=== PATIENT | female | born 1960 | race Caucasian/White ===

== ENCOUNTER → 2020-10-23 07:10 | Outpatient (CLI) | payer OTHER, SELFPAY ==
--- NOTE | ~2020-10-23 | MM_ITS ---
EXAMINATION: MM screening jaden BI w dustin HISTORY: Screening mammogram, family history of breast cancer in her mother. TECHNIQUE: Craniocaudal and mediolateral oblique 3-D tomosynthesis images were obtained and synthetic 2-D images were generated. CAD analysis was submitted and interpreted. COMPARISON: 09/23/2019, 08/07/2018, 08/01/2018, 07/11/2017 BREAST PARENCHYMAL COMPOSITION: The breasts are heterogeneously dense, which may obscure small masses . FINDINGS: There is no evidence of suspicious mass, calcification, or architectural distortion to sugg est malignancy in either breast. There has been no suspicious interval change. IMPRESSION: 1. No mammographic evidence of malignancy. 2. Recommend routine screening mammography in one year. BI-RADS Category 1: Negative Reviewed, dictated and finalized at location A. 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
== END ==
PROVIDERS: Visit Provider Physician Assistant
DX: Z12.31 Encounter for screening mammogram for malignant neoplasm of breast (principal)
CPT/HCPCS: 77063; 77067

== ENCOUNTER → 2022-01-04 12:17 | Outpatient (CLI) | payer OTHER, SELFPAY ==
--- NOTE | ~2022-01-04 | MM_ITS ---
EXAMINATION: MM screening jaden BI w dustin HISTORY: Screening TECHNIQUE: Craniocaudal and mediolateral oblique 3-D tomosynthesis images were obtained and synthetic 2-D images were generated. CAD analysis was submitted and interpreted. COMPARISON: Comparison to multiple prior studies sequentially, with oldest reviewed study dated 02/2016. BREAST PARENCHYMAL COMPOSITION: The breasts are heterogenously dense, which may obscure small masses FINDINGS: There is no evidence of suspicious mass, calcification, or architectural distortion to sugg est malignancy in either breast. There has been no suspicious interval change. IMPRESSION: 1. No mammographic evidence of malignancy. 2. Recommend routine screening mammography in one year. BI-RADS Category 1: Negative Reviewed, dictated and finalized at location A.
== END ==
PROVIDERS: PCP Physician Assistant; Visit Provider Physician Assistant
DX: Z12.31 Encounter for screening mammogram for malignant neoplasm of breast (principal)
CPT/HCPCS: 77063; 77067

== ENCOUNTER → 2023-06-13 16:24 | Outpatient (CLI) | payer OTHER, SELFPAY ==
--- NOTE | ~2023-06-13 | MM_ITS ---
EXAMINATION: MM screening jaden BI w dustin HISTORY: Screening mammogram, family history of breast cancer in her mother. TECHNIQUE: Craniocaudal and mediolateral oblique 3-D tomosynthesis images were obtained and synthetic 2-D images were generated. CAD analysis was submitted and interpreted. COMPARISON: 01/04/2022, 10/23/2020, 09/23/2019 BREAST PARENCHYMAL COMPOSITION:The breasts are heterogeneously dense, which may obscure small masses. FINDINGS: There is an area of increased density in the posterior, central to lower right breast, only seen on MLO view. No parenchymal abnormality of the left breast identified. Stable benign-appearing calcifications present bilaterally. IMPRESSION: Increased asymmetric density in the posterior, central lower right breast on MLO view. Spot compressi on and true lateral views, and possibly ultrasound, are recommended for further evaluation. BI-RADS Category 0: Incomplete: Needs additional imaging evaluation. Reviewed, dictated and finalized at location . IMPRESSION: Increased asymmetric density in the posterior, central lower right breast on ML O view. Spot compression and true lateral views, and possibly ultrasound, are r ecommended for further evaluation. BI-RADS Category 0: Incomplete: Needs additional imaging evaluation.
== END ==
PROVIDERS: PCP Physician Assistant; Visit Provider Family Medicine
DX: Z12.31 Encounter for screening mammogram for malignant neoplasm of breast (principal); R92.8 Other abnormal and inconclusive findings on diagnostic imaging of breast
CPT/HCPCS: 77063; 77067

== ENCOUNTER → 2023-07-05 08:20 | Outpatient (CLI) | payer OTHER, SELFPAY ==
--- NOTE | ~2023-07-05 | MMUS_ITS ---
EXAMINATION: MM diagnostic jaden RT w dustin, US breast RT limited HISTORY: Follow-up right breast asymmetry TECHNIQUE: Additional 3-D tomosynthesis images of the right breast were performed and synthetic 2-D i mages were generated. CAD analysis was submitted and interpreted. High resolution Limited right breas t ultrasound was performed. COMPARISON: Comparison to multiple prior studies sequentially, with oldest reviewed study dated 12/2017. BREAST PARENCHYMAL COMPOSITION: The breasts are heterogeneously dense, which may obscure small masses FINDINGS: MAMMOGRAPHIC FINDINGS: There is a focal spiculated asymmetry in the lower aspect of the right breast. There are no suspiciou s calcifications. ULTRASOUND: Limited right breast ultrasound: At 7:00, 5 cm from the nipple there is an irregular shaped hypoechoi c antiparallel 9 mm mass with focal internal echogenic foci, likely calcification. There is mixed pos terior attenuation. At 5:00, 2 cm from the nipple there is a slightly irregular shaped hypoechoic 4 m m mass without internal vascularity or significant posterior features. At 8:00, 5 cm from the nipple, there is an oval hypoechoic 4 mm mass without posterior features. There is internal vascularity. IMPRESSION: 1. Multiple abnormal right breast masses. 2. Ultrasound-guided biopsy of dominant right breast mass at 7:00, 5 cm from the nipple is recommende d. BI-RADS category 4, suspicious findings. Reviewed, dictated and finalized at location A. E CARE NURSING ASSISTANT IMPRESSION: 1. Multiple abnormal right breast masses. 2. Ultrasound-guided biopsy of dominant right breast mass at 7:00, 5 cm from th e nipple is recommended. BI-RADS category 4, suspicious findings.
== END ==
PROVIDERS: PCP Physician Assistant; Visit Provider Physician Assistant
DX: N63.0 Unspecified lump in unspecified breast (principal); R92.8 Other abnormal and inconclusive findings on diagnostic imaging of breast
CPT/HCPCS: 76642; 77061; 77065; G0279

== ENCOUNTER 2023-07-14 09:15 | Outpatient (CLI) | payer OTHER, SELFPAY ==
--- NOTE | ~2023-07-14 | MMUS_ITS ---
EXAMINATION: US breast biopsy RT w image, MM post biopsy invasive RT DATE: 07/14/2023 12:10 (accession [id number]), 07/14/2023 11:43 (accession [id number]) INDICATION: Indeterminate mass at the 7:00 location of the right breast. Ultrasound-guided core biops y is requested to evaluate for malignancy. TECHNIQUE AND FINDINGS: The risks and potential benefits of the procedure were discussed with the patient including bleeding and infection. A time out was performed. The skin of the right breast was prepared and draped in usua l sterile fashion. 1% lidocaine was used for superficial anesthesia. 1% lidocaine with epinephrine wa s used for deep anesthesia. A vacuum-assisted biopsy needle was advanced through to the outer edge of the region of interest from an inferolateral approach utilizing sonographic guidance. A total of five tissue core samples were o btained through the lesion. A tissue marker clip was then placed at the biopsy site. The first marker did not definitely appear to deploy therefore, a second marker was placed. Hemostasis was achieved. A sterile bandage was applied. The patient tolerated procedure well and there was no evidence of immediate complication. The patient was given verbal instructions to return to the Emergency Department in the event of severe breast pa in or rapid breast enlargement. A two view right breast mammogram was obtained to document tissue mar ker clip placement. IMPRESSION: 1. Successful ultrasound-guided vacuum-assisted biopsy of right breast mass with tissue marker placem ent. Reviewed, dictated and finalized at location A. SPECIALIST IMPRESSION: 1. Successful ultrasound-guided vacuum-assisted biopsy of right breast mass wit h tissue marker placement.
== END 2023-07-14 09:16 | disposition home or self-care (01) ==
PROVIDERS: PCP Physician Assistant; Visit Provider Physician Assistant
DX: N63.13 Unspecified lump in the right breast, lower outer quadrant (principal)
CPT/HCPCS: 19083; 88305; 88342; 88360

== ENCOUNTER 2024-12-11 23:45 | Emergency (ER) | payer OTHER, SELFPAY ==
--- NOTE | ~2024-12-11 | XR_ITS ---
Clinical Indication: Palpitations AP and lateral views of the chest: Comparison: None Findings: The lungs are clear, without evidence of focal consolidation or pleural effusion. Possible COPD. Cardiomediastinal silhouette is within normal limits. Bones and soft tissues are unremarkable. Impression: Clear lungs. Possible COPD. Reviewed, dictated and finalized at location . Impression: Clear lungs. Possible COPD.
--- OUTSIDE RECORDS SUMMARY | 2024-12-11 23:47 | XMS_ITS | Encounter Summary ---
Author Organization [facility] Healthcare Address [address] [place] [address] Care Team Providers Care Fire Equipment Inspector Name Role Phone Andriy Burgos MD Primary Care Provider [phone] Reason for Visit * Diagnostic Imaging (Routine) - Closed Specialty Diagnoses / Procedures Referred By Contac t Referred To Contact Procedures Breast Imaging Screening Outside Reference Transcribed Order, Provider Referral ID Status Reason Start Date Expiration Date Visits Re quested Visits Authorized [id number] Closed 08/08/2023 09/06/2024 1 1 Encounter Details Date Type Department Care Team (Late st Contact Info) Description 08/01/2018 Hospital Encounter [facility] [address] [place] [id number] Social History Tobacco Use Types Packs/Day Years Used Date Smoking Tobacco: Former Cigarettes 0.5 22 S tarted: 1982 Smokeless Tobacco: Never Alcohol Use Standard Drinks/Week Comments Yes 0 (1 standard drink = 0.6 oz pur e alcohol) AUDIT-C Answer Date Recorded Q1: How often do you have a drink containing alc ohol? 2-3 times a week 11/03/2023 Q2: How many drinks containi ng alcohol do you have on a typical day when you are drinking? 3 or 4 11/03/2023 Q3: How often do you have si x or more drinks on one occasion? Weekly 11/03/2023 Personal Safety Answer Date Recorded Have you ever been in or are you currently in a harmful physical or emotional relationship or is someone making you feel afraid or unsafe? Denies 09/25/2023 Comments No Sex and Gender Information Value Date Recorded Sex Assigned at Not on file Legal Sex Female 12:53 AM BELL ATTENDANT Gender Identity Not on file Sexual Orientation Not on file documented as of this encounter Functional Status * Audit-C Score Answer Date of Assessment Author 1 09/25/2023 6:42 AM BELL ATTENDANT Shaylee Herrera RN * Question Answer Date of Assessment Author Q1: How often do you have a drink containing alcohol? 2-3 times a week 11/01/2023 2:10 PM BELL ATTENDANT Lillie Grissom , EDDIE Q2: How many drinks containing alcohol do you have on a typical day when you are drinking? 3 or 4 11/03/2023 2:57 PM BELL ATTENDANT Mary Anne Marshall Q3: How often do you have six or more drinks on one occasion? Weekly 11/03/2023 2:57 PM BELL ATTENDANT Mary Anne Marshall documented as of this encounter Plan of Treatment Not on file documented as of this encounter Procedures Procedure Name Priority Date/Time Associated Diagnosis Comments BREAST IMAGING MG SCREENING OUTSIDE REFERENCE Routine 08/01/2018 12:00 AM BELL ATTENDANT documented in this encounter Results * Breast Imaging Screening Outside Reference (08/01/2018 12:00 AM BELL ATTENDANT) Impressions RAD_MAMMO_[facility] - 08/08/2023 10:02 AM BELL ATTENDANT These images are for Reference purposes only and have not been reviewed by [facility] Radiology. There will be no report generated by a [facility] Radiologist. Narrative [facility]MO[facility] - 08/08/2023 10:02 AM BELL ATTENDANT EXAMINATION: Images For Reference Purposes Only us Provider Transcribed Order IMG MAMMO PROCEDURES Final Result [facility] documented in this encounter Visit Diagnoses Not on filedocumented in this encounter Care Teams Fire Equipment Inspector Relationship Specialty Start Date End Date Andriy Burgos MD [address] [place] [id number] PCP - General 03/03/11 11/04/21 documented as of this encounter
--- OUTSIDE RECORDS SUMMARY | 2024-12-11 23:47 | XMS_ITS | Encounter Summary ---
Author Organization [facility] Address [address] [place] [address] Care Team Providers Care Government Affairs Manager Name Role Phone Sue Thompson Primary Care Provider [phone] Reason for Referral * Procedure (Routine) - Closed Specialty Diagnoses / Procedures Referred By Charly owusu Referred To Contact CARDIOLOGY Diagnoses Benign essential hypertension Hyperlipidemia, unspecified hyperlipidemia type Procedures STRESS TEST ONLY, EXERCISE Rajinder Schumacher MD [address] [address] Phone: tel: fax: Referral ID Status Reason Start Date Expiration Date Visits Re quested Visits Authorized [id number] Closed 10/30/2024 10/30/2025 1 1 Reason for Visit * Procedure (Routine) - Closed Specialty Diagnoses / Procedures Referred By Charly owusu Referred To Contact CARDIOLOGY Diagnoses Benign essential hypertension Hyperlipidemia, unspecified hyperlipidemia type Procedures STRESS TEST ONLY, EXERCISE Rajinder Schumacher MD [address] [address] Phone: tel: fax: Referral ID Status Reason Start Date Expiration Date Visits Re quested Visits Authorized [id number] Closed 10/30/2024 10/30/2025 1 1 Encounter Details Date Type Department Care Team (Late st Contact Info) Description 12/11/2024 9:30 AM CDT Hospital Encounter [facility] [address] [place] [address] Rajinder Schumacher MD [facility] [address] [place] [address] Arrived Social History Tobacco Use Types Packs/Day Years Used Date Smoking Tobacco: Former Cigarettes 1976 Smokeless Tobacco: Never Alcohol Use Standard Drinks/Week Comments Yes 0 (1 standard drink = 0.6 oz pur e alcohol) social Comments Unknown Sex and Gender Information Value Date Recorded Sex Assigned at Female 11/08/2024 9:53 AM CDT Legal Sex Female 7:23 PM CDT Gender Identity Not on file Sexual Orientation Not on file documented as of this encounter Plan of Treatment Upcoming Encounters Date Type Department Care Team (Late st Contact Info) Description 01/15/2025 8:45 AM CDT Office Visit [facility] [address] [place] [address] Rajinder Schumacher MD [facility]. [address] [address] Pending Results Name Type Priority Associated Diagnoses Date /Time STRESS TEST ONLY, EXERCISE Cardiac Services Routine Benign essential hypertension Hyperlipidemia, unspecified hyperlipidemia type 12/11/2024 9:30 AM CDT documented as of this encounter Procedures Procedure Name Priority Date/Time Associated Diagnosis Comments STRESS TEST ONLY, EXERCISE Routine 12/11/2024 9:30 AM CDT Benign essential hypertension Hyperlipidemia, unspecified hyperlipidemia type Procedure Note - Rajinder Schumacher MD - 12/11/2024 9:30 AM CDTThis note is in progress. Patient Name: SOLO DEL TORO Date of : 1960 Account: [id number] Facility: [facility] Location: [facility] Date of Service: 12/11/2024 Stress Test INDICATION: Chest pain. PROCEDURE: Patient exercised on treadmill using standard Koby protocol. She was monitored for heart rate response, blood pressure response, ECG changes and arrhythmias at rest, during exercise and recovery. FINDINGS: Baseline ECG demonstrated normal sinus rhythm, minimal upsloping ST depression. Resting heart rate was 102 beats per minute, blood pressure at rest 150/84 mmHg. The patient exercised 7 minutes Koby protocol, achieved a maximum heart rate of 166 beats per minute, which is 106% of her maximum age predicted heart rate. Patient achieved a maximal blood pressure of 162/84 mmHg. During exercise, the patient had no complaints of chest pain. Test was terminated for fatigue. Stress ECG demonstrated minimal upsloping ST changes. In recovery, the patient's symptoms resolved. Recovery ECG demonstrated no significant ST elevation or depression. There were no arrhythmias during exercise or in recovery. CONCLUSION: 1. Clinically and electrocardiographically negative treadmill exercise test with adequate exercise capacity. 2. Overall, test is low risk for myocardial event. Signature/Date: RAJINDER SCHUMACHER #[id number] /DIN documented in this encounter Visit Diagnoses Diagnosis Benign essential hypertension Essential hypertension, benign Hyperlipidemia, unspecified hyperlipidemia type documented in this encounter Care Teams Government Affairs Manager Relationship Specialty Start Date End Date Sue Thompson PA [address] [place] [address] PCP - General PHYSICIAN FURNACE HELPER 08/20/24 documented as of this encounter
--- OUTSIDE RECORDS SUMMARY | 2024-12-11 23:47 | XMS_ITS | Clinical Summary ---
Author Organization [facility] [address] Address [address] [place] [address] Care Team Providers Care Control Systems Engineer Name Role Phone Andriy Burgos MD Unavailable [phone] Melani Mclean MD Unavailable [phone] Rajni Jimenez MD Unavailable [phone] Kevin Ryder MD PhD Unavailable [facility] Allergies No known active allergies Medications cyanocobalamin (Dodex) 1,000 mcg/mL injectionIndicat ions:Prevention of Vitamin B12 Deficiency Inject 1 mL (1,000 mcg total) into the muscle as instructed every 30 (thirty) days Last dose more than one month Active triamcinolone (KENALOG) 0.5 % creamIndications :Skin Inflammation,ski n rash Apply 1 Application topically as needed for irritation or rash Active LORazepam (ATIVAN) 0.5 mg tablet Take 1 tablet (0.5 mg total) by mouth as needed for anxiety 3 Active LORazepam (ATIVAN) 1 mg tabletIndication s:anxiety Take 1 tablet (1 mg total) by mouth as needed for anxiety 3 Active losartan (COZAAR) 25 mg tabletIndication s:hypertension Take 1 tablet (25 mg total) by mouth every morning 4 Active levothyroxine sodium (Tirosint) 88 mcg capsuleIndicatio ns:hypothyroidis m Take 1 capsule (88 mcg total) by mouth every morning Active MAGNESIUM ORALIndications: supplement Take 1 tablet by mouth 2 (two) times a day Active selenium 200 mcg tabletIndication s:supplement Take 1 tablet (200 mcg total) by mouth daily after lunch Active cholecalciferol, vitD3,/vit K2 (VITAMIN D3-VITAMIN K2 ORAL)Indications :supplement Take 4 sprays by mouth every morning Liposome spray once a day Active UNABLE TO FINDIndications: supplement Take 1-2 each by mouth as needed (stress) Med Name: neurocalm Active UNABLE TO FINDIndications: supplement Take 3 each by mouth every morning Med Name: catalyn (multivitamin) Active UNABLE TO FINDIndications: supplement Take 2 each by mouth every morning Med Name: AHCC Active UNABLE TO FINDIndications: supplement Take 1 each by mouth every morning Med Name: PRP 53:liposome spray 3 sprays once a day Active UNABLE TO FINDIndications: supplement Take 2 each by mouth 2 (two) times a day Med Name: advantage ambertose Active UNABLE TO FINDIndications: supplement Take 1-2 each by mouth nightly Med Name: Drenamine tablet Active UNABLE TO FINDIndications: supplement/ blood pressure Take 2 each by mouth daily after lunch Med Name: cataplex G: Blood pressure supplement take once a day Active UNABLE TO FINDIndications: supplement per Chiropractor for sinuses Take 2 each by mouth 2 (two) times a day Med Name: sinatrol Active insulin syringe-needle U-100 1 mL 31 gauge x 5/16 syringe USE TO INJECT B12 ONCE WEEKLY FOR 90 DAYS. Active Active Problems Problem Noted Date Diagnosed Date Personal history of radiation therapy 12/27/2023 Malignant neoplasm of female breast 09/01/2023 Malignant neoplasm of lower- outer quadrant of right breast of female, estrogen receptor positive 08/30/2023 Cancer Staging:Pathologic stage from 10/31/2023:Stage IA(pT1c, pN0(sn), cM0, G2, ER+, OK+, HER2-) - Signed by Rajni Jimenez MD on 10/31/2023 Dizziness and giddiness 12/12/2022 Sensorineural hearing loss (SNHL) of both ears 0 11/25/2021 Tinnitus of both ears 11/25/2021 Otosclerosis of left ear 11/25/2021 Hypothyroidism 01/11/2014 Overview (12/02/2016): HYPOTHYROIDISM NOS Encounters Date Type Department Care Team Description 11/25/2024 Telephone [facility] Surgery [facility] [address] [place] [address] Stephanie Sutton RN 11/22/2024 10:11 AM CDT - 11/22/2024 11:59 PM CDT Hospital Encounter [facility] [address] [place] [id number] Malignant neoplasm of lower-outer quadrant of right breast of female, estrogen receptor positive (HCC) Discharge Disposition: Discharge to home or self care 11/22/2024 Results Follow-Up [facility] Urology [address] [facility] Medical Office Building [address] [place] [address] Melani Mclean MD 11/15/2024 Telephone [facility] Surgery [facility] [address] [place] [address] Melani Mclean MD 10/31/2024 4:00 PM BINDERY LEADPERSON Office Visit [facility] Medical Office Building 2 Radiation Oncology [address] [place] [id number] Sarha Escoto, PA Malignant neoplasm of lower-outer quadrant of right breast of female, estrogen receptor positive (HCC) (Primary Dx); Personal history of radiation therapy 10/25/2024 Telephone [facility] Surgery [facility] Floor [address] [place] [address] Melani Mclean MD Med Refill from Last 3 Months Surgical History Surgery Date Site/Laterality Comments BREAST BIOPSY 08/28/2022 - 08/27/2023 WISDOM TOOTH EXTRACTION 08/28/2016 - 08/27/2017 BREAST LUMPECTOMY 09/25/2023 Right Medical History Medical History Date Comments Disorder of thyroid Thyroid dise ase Anxiety Thyroid disease HL (hearing loss) Dizziness Palpitations Hypertension Breast cancer (HCC) Family History Medical History Relation Name Comments Alzheimer's disease Father Heart disease Father Breast cancer Mother Heart disease Mother Ovarian cancer Mother Thyroid disease Mother Breast cancer Sister Thyroid disease Sister Thyroid dise ase; Anesthesia problems Neg Hx Relation Name Status Comments Father Mother Sister Alive Social History Tobacco Use Types Packs/Day Years Used Date Smoking Tobacco: Former Cigarettes 0.5 22 S tarted: 1981 Smokeless Tobacco: Never Tobacco Cessation:Counseling Given: Not Answered Alcohol Use Standard Drinks/Week Comments Yes 0 [...] on file Legal Sex Female 12:53 AM BINDERY LEADPERSON Gender Identity Not on file Sexual Orientation Not on file Obstetrics History Last Filed Vital Signs Vital Sign Reading Time Taken Comments Blood Pressure 149/88 10/31/2024 4:06 PM BINDERY LEADPERSON Pulse 96 10/31/2024 4:06 PM BINDERY LEADPERSON Temperature 36.6 C (97.8 F) 11/03/2023 2:54 PM BINDERY LEADPERSON Respiratory Rate 18 11/03/2023 2:54 PM BINDERY LEADPERSON Oxygen Saturation 100% 10/31/2024 4:06 PM BINDERY LEADPERSON Inhaled Oxygen Concentration - - Weight 71.7 kg (158 lb) 10/31/2024 4:06 PM BINDERY LEADPERSON Height 170.2 cm (5' 7.01 ) 05/24/2024 9:35 AM CD T Body Mass Index 24.74 05/24/2024 9:35 AM CDT Plan of Treatment Health Maintenance Due Date Last Done Comments Cervical Cancer Screening 1962 Colon Cancer Screening-Colonoscopy 1962 Depression Screening 1962 Hepatitis C Screening 1962 DTaP/Tdap/Td Vaccine (1 - Tdap) 1973 Hepatitis B Screening 1980 Regular Well Visit/Exam 18-64 1980 Zoster Vaccine (1 of 2) 2012 Influenza Vaccine (Season Ended) 2025 Breast Cancer Screening-Mammogram 05/24/2025 024 Pneumococcal vaccine <65 Aged Out No longer eligible based on patient's age to complete this topic Medical Devices Implanted Type Area Supply Chain Development Manager Device Identifier Shelf Expiration Date Model / Serial / Lot [employer] Marker Tissue Needle Delivery Spiral Capped Seed Radiopaque Skilled Nursing Stainless Steel Low Nickel [employer] [id number] - [id number] Implanted:Qty: 1 on 09/14/2023 by Joie Brito MD at [facility] Right: Breast [employer] [id number] 03/27/2027 [id number] Procedures Procedure Name Priority Date/Time Associated Diagnosis Comments MRI BREAST BILATERAL W WO CONTRAST Schedule Routine, Read Routine (OP Routine) 11/22/2024 12:00 PM CDT Malignant neoplasm of lower-outer quadrant of right breast of female, estrogen receptor positive (HCC) DIAGNOSTIC MAMMOGRAM BILATERAL W ANDREA Schedule Routine, Read Routine (OP Routine) 05/24/2024 10:42 AM CDT Malignant neoplasm of lower-outer quadrant of right breast of female, estrogen receptor positive (HCC) Malignant neoplasm of right female breast, unspecified estrogen receptor status, unspecified site of breast (HCC) from Last 3 Months or Most Recently Relevant to Health Maintenance Results * MRI Breast Bilateral W WO Contrast (11/22/2024 12:00 PM CDT) Anatomical Region Laterality Modality Breast Bilateral Magnetic Resonan ce 11/22/2024 1:57 PM CDT Impressions 11/22/2024 2:49 PM CDT 1. No evidence of malignancy in either breast. 2. Area of enhancement measuring 1.1 cm within the left lower outer posterior breast skin at the inframammary fold, likely artifactual versus a skin mole. Clinical correlation is recommended. 3. Post treatment changes of right outer breast conservation therapy with a known postoperative seroma measuring up to 4.5 cm. OVERALL FINAL ASSESSMENT: BI-RADS Category 2: Benign. RECOMMENDATION: 1. Recommend clinical evaluation of the area of enhancement of the left lower outer breast skin. 2. Annual screening mammography and breast MRI are recommended. Dictated by: Torin Hermosillo D.O. The radiology attending physician has personally reviewed this study, and had reviewed and/or edited this written report and agrees with it. Electronically signed by: Sosa Ledesma M.D. Narrative 11/22/2024 2:49 PM CDT EXAMINATION: 1. MRI EXAMINATION OF THE BREASTS WITH AND WITHOUT CONTRAST 2. 3D POST PROCESSING ON A DEDICATED 3D WORKSTATION HISTORY: High-risk Screening. 64-year-old woman presents for a high-risk screening MRI with history of right breast invasive ductal carcinoma status post BCT in early 2023. TECHNIQUE: MRI examination of the breasts per breast tumor protocol with and without gadolinium contrast. A dedicated breast imaging coil was used. The images were transferred to a breast CAD system for 3D post processing and contrast kinetics analysis. CONTRAST: Gadoterate meglumine, 14 ml COMPARISON: Multiple prior studies, most recently 05/24/2024 and dating back to 08/01/2018. BREAST COMPOSITION: Heterogeneous fibroglandular tissue BACKGROUND PARENCHYMAL ENHANCEMENT: Mild FINDINGS: Right: No suspicious mass or non-mass enhancement of the right breast. Known postoperative seroma in the right lower outer breast that measures up to 4.5 x 3.1 x 2.4 cm (AP by TV by CC). Posttreatment changes of right outer breast conservation therapy. Left: No suspicious mass or non-mass enhancement of the left breast. There is an area of enhancement measuring 1.1 x 0.6 cm within the left lower outer posterior breast skin, which may be artifactual versus a skin mole. No abnormally enlarged lymph nodes are identified in the visualized portions of either axilla. Procedure Note Sosa Ledesma MD - 11/22/2024 EXAMINATION: 1. MRI EXAMINATION OF THE BREASTS WITH AND WITHOUT CONTRAST 2. 3D POST PROCESSING ON A DEDICATED 3D WORKSTATION HISTORY: High-risk Screening. 64-year-old woman presents for a high-risk screening MRI with history of right breast invasive ductal carcinoma status post BCT in early 2023. TECHNIQUE: MRI examination of the breasts per breast tumor protocol with and without gadolinium contrast. A dedicated breast imaging coil was used. The images were transferred to a breast CAD system for 3D post processing and contrast kinetics analysis. CONTRAST: Gadoterate meglumine, 14 ml COMPARISON: Multiple prior studies, most recently 05/24/2024 and dating back to 08/01/2018. BREAST COMPOSITION: Heterogeneous fibroglandular tissue BACKGROUND PARENCHYMAL ENHANCEMENT: Mild FINDINGS: Right: No suspicious mass or non-mass enhancement of the right breast. Known postoperative seroma in the right lower outer breast that measures up to 4.5 x 3.1 x 2.4 cm (AP by TV by CC). Posttreatment changes of right outer breast conservation therapy. Left: No suspicious mass or non-mass enhancement of the left breast. There is an area of enhancement measuring 1.1 x 0.6 cm within the left lower outer posterior breast skin, which may be artifactual versus a skin mole. No abnormally enlarged lymph nodes are identified in the visualized portions of either axilla. IMPRESSION: 1. No evidence of malignancy in either breast. 2. Area of enhancement measuring 1.1 cm within the left lower outer posterior breast skin at the inframammary fold, likely artifactual versus a skin mole. Clinical correlation is recommended. 3. Post treatment changes of right outer breast conservation therapy with a known postoperative seroma measuring up to 4.5 cm. OVERALL FINAL ASSESSMENT: BI-RADS Category 2: Benign. RECOMMENDATION: 1. Recommend clinical evaluation of the area of enhancement of the left lower outer breast skin. 2. Annual screening mammography and breast MRI are recommended. Dictated by: Torin Hermosillo D.O. The radiology attending physician has personally reviewed this study, and had reviewed and/or edited this written report and agrees with it. Electronically signed by: Sosa Ledesma M.D. Melani Mclean MD IMG MRI PROCEDURES Elsa loren Result * Diagnostic Mammogram Bilateral W Andrea (05/24/2024 10:42 AM CDT) Anatomical Region Laterality Modality Breast Bilateral Mammography 05/24/2024 10:5 0 AM CDT Impressions 05/24/2024 10:53 AM CDT 1. Surgical changes of RIGHT breast partial mastectomy with radiodense surrounding area that likely represents a seroma. 2. No new suspicious abnormality concerning for malignancy in EITHER breast. OVERALL FINAL ASSESSMENT: BI-RADS Category 2: Benign. RECOMMENDATION: Annual diagnostic mammography is recommended. Dictated by: Nael Clark MD The radiology attending physician has personally reviewed this study, and had reviewed and/or edited this written report and agrees with it. Electronically signed by: Yaima Bullock M.D. Narrative 05/24/2024 10:53 AM CDT EXAMINATION: BILATERAL DIGITAL DIAGNOSTIC MAMMOGRAM INCLUDING CAD AND BILATERAL DIGITAL BREAST TOMOSYNTHESIS HISTORY: Patient with right breast invasive ductal carcinoma status post partial mastectomy. COMPARISON: Mammogram from 09/14/2023, multiple prior mammograms dating back to 09/23/2019 TECHNIQUE: Full field digital mammographic views of BOTH breasts were performed, including computer aided detection (CAD) and BILATERAL digital breast tomosynthesis (DBT). BREAST PARENCHYMAL COMPOSITION: There are scattered areas of fibroglandular density. MAMMOGRAM FINDINGS: Surgical changes of partial mastectomy within the posterior aspect of the RIGHT breast. Radiodense area surrounding the surgical site likely represents a seroma. No new suspicious abnormalities identified. No suspicious abnormality noted within the LEFT breast. Procedure Note Yaima Bullock MD - 05/24/2024 EXAMINATION: BILATERAL DIGITAL DIAGNOSTIC MAMMOGRAM INCLUDING CAD AND BILATERAL DIGITAL BREAST TOMOSYNTHESIS HISTORY: Patient with right breast invasive ductal carcinoma status post partial mastectomy. COMPARISON: Mammogram from 09/14/2023, multiple prior mammograms dating back to 09/23/2019 TECHNIQUE: Full field digital mammographic views of BOTH breasts were performed, including computer aided detection (CAD) and BILATERAL digital breast tomosynthesis (DBT). BREAST PARENCHYMAL COMPOSITION: There are scattered areas of fibroglandular density. MAMMOGRAM FINDINGS: Surgical changes of partial mastectomy within the posterior aspect of the RIGHT breast. Radiodense area surrounding the surgical site likely represents a seroma. No new suspicious abnormalities identified. No suspicious abnormality noted within the LEFT breast. IMPRESSION: 1. Surgical changes of RIGHT breast partial mastectomy with radiodense surrounding area that likely represents a seroma. 2. No new suspicious abnormality concerning for malignancy in EITHER breast. OVERALL FINAL ASSESSMENT: BI-RADS Category 2: Benign. RECOMMENDATION: Annual diagnostic mammography is recommended. Dictated by: Nael Clark MD The radiology attending physician has personally reviewed this study, and had reviewed and/or edited this written report and agrees with it. Electronically signed by: Yaima Bullock M.D. Melani Mclean MD IMG MAMMO PROCEDURES Fi nal Result from Last 3 Months or Most Recently Relevant to Health Maintenance Insurance [facility] Care Teams Control Systems Engineer Relationship Specialty Start Date End Date Sue Thompson PA [address] [place] [address] PCP - General Physician Skiff Operator 11/13/24 Andriy Burgos MD [address] [place] [id number] 11/05/21 Melani Mclean MD [address] [id number] Surgeon Surgical Oncology 09/25/23 Rajni Jimenez MD [facility] [address] [address] Radiation Oncologist Radiation Oncology 10/31/23 Kevin Ryder MD PhD [address] [place] [address] Medical Oncologist/Senior Project Manager Medical Oncology 11/01/23
--- OUTSIDE RECORDS SUMMARY | 2024-12-11 23:47 | XMS_ITS | Data Portability ---
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 Plan of Treatment Reminders Order Date Submit Date Provider Last Modified By Organization Details Last Modified Time Details Appointments None recorded. Lab vitamin B12 + folate, serum or blood 2022 023 [facility] [employer], [address], [place], [address], 3 10:45:02 T3, free, serum or plasma 2022 023 [employer] [facility], [address], [place], [address], 3 10:45:03 T4, free, serum 2022 023 [employer] [facility], [address], [place], [address], 3 10:45:00 TSH, serum or plasma 2022 023 [employer] [facility], [address], [place], [address], 3 10:45:01 CMP, serum or plasma 2022 023 [employer] [facility], [address], [place], [address], 3 10:44:57 thyroid peroxidase (tpo) Ab, serum 2022 023 [facility], [address], [address], [place], [address], 3 10:44:59 CBC w/ auto diff 2022 023 [facility], [address], [address], [place], [address], 3 10:44:58 T3, free, serum or plasma 2022 023 [facility], [address], [address], [place], [address], 3 17:05:25 T4, free, serum 2022 023 [facility], [address], [place], [address], 3 17:05:23 TSH, serum or plasma 2022 023 [facility], [address], [place], [address], 3 17:05:24 CMP, serum or plasma 2022 023 [facility], [address], [place], [address], 3 17:05:22 thyroid peroxidase (tpo) Ab, serum 2022 023 [facility], [address], [place], [address], 3 17:05:23 vitamin B12 + folate, serum or blood 2022 023 [facility], [address], [place], [address], 3 17:05:25 cortisol, am, serum 2022 023 [facility], [address], [address], [place], [address], 3 13:29:15 acth, plasma 2022 023 [facility], [address], [address], [place], [address], 3 13:29:15 Referral None recorded. Procedures None recorded. Surgeries None recorded. Imaging MAMMO, screening, digital, bilateral [email or web address] [facility], [address], [address], [place], [address], 3 09:04:52 Medication Orders cyanocobala min (vit B-12) 1,000 mcg/mL injection solution 2022 023 [id number], [address], [place], [id number], 3 09:36:24 Tirosint 100 mcg capsule 2022 023 [facility], [address], [place], [address], 3 12:26:56 Tirosint 100 mcg capsule 2022 023 [facility], [address], [place], [address], 3 13:24:34 escitalopra m 5 mg tablet 2022 023 [email or web address][id number], [address], [place], [id number], 3 17:18:00 cyanocobala min (vit B-12) 1,000 mcg/mL injection solution 2022 023 [facility] #[id number], [address] [facility], [place], [place], [id number], 12:23:08 Tirosint 100 mcg capsule 2022 023 [facility], [address], [place], [address], 12:31:17 Patient TargetsNo targets recorded. Patient InstructionsNo instructions recorded. Reason for Referral None Reported. Results Created Date Observation Date Name Description Value Unit Range Abnormal Flag Note LastModifiedBy Organization Detail LastModifiedTime 01/27/2001/30/2023 COMPR EHENS YOLANDE METAB OLIC PANEL glucose 84 mg/dL 65-99 normal Fasti ng refer ence inter demetrius Not Available [address], [address], 01/30/2023 17:05:22 01/27/20 23 01/30/2023 COMPR EHENS YOLANDE METAB OLIC PANEL urea nitrogen (BUN) 13 mg/dL 7-25 normal Not Available [facility] [address], [address], 01/30/2023 17:05:22 01/27/20 23 01/30/2023 COMPR EHENS YOLANDE METAB OLIC PANEL creatinine 0.77 mg/dL 0.50-1 .05 normal Not Available [address], [address], 01/30/2023 17:05:22 01/27/20 23 01/30/2023 COMPR EHENS YOLANDE METAB OLIC PANEL eGFR 88 mL/mi n/1.7 3m2 > or = 60 normal The eGFR is based on the CKD-E PI 2020 patricia vazquez. To calcu late the new eGFR from a previ ous Creat inine or Cysta kay C claritza t, go to https ://omid quinones.o rg/pr ofess ional s/ kdoqi /gfr% 5Fcal culat or Not Available [address], [address], 01/30/2023 17:05:22 01/27/20 23 01/30/2023 COMPR EHENS YOLANDE METAB OLIC PANEL BUN/creatini ne ratio NOT APPLIC ABLE (calc ) 6-22 Not Available [address], [address], 01/30/2023 17:05:22 01/27/20 23 01/30/2023 COMPR EHENS YOLANDE METAB OLIC PANEL sodium 140 mmol/ L 135-14 6 normal Not Available [address], [address], 01/30/2023 17:05:22 01/27/20 23 01/30/2023 COMPR EHENS YOLANDE METAB OLIC PANEL potassium 4.2 mmol/ L 3.5-5. 3 normal Not Available [address], [address], 01/30/2023 17:05:22 01/27/20 23 01/30/2023 COMPR EHENS YOLADNE METAB OLIC PANEL chloride 102 mmol/ L 98-110 normal Not Available [address], [address], 01/30/2023 17:05:22 01/27/20 23 01/30/2023 COMPR EHENS YOLANDE METAB OLIC PANEL carbon dioxide 29 mmol/ L 20-32 normal Not Available [address], [address], 01/30/2023 17:05:22 01/27/20 23 01/30/2023 COMPR EHENS YOLANDE METAB OLIC PANEL calcium 9.5 mg/dL 8.6-10 .4 normal Not Available [address], [address], 01/30/2023 17:05:22 01/27/20 23 01/30/2023 COMPR EHENS YOLANDE METAB OLIC PANEL protein, total 7.3 g/dL 6.1-8. 1 normal Not Available [address], [address], 01/30/2023 17:05:22 01/27/20 23 01/30/2023 COMPR EHENS YOLANDE METAB OLIC PANEL albumin 4.6 g/dL 3.6-5. 1 normal Not Available [address], [address], 01/30/2023 17:05:22 01/27/20 23 01/30/2023 COMPR EHENS YOLANDE METAB OLIC PANEL globulin 2.7 g/dL_ (calc ) 1.9-3. 7 normal Not Available [address], [address], 01/30/2023 17:05:22 01/27/20 23 01/30/2023 COMPR EHENS YOLANDE METAB OLIC PANEL albumin/glob ulin ratio 1.7 (calc ) 1.0-2. 5 normal Not Available [address], [address], 01/30/2023 17:05:22 01/27/20 23 01/30/2023 COMPR EHENS YOLANDE METAB OLIC PANEL bilirubin, total 0.9 mg/dL 0.2-1. 2 normal Not Available [address], [address], 01/30/2023 17:05:22 01/27/20 23 01/30/2023 COMPR EHENS YOLANDE METAB OLIC PANEL alkaline phosphatase 47 U/L 37-153 normal Not Available [address], [address], 01/30/2023 17:05:22 01/27/20 23 01/30/2023 COMPR EHENS YOLANDE METAB OLIC PANEL AST 13 U/L 10-35 normal Not Available [address], [address], 01/30/2023 17:05:22 01/27/20 23 01/30/2023 COMPR EHENS YOLANDE METAB OLIC PANEL ALT 12 U/L 6-29 normal Not Available [address], [address], 01/30/2023 17:05:22 01/27/20 23 01/30/2023 THYRO ID PEROX IDASE ANTIB ODIES thyroid peroxidase antibodies 45 IU/mL <9 high Not Available [address], [address], 01/30/2023 17:05:23 01/27/20 23 01/30/2023 T4, FREE T4, free 1.4 NG/dL 0.8-1. 8 normal Not Available [address], [address], 01/30/2023 17:05:23 01/27/20 23 01/30/2023 TSH TSH 2.11 mIU/L 0.40-4 .50 normal Not Available [address], [address], 01/30/2023 17:05:24 01/27/20 23 01/30/2023 VITAM IN B12/F OLATE , SERUM PANEL vitamin B12 1700 pg/mL 200-11 00 high Not Available [address], [address], 01/30/2023 17:05:25 01/27/2001/30/2023 VITAM IN B12/F OLATE , SERUM PANEL folate, serum 17.0 NG/mL normal Refer ence Range Low: <3.4 Borde rline : 3.4-5 .4 Illa l: >5.4 Not Available [address] [place], [address], 01/30/2023 17:05:25 01/27/20 23 01/30/2023 T3, FREE T3, free 2.5 pg/mL 2.3-4. 2 normal Not Available [address], [address], 01/30/2023 17:05:25 01/28/20 23 02/01/2023 ACTH, PLASM A acth, plasma 18 pg/mL 6-50 Refer ence range appli es only to speci mens colle cted betwe en 7am-1 0am. Not Available [address], [address], 02/01/2023 13:29:14 01/28/20 23 02/01/2023 CORTI GEOFFREY, A.M. cortisol, A.M. 23.9 mcg/d L high Refer ence Range 8 a.m. (7-9 a.m.) Speci men: 4.0-2 2.0 Not Available [address], [address], 02/01/2023 13:29:15 04/25/20 23 04/27/2023 COMPR EHENS YOLANDE METAB OLIC PANEL glucose 85 mg/dL 65-99 normal Fasti ng refer ence inter demetrius Not Available [address], [address], 04/27/2023 10:44:57 04/25/20 23 04/27/2023 COMPR EHENS YOLANDE METAB OLIC PANEL urea nitrogen (BUN) 19 mg/dL 7-25 normal Not Available [address], [address], 04/27/2023 10:44:57 04/25/20 23 04/27/2023 COMPR EHENS YOLANDE METAB OLIC PANEL creatinine 0.79 mg/dL 0.50-1 .05 normal Not Available [place] [address] [place], [address], 04/27/2023 10:44:57 04/25/20 23 04/27/2023 COMPR EHENS YOLANDE METAB OLIC PANEL eGFR 85 mL/mi n/1.7 3m2 > or = 60 normal Not Available [address] [address] [place], [address], 04/27/2023 10:44:57 04/25/20 23 04/27/2023 COMPR EHENS YOLANDE METAB OLIC PANEL BUN/creatini ne ratio SEE NOTE: (calc ) 6-22 Not Repor linda: BUN and Creat inine are withi n refer ence range . Not Available [place] [address] [place], [address], 04/27/2023 10:44:57 04/25/20 23 04/27/2023 COMPR EHENS YOLANDE METAB OLIC PANEL sodium 139 mmol/ L 135-14 6 normal Not Available [place] [address] [place], [address], 04/27/2023 10:44:57 04/25/20 23 04/27/2023 COMPR EHENS YOLANDE METAB OLIC PANEL potassium 4.1 mmol/ L 3.5-5. 3 normal Not Available [place] [address] [place], [address], 04/27/2023 10:44:57 04/25/20 23 04/27/2023 COMPR EHENS YOLANDE METAB OLIC PANEL chloride 103 mmol/ L 98-110 normal Not Available [place] [address] [place], [address], 04/27/2023 10:44:57 04/25/20 23 04/27/2023 COMPR EHENS YOLANDE METAB OLIC PANEL carbon dioxide 29 mmol/ L 20-32 normal Not Available [place] [address] [place], [address], 04/27/2023 10:44:57 04/25/20 23 04/27/2023 COMPR EHENS YOLANDE METAB OLIC PANEL calcium 9.3 mg/dL 8.6-10 .4 normal Not Available [address], [address], 04/27/2023 10:44:57 04/25/20 23 04/27/2023 COMPR EHENS YOLANDE METAB OLIC PANEL protein, total 6.7 g/dL 6.1-8. 1 normal Not Available [address], [address], 04/27/2023 10:44:57 04/25/2004/27/2023 COMPR EHENS YOLANDE METAB OLIC PANEL albumin 4.4 g/dL 3.6-5. 1 normal Not Available [address], [address], 04/27/2023 10:44:57 04/25/20 23 04/27/2023 COMPR EHENS YOLANDE METAB OLIC PANEL globulin 2.3 g/dL_ (calc ) 1.9-3. 7 normal Not Available [address], [address], 04/27/2023 10:44:57 04/25/20 23 04/27/2023 COMPR EHENS YOLANDE METAB OLIC PANEL albumin/glob ulin ratio 1.9 (calc ) 1.0-2. 5 normal Not Available [address], [address], 04/27/2023 10:44:57 04/25/20 23 04/27/2023 COMPR EHENS YOLANDE METAB OLIC PANEL bilirubin, total 0.8 mg/dL 0.2-1. 2 normal Not Available [address], [address], 04/27/2023 10:44:57 04/25/20 23 04/27/2023 COMPR EHENS YOLANDE METAB OLIC PANEL alkaline phosphatase 44 U/L 37-153 normal Not Available [facility] [address], [address], 04/27/2023 10:44:57 04/25/20 23 04/27/2023 COMPR EHENS YOLANDE METAB OLIC PANEL AST 12 U/L 10-35 normal Not Available [address], [address], 04/27/2023 10:44:57 04/25/20 23 04/27/2023 COMPR EHENS YOLANDE METAB OLIC PANEL ALT 13 U/L 6-29 normal Not Available [address], [address], 04/27/2023 10:44:57 04/25/20 23 04/27/2023 CBC (INCL UDES DIFF/ PLT) white blood cell count 4.5 thous and/u L 3.8-10 .8 normal Not Available [address], [address], 04/27/2023 10:44:58 04/25/20 23 04/27/2023 CBC (INCL UDES DIFF/ PLT) red blood cell count 4.55 mohinder on/uL 3.80-5 .10 normal Not Available [address], [address], 04/27/2023 10:44:58 04/25/20 23 04/27/2023 CBC (INCL UDES DIFF/ PLT) hemoglobin 13.9 g/dL 11.7-1 5.5 normal Not Available [address], [address], 04/27/2023 10:44:58 04/25/20 23 04/27/2023 CBC (INCL UDES DIFF/ PLT) hematocrit 42.7 % 35.0-4 5.0 normal Not Available [address] [place], [address], 04/27/2023 10:44:58 04/25/2004/27/2023 CBC (INCL UDES DIFF/ PLT) MCV 93.8 fL 80.0-1 00.0 normal Not Available [facility] [address], [address], 04/27/2023 10:44:58 04/25/2004/27/2023 CBC (INCL UDES DIFF/ PLT) MCH 30.5 pg 27.0-3 3.0 normal Not Available [facility] [address], [address], 04/27/2023 10:44:58 04/25/2004/27/2023 CBC (INCL UDES DIFF/ PLT) MCHC 32.6 g/dL 32.0-3 6.0 normal Not Available [facility] [address], [address], 04/27/2023 10:44:58 04/25/2004/27/2023 CBC (INCL UDES DIFF/ PLT) RDW 11.8 % 11.0-1 5.0 normal Not Available [facility] [address], [address], 04/27/2023 10:44:58 04/25/2004/27/2023 CBC (INCL UDES DIFF/ PLT) platelet count 223 thous and/u L 140-40 0 normal Not Available [facility] [address], [address], 04/27/2023 10:44:58 04/25/2004/27/2023 CBC (INCL UDES DIFF/ PLT) MPV 10.0 fL 7.5-12 .5 normal Not Available [facility] [address], [address], 04/27/2023 10:44:58 04/25/20 23 04/27/2023 CBC (INCL UDES DIFF/ PLT) absolute neutrophils 2304 cells /uL 1500-7 800 normal Not Available [address], [address], 04/27/2023 10:44:58 04/25/20 23 04/27/2023 CBC (INCL UDES DIFF/ PLT) absolute lymphocytes 1548 cells /uL 850-39 00 normal Not Available [address], [address], 04/27/2023 10:44:58 04/25/20 23 04/27/2023 CBC (INCL UDES DIFF/ PLT) absolute monocytes 477 cells /uL 200-95 0 normal Not Available [address], [address], 04/27/2023 10:44:58 04/25/20 23 04/27/2023 CBC (INCL UDES DIFF/ PLT) absolute eosinophils 99 cells /uL 15-500 normal Not Available [address], [address], 04/27/2023 10:44:58 04/25/20 23 04/27/2023 CBC (INCL UDES DIFF/ PLT) absolute basophils 72 cells /uL 0-200 normal Not Available [facility] [address], [address], 04/27/2023 10:44:58 04/25/20 23 04/27/2023 CBC (INCL UDES DIFF/ PLT) neutrophils 51.2 % normal Not Available [facility] [address], [address], 04/27/2023 10:44:58 04/25/20 23 04/27/2023 CBC (INCL UDES DIFF/ PLT) lymphocytes 34.4 % normal Not Available [facility] [address], [address], 04/27/2023 10:44:58 04/25/20 23 04/27/2023 CBC (INCL UDES DIFF/ PLT) monocytes 10.6 % normal Not Available [address], [address], 04/27/2023 10:44:58 04/25/20 23 04/27/2023 CBC (INCL UDES DIFF/ PLT) eosinophils 2.2 % normal Not Available [address], [address], 04/27/2023 10:44:58 04/25/20 23 04/27/2023 CBC (INCL UDES DIFF/ PLT) basophils 1.6 % normal Not Available [address], [address], 04/27/2023 10:44:58 04/25/20 23 04/27/2023 THYRO ID PEROX IDASE ANTIB ODIES thyroid peroxidase antibodies 77 IU/mL <9 high Not Available [address], [address], 04/27/2023 10:44:59 04/25/20 23 04/27/2023 T4, FREE T4, free 1.5 NG/dL 0.8-1. 8 normal Not Available [address], [address], 04/27/2023 10:45:00 04/25/20 23 04/27/2023 TSH TSH 0.25 mIU/L 0.40-4 .50 low Not Available [address], [address], 04/27/2023 10:45:01 04/25/20 23 04/27/2023 VITAM IN B12/F OLATE , SERUM PANEL vitamin B12 1766 pg/mL 200-11 00 high Not Available [address], [address], 04/27/2023 10:45:02 04/25/20 23 04/27/2023 VITAM IN B12/F OLATE , SERUM PANEL folate, serum 13.7 NG/mL normal Refer ence Range Low: <3.4 Borde rline : 3.4-5 .4 Lila l: >5.4 Not Available [facility] [address] [place], [address], 04/27/2023 10:45:02 04/25/20 23 04/27/2023 T3, FREE T3, free 2.7 pg/mL 2.3-4. 2 normal Not Available [facility] [address] [place], [address], 04/27/2023 10:45:03 03/08/20 23 04/12/2019 DEXA No observ ation record ed. [place] [address] [facility] [address], [place], [address], 01/05/2024 10:53:30 06/14/2006/13/2023 MAMMO , scree leonie, digit al, bilat eral No observ ation record ed. [address], [place], [address], 01/05/2024 10:53:31 06/14/2006/13/2023 MAMMO , vernone leonie, digit al, bilat eral No observ ation record ed. [address], [place], [address], 01/05/2024 10:53:31 06/14/2006/13/2023 MAMMO , scree leonie, digit al, bilat eral No observ ation record ed. [address], [place], [address], 01/05/2024 10:53:32 Result Notes None recorded. Problems Name Problem SNOMED Code Status Onset Date Resolution Date Notes Provider Name and Address Organization Details Recorded Time Cobalamin deficiency 131759803 Active 2022 Not Available [facility] 3 20:02:23 Essential hypertensi on 04061434 Active 2022 Not Available [facility] 3 20:02:23 Vitamin B12 deficiency (non anemic) 95313078 Active 2022 Not Available [facility] 3 20:02:24 Osteoporos is 34585485 Active 2018 Not Available [facility] 3 20:02:24 Iron deficiency anemia 28193898 Active 2022 Cara Jackman MD [address], [place], [address] , [facility] 3 13:14:22 Hypothyroi dism 80918485 Active 2022 Barb Green MD [address], [address], [place], [address] , [facility] 3 19:34:40 Lightheade dness 636433383 Active 2022 Cara Jackman MD [address], [address], [place], [address] , [facility] 3 13:49:44 Anxiety 59759690 Active 2022 Cara Jackman MD [address], [address], [place], [address] , [facility] 3 13:40:49 Mixed anxiety and depressive disorder 533791659 Active 2022 Cara Jackman MD [address], [place], [address] , [facility] 3 17:39:00 Vertigo 832263726 Active 2022 Cara Jackman MD [address], [place], [address] , [facility] 3 17:02:45 Bilateral tinnitus 1283628495848 Active 2022 Cara Jackman MD [address] [place] [address], [place] [address], [place], [address] , [facility] [employer] [facility] 3 09:57:11 Problem Notes Documentation Provider Name and Address Organization Details Recorded Time Cardiology Note : [facility] [address], [facility] [address]JQUTR, Jackie A (Legal name: Katie Del Toro) (id #[id number], : 1960) Documents sent via fax will include the following message: This fax may contain sensitive and confidential personal health information that is being sent for the sole use of the intended recipient. Unintended recipients are directed to securely destroy any materials received. You are hereby notified that the unauthorized disclosure or other unlawful use of this fax or any personal health information is prohibited. To the extent patient information contained in this fax is subject to 42 CFR Part 2, this regulation prohibits unauthorized disclosure of these records. If you received this fax in error, please visit [email or web address] to notify the sender and confirm that the information will be destroyed. If you do not have internet access, please call to notify the sender and confirm that the information will be destroyed. Thank you for your attention and cooperation. [ID:[id number]][facility] [employer] [facility] [address] [place] [address] , Date: 12/20/2022RE: Katie Meier, : 1960, PT ID #[id number] Jackman MD, I would like to thank you for referring Katie Del Toro to our practice for consultation and evaluation of Followup: Hypothyroidism , on 12/20/2022. I have enclosed a copy of the office evaluation for your records. Once again, thank you for allowing me to participate in the care of this patient. Sincerely, Electronically Signed by: BARB GREEN MD Encounter Reason/Date Followup: Hypothyroidism 12/20/2022 - 10:30AM - [facility] Longoria Problems:Reviewed Problems Hypothyroidism - Onset: 11/21/2022 Cobalamin deficiency - Onset: 10/03/2022 Vitamin B12 deficiency (non anemic) - Onset: 10/03/2022 Iron deficiency anemia - Onset: 11/10/2022 Essential hypertension - Onset: 10/03/2022 Osteoporosis - Onset: 04/18/2019 Lightheadedness - Onset: 11/23/2022 Allergies: Reviewed Allergies NKDA Medications: Reviewed Medications NameDate Source Hatch Thyroid 15 mg tabletTAKE 1 TABLET BY MOUTH EVERY DAY AT NOON11/22/22 filled surescripts Hatch Thyroid 30 mg tabletTAKE 1 TABLET BY MOUTH EVERY DAY AT NOON12/14/22 filled surescripts Hatch Thyroid 90 mg tabletTAKE 1 TABLET BY MOUTH EVERY DAY IN THE TBAGXFJ33/06/23 filled MIGRATION.[id number] aspirin 81 mg tablet,delayed releaseTake 1 tablet(s) every day by oral route., start started MIGRATION.[id number] BD Insulin Syringe 1 mL 25 x 1 U UTD11/21/18 filled MIGRATION.[id number] BD Luer-Fox Syringe 3 mL 25 gauge x 1 09/02/22 filled MIGRATION.[id number] busPIRone 5 mg tabletTake 1 tablet(s) twice a day by oral route.11/23/22 entered Cara Jackman MD cyanocobalamin (vit B-12) 1,000 mcg/mL injection solution1 ml sc q every 2 weeks12/20/22 prescribed Barb Green MD Tirosint 100 mcg capsuleTake 1 capsule(s) every day by oral route in the morning for 30 days.12/20/22 prescribed Barb Green MD triamcinolone acetonide 0.5 % topical creamAPPLY THIN LAYER TOPICALLY TO THE AFFECTED AREA TWICE DAILY11/24/22 filled surescripts Supplements with chiropractor (Dr. Young), Family History:Reviewed Family History Mother - Hypothyroidism Sister: thyroid issues Social History:Reviewed Social History Substance UseDo you or have you ever smoked tobacco?: Former smokerWhen did you quit smoking?: 16+ years since last cigaretteAt what age did you start smoking tobacco?: 22What is your level of alcohol consumption?: ModerateWhat is your level of caffeine consumption?: ModerateDiet and ExerciseWhat type of diet are you following?: Regular (Notes: watches sugar, gluten intake)Do you have any dietary restrictions?: NoWhat is your exercise level?: Occasional (Notes: twice a week)Education and OccupationWhat is 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 last /initial visit in August at that time we recommended patient split her armour thyroid at 90 mg in the morning and 30 mg around 1-2 pm in afternoon. we started B12 injections / weekly. She is only taking 90 mg in the morning and 30 mg in the afternoon- she is not taking the 45 mg She was on the levothyroxine in the past and wanted to go natural so hasn't been back on T4 therapy. She is taking several natural supplements from her holistic doctor that is bovine in content. She has fatigue, hair thinning, weight gain and doesn't feel well on her current regimen. She does struggle with insomnia and anxiety. Per patient her blood pressure and heart rate are normal at home and she gets white coat syndrome. She struggles withlabs from 11/17:B12 1421 pg/mLH/H normalPlt normalferritin / folate normaliron sat 32%TSH of 0.08 uIU/mlFT4 of 1.1 ng/dLFT3 of 2.9 pg/MLTPO 40 IU/mliodine 58 ng/mLglucose 90 mg/dLCr normalmag 2.1 ng/MLLFT normal Review of Systems:ROS as noted in the HPIPhysical ExamConstitutional:General Appearance: healthy-appearing, well-nourished, well-developed, not anxious/nervous, and no sweating. Level of Distress: no acute distress. Eyes:Lids and Conjunctivae: no discharge, pallor, lid lag, or periorbital edema and non-injected. Neck:Neck: supple, trachea midline, no masses, and full range of motion. Thyroid: no enlargement or nodules and non-tender. Neck vessels: no carotid bruits or thyroid bruits. Lymph Nodes: no anterior cervical LAD, posterior cervical LAD, submandibular LAD, submental LAD, preauricular LAD, or supraclavicular LAD. Cardiovascular:Apical Impulse: not displaced. Heart Auscultation: normal S1 and S2; no murmurs, rubs, or gallops; and regular rate and rhythm. Lungs:Auscultation: no wheezing, rales/crackles, or rhonchi and breath sounds normal, good air movement, and clear to auscultation. Psychiatric:Mental Status: normal mood and affect, no diffuse anxiety or paranoid ideations, and active and alert.Procedure DocumentationNone recordedAssessment/Plan1. Hypothyroidism-Patient is currently on natural thyroid hormone. Discussed and explained to patient that natural thyroid is generally 70% T3 and <30% T4 hormone and this is why it is generally dosed twice daily due to uptake and utilization of active thyroid hormone which further leads to suppression of TSH. She has been on her current dose of armour since her initial visit in August. Discussed with patient that natural thyroid hormone is not controlled and generally we cannot know for sure how much thyroid hormone she is getting per batch of medication she receives so generally the [facility] does not support the use of natural supplements for this reason. However she is willing to obtain labwork and titrate her medication to safe range therefore due to her level of compliance and understanding I will work with her to optimize her levels. Discussed that there is a new formulation of T4 called tirosint that has no fillers and this may be a more optimal formulation to trial. Will transition to tirosint 100 mcg daily as this contains no fillers and generally better tolerated on the stomach. She was reminded to take her tirosint on empty stomach with glass of water and wait one hour to eat or have her coffee in morning and up to 4 hours if ever taking any heartburn or reflux medications to help optimize absorption. Discussed paleo like diet with restriction of GMOs to help with energy and to optimize absorption of vitamins and minerals and reduce inflammation. Repeat thyroid panel in 4 weeks to assess response to therapy.E03.9: Hypothyroidism, unspecified T3, FREE T4, FREE TSH COMPREHENSIVE METABOLIC PANEL THYROID PEROXIDASE ANTIBODIES VITAMIN B12/FOLATE, SERUM PANEL CORTISOL, A.M. ACTH, PLASMA Tirosint 100 mcg capsule - Take 1 capsule(s) every day by oral route in the morning for 30 days. Qty: (30) capsule Refills: 2 ZOEY: Y Pharmacy: [facility] #[id number] Note to Pharmacy: brand name only, cannot take generic 2. Vitamin B12 deficiency (non anemic)-Continue on B12 injections but recommended she reduce frequency to every other week to maintain levels and help with energy. Spent up to 28 minutes preparing to see the patient (eg, review of tests), obtaining and/or reviewing separately obtained history, performing a medically appropriate examination and evaluation, counseling and educating the patient, ordering medications, tests, along with documenting clinical information in the electronic health record, independently interpreting results and communicating results to the patient and . Patient was provided a handwritten lab order which contains our fax number. If she chooses to go outside of the [facility] system to obtain labwork she was advised to provide our fax number and my information to the lab she will be obtaining labwork from in order to have her labs properly forwarded over for me to review so there is no loss of follow up due to use of outside network. She was also advised to contact our clinic informing us that she has completed her labwork so we are aware we will need to reach out to the appropriate laboratory to request her results be forwarded to us so I might have the ability to review and make further medical decision making in her case. She voiced understanding.E53.8: Deficiency of other specified B group vitamins cyanocobalamin (vit B-12) 1,000 mcg/mL injection solution - 1 ml sc q every 2 weeks Qty: (6) mL Refills: 2 Pharmacy: [facility] #[id number] INSULIN SYRINGE U-100 WITH NEEDLE 1 ML 31 GAUGE X 5/16 - inject B12 SQ once weekly x 90 Qty: 13 Units Refills: 3 Supplier: [facility] #[id number] Return to Office Cara Jackman MD for Follow Up 30 at [facility] on 01/03/2023 at 03:45 PM Barb Green MD for Follow Up 15 at [facility] [place] on 02/06/2023 at 08:00 AM SATINDER Cooln, [place] - [facility] [employer] [facility] 12/20/2022 14:03:32 Consult Note : [facility] [employer] [place] [id number], [place] [address]COMZK, Jackie A (Legal name: Katie Del Toro) (id #[id number], : 1960) Documents sent via fax will include the following message: This fax may contain sensitive and confidential personal health information that is being sent for the sole use of the intended recipient. Unintended recipients are directed to securely destroy any materials received. You are hereby notified that the unauthorized disclosure or other unlawful use of this fax or any personal health information is prohibited. To the extent patient information contained in this fax is subject to 42 CFR Part 2, this regulation prohibits unauthorized disclosure of these records. If you received this fax in error, please visit [email or web address] to notify the sender and confirm that the information will be destroyed. If you do not have internet access, please call to notify the sender and confirm that the information will be destroyed. Thank you for your attention and cooperation. [ID:[id number]][facility] [employer] [facility] [address] [address] , Date: 02/06/2023RE: Katie Del Toro, : 1960, PT ID #[id number] Jackman MD, I would like to thank you for referring Katie Del Toro to our practice for consultation and evaluation of Followup: Hypothyroidism , on 02/06/2023. I have enclosed a copy of the office evaluation for your records. Once again, thank you for allowing me to participate in the care of this patient. Sincerely, Electronically Signed by: BARB GREEN MD Encounter Reason/Date Followup: Hypothyroidism 02/06/2023 - 08:00AM - [facility] [place] Problems:Reviewed Problems Hypothyroidism - Onset: 11/21/2022 Cobalamin deficiency - Onset: 10/03/2022 Vitamin B12 deficiency (non anemic) - Onset: 10/03/2022 Iron deficiency anemia - Onset: 11/10/2022 Anxiety - Onset: 12/27/2022 Mixed anxiety and depressive disorder - Onset: 01/03/2023 Essential hypertension - Onset: 10/03/2022 Osteoporosis - Onset: 04/18/2019 Lightheadedness - Onset: 11/23/2022 Allergies: Reviewed Allergies NKDA Medications: Reviewed Medications NameDate Source aspirin 81 mg tablet,delayed releaseTake 1 tablet(s) every day by oral route., start started MIGRATION.[id number] BD Insulin Syringe 1 mL 25 x 1 U UTD11/21/18 filled MIGRATION.[id number] BD Luer-Fox Syringe 3 mL 25 gauge x 1 09/02/22 filled MIGRATION.[id number] busPIRone 5 mg tabletTAKE 1 TABLET BY MOUTH TWICE DAILY LOYAYG01/02/23 filled surescripts cyanocobalamin (vit B-12) 1,000 mcg/mL injection solutionINJECT 1 ML IN TO THE SKIN EVERY 2 WEEKS12/20/22 filled surescripts escitalopram 5 mg tabletTAKE 1 TABLET BY MOUTH EVERY DAY WITH FOOD FOR 2 WEEKS. INCREASE TO 2 BY MOUTH EVERY DAY WITH FOOD01/03/23 filled surescripts insulin syringe U-100 with needle 1 mL 31 gauge x 5/16 USE TO INJECT B12 ONCE WEEKLY FOR 90 DAYS.12/20/22 filled surescripts Tirosint 100 mcg capsuleTake 1 capsule(s) every day by oral route in the morning for 90 days.02/06/23 prescribed Barb Green MD triamcinolone acetonide 0.5 % topical creamAPPLY THIN LAYER TOPICALLY TO THE AFFECTED AREA TWICE DAILY11/24/22 filled surescripts Supplements with chiropractor (Dr. Young), Family History:Reviewed Family History Mother - Hypothyroidism Sister: thyroid issues Social History:Reviewed Social History Substance UseDo you or have you ever smoked tobacco?: Former smokerWhen did you quit smoking?: 16+ years since last cigaretteAt what age did you start smoking tobacco?: 22Do you or have you ever used any other forms of tobacco or nicotine?: NoWhat is your level of alcohol consumption?: ModerateDo you use any illicit or recreational drugs?: NoWhat is your level of caffeine consumption?: ModerateDiet and ExerciseWhat type of diet are you following?: Regular (Notes: watches sugar, gluten intake)Do you have any dietary restrictions?: NoWhat is your exercise level?: Occasional (Notes: twice a week)Education and 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 last seen in 12/18 at that time we continued tirosint 100 mcg daily She is still on therapy. She feels much better on the tirosint and off the armour. She has less anxiety and palpitations. She has a very clean diet-she eats a lot of fruits / veggies and protein. She has some raw honey and feels her focus is better. labs from 01/26/23:acth 18 pg/mlcortisol 23.9 ug/dLFT3 of 2.3 pg/mLFT3 of 2.5 pg/mlB12/folate high normal rangeTSH of 2.11 uIU/mLFT4 of 1.4 ng/dLTPO 45 IU/mlglucose 84 mg/dLCr normalLFT normalReview of Systems:ROS as noted in the HPIPhysical ExamConstitutional:General Appearance: healthy-appearing, well-nourished, well-developed, not anxious/nervous, and no sweating. Level of Distress: no acute distress. Eyes:Lids and Conjunctivae: no discharge, pallor, lid lag, or periorbital edema and non-injected. Neck:Neck: supple, trachea midline, no masses, and full range of motion. Thyroid: no enlargement or nodules and non-tender. Neck vessels: no carotid bruits or thyroid bruits. Lymph Nodes: no anterior cervical LAD, posterior cervical LAD, submandibular LAD, submental LAD, preauricular LAD, or supraclavicular LAD. Cardiovascular:Apical Impulse: not displaced. Heart Auscultation: normal S1 and S2; no murmurs, rubs, or gallops; and regular rate and rhythm. Lungs:Auscultation: no wheezing, rales/crackles, or rhonchi and breath sounds normal, good air movement, and clear to auscultation. Psychiatric:Mental Status: normal mood and affect, no diffuse anxiety or paranoid ideations, and active and alert.Procedure DocumentationNone recordedAssessment/Plan1. Hypothyroidism-Patient FT4 now in ideal range- off armour thyroid on tirosint- she has better focus and better mentation. Levels in ideal range- continue on tirosint 100 mcg daily. She was reminded to take her tirosint on empty stomach with glass of water and wait one hour to eat or have her coffee in morning and up to 4 hours if ever taking any heartburn or reflux medications to help optimize absorption. Discussed paleo like diet with restriction of GMOs to help with energy and to optimize absorption of vitamins and minerals and reduce inflammation.E03.9: Hypothyroidism, unspecified T3, FREE T4, FREE TSH COMPREHENSIVE METABOLIC PANEL THYROID PEROXIDASE ANTIBODIES CBC (INCLUDES DIFF/PLT) Tirosint 100 mcg capsule - Take 1 capsule(s) every day by oral route in the morning for 90 days. Qty: (90) capsule Refills: 1 ZOEY: Y Pharmacy: [facility] 2. Vitamin B12 deficiency (non anemic)-Continue on B12 injections but recommended she reduce frequency to every other week to maintain levels and help with energy. Spent up to 25 minutes preparing to see the patient (eg, review of tests), obtaining and/or reviewing separately obtained history, performing a medically appropriate examination and evaluation, counseling and educating the patient, ordering medications, tests, along with documenting clinical information in the electronic health record, independently interpreting results and communicating results to the patient and . RTC in 3-4 months. Patient was provided a handwritten lab order which contains our fax number. If she chooses to go outside of the [facility] system to obtain labwork she was advised to provide our fax number and my information to the lab she will be obtaining labwork from in order to have her labs properly forwarded over for me to review so there is no loss of follow up due to use of outside network. She was also advised to contact our clinic informing us that she has completed her labwork so we are aware we will need to reach out to the appropriate laboratory to request her results be forwarded to us so I might have the ability to review and make further medical decision making in her case. She voiced understanding.E53.8: Deficiency of other specified B group vitamins VITAMIN B12/FOLATE, SERUM PANEL Return to Office Cara Jackman MD for Follow Up 15 at [facility] on 02/14/2023 at 04:00 PM Barb Green MD for Follow Up 15 at [facility] on 05/22/2023 at 09:15 AM Heriberto Lima RN [facility], [facility] [employer] [facility] 02/06/2023 17:46:04 Consult Note : [facility] [employer] [facility] [address], [place] [address]LKPTF, Jackie A (Legal name: Katie Del Toro) (id #[id number], : 1960) Documents sent via fax will include the following message: This fax may contain sensitive and confidential personal health information that is being sent for the sole use of the intended recipient. Unintended recipients are directed to securely destroy any materials received. You are hereby notified that the unauthorized disclosure or other unlawful use of this fax or any personal health information is prohibited. To the extent patient information contained in this fax is subject to 42 CFR Part 2, this regulation prohibits unauthorized disclosure of these records. If you received this fax in error, please visit [email or web address] to notify the sender and confirm that the information will be destroyed. If you do not have internet access, please call to notify the sender and confirm that the information will be destroyed. Thank you for your attention and cooperation. [ID:[id number]][facility] [employer] [address] [place] [address] , Date: 05/09/2023RE: Katie Del Toro, : 1960, PT ID #[id number] L Kalaher MD, I would like to thank you for referring Katie Del Toro to our practice for consultation and evaluation of FU ON LABS , on 05/09/2023. I have enclosed a copy of the office evaluation for your records. Once again, thank you for allowing me to participate in the care of this patient. Sincerely, Electronically Signed by: BARB GREEN MD Encounter Reason/Date FU ON LABS 05/09/2023 - 08:00AM - [facility] [place] Problems:Reviewed Problems Hypothyroidism - Onset: 11/21/2022 Cobalamin deficiency - Onset: 10/03/2022 Vitamin B12 deficiency (non anemic) - Onset: 10/03/2022 Iron deficiency anemia - Onset: 11/10/2022 Anxiety - Onset: 12/27/2022 Mixed anxiety and depressive disorder - Onset: 01/03/2023 Bilateral tinnitus - Onset: 02/24/2023 Essential hypertension - Onset: 10/03/2022 Osteoporosis - Onset: 04/18/2019 Lightheadedness - Onset: 11/23/2022 Vertigo - Onset: 02/14/2023 Allergies: Reviewed Allergies NKDA Medications: Reviewed Medications NameDate Source aspirin 81 mg tablet,delayed releaseTake 1 tablet(s) every day by oral route., start started MIGRATION.[id number] BD Insulin Syringe 1 mL 25 x 1 U UTD11/21/18 filled MIGRATION.[id number] BD Luer-Fox Syringe 3 mL 25 gauge x 1 09/02/22 filled MIGRATION.[id number] busPIRone 5 mg tabletTAKE 1 TABLET BY MOUTH TWICE DAILY OBBOXV43/02/23 filled surescripts cyanocobalamin (vit B-12) 1,000 mcg/mL injection solution1 ml sc q every 2 weeks05/09/23 prescribed Barb Green MD insulin syringe U-100 with needle 1 mL 31 gauge x 5/16 USE TO INJECT B12 ONCE WEEKLY FOR 90 DAYS.12/20/22 filled surescripts Tirosint 100 mcg capsuleTake 1 capsule(s) every day by oral route in the morning for 90 days.05/09/23 prescribed Barb Green MD triamcinolone acetonide 0.5 % topical creamAPPLY THIN LAYER TOPICALLY TO THE AFFECTED AREA TWICE DAILY11/24/22 filled surescripts Supplements with chiropractor (Dr. Young), Family History:Family History not reviewed (last reviewed 02/14/2023) Mother - Hypothyroidism Sister: thyroid issues Social History:Social History not reviewed (last reviewed 02/14/2023) Substance UseDo you or have you ever smoked tobacco?: Former smokerWhen did you quit smoking?: 16+ years since last cigaretteAt what age did you start smoking tobacco?: 22Do you or have you ever used any other forms of tobacco or nicotine?: NoWhat is your level of alcohol consumption?: ModerateDo you use any illicit or recreational drugs?: NoWhat is your level of caffeine consumption?: ModerateEducation and 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 type of 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 are you following?: Regular (Notes: watches sugar, gluten intake)Do you have any dietary restrictions?: NoWhat is your exercise level?: Occasional (Notes: twice a week)Marriage and SexualityWhat is your relationship status?: MarriedGender Identity and LGBTQ IdentityGender identity: Identifies as FemaleAssigned sex at : FemalePronouns: she/herFirst name used: Abhilashexual orientation: Straight or heterosexualSurgical HistorySurgical History not reviewed (last reviewed 01/03/2023) None Additional HistoryNone recordedHistory of Present Illness:63 yo female comes in for follow up in management of hypothyroidism and B12 def. last seen in January at that time we continued tirosint 100 mcg daily and dropped B12 injections to every 2 weeks. She was on biotin and stopped taking the biotin seven days prior to getting her bloodwork. She has gained 4 pounds since her last visit. She has since stopped taking the armour in the afternoon so did not reduce her tirosint to 88 mcg daily. She stopped taking the armour in late March. labs from 04/25/23:TSH of 0.25 uIU/mlFT4 of 1.5 ng/dLFT3 of 2.7 pg/MLB12/folate normal/highTPO 77 IU/mlH/H normalglucose 85 mg/dLCr normalLFT normalReview of Systems:ROS as noted in the HPIPhysical ExamConstitutional:General Appearance: healthy-appearing, well-nourished, well-developed, not anxious/nervous, and no sweating. Level of Distress: no acute distress. Eyes:Lids and Conjunctivae: no discharge, pallor, lid lag, or periorbital edema and non-injected. Neck:Neck: supple, trachea midline, no masses, and full range of motion. Thyroid: no enlargement or nodules and non-tender. Neck vessels: no carotid bruits or thyroid bruits. Lymph Nodes: no anterior cervical LAD, posterior cervical LAD, submandibular LAD, submental LAD, preauricular LAD, or supraclavicular LAD. Cardiovascular:Apical Impulse: not displaced. Heart Auscultation: normal S1 and S2; no murmurs, rubs, or gallops; and regular rate and rhythm. Lungs:Auscultation: no wheezing, rales/crackles, or rhonchi and breath sounds normal, good air movement, and clear to auscultation. Psychiatric:Mental Status: normal mood and affect, no diffuse anxiety or paranoid ideations, and active and alert.Procedure DocumentationNone recordedAssessment/Plan1. Hypothyroidism-Patient recently stopped armour thyroid and she is feeling better overall- will then continue on higher dose tirosint 100 mg daily as armour has up to 30% T4 hormone so this should balance her levels better. She was provided AIP diet and encouraged to restrict refined sugars and processed foods. She was reminded to take her tirosint on empty stomach with glass of water and wait one hour to eat or have her coffee in morning and up to 4 hours if ever taking any heartburn or reflux medications to help optimize absorption. Discussed paleo like diet with restriction of GMOs to help with energy and to optimize absorption of vitamins and minerals and reduce inflammation.E03.9: Hypothyroidism, unspecified Tirosint 100 mcg capsule - Take 1 capsule(s) every day by oral route in the morning for 90 days. Qty: (90) capsule Refills: 3 ZOEY: Y Pharmacy: [facility] 2. Vitamin B12 deficiency (non anemic)-Continue on B12 injections but recommended she continue with reduced frequency to every other week to maintain levels and help with energy. Spent up to 25 minutes preparing to see the patient (eg, review of tests), obtaining and/or reviewing separately obtained history, performing a medically appropriate examination and evaluation, counseling and educating the patient, ordering medications, tests, along with documenting clinical information in the electronic health record, independently interpreting results and communicating results to the patient. Patient can be followed by PCP - she/he is aware of my resignation and last day of June 09. If needed his/her PCP can refer patient to another touch up painter in the area. All questions /concerns answered and refills necessary at visit today.E53.8: Deficiency of other specified B group vitamins cyanocobalamin (vit B-12) 1,000 mcg/mL injection solution - 1 ml sc q every 2 weeks Qty: (6) mL Refills: 3 Pharmacy: [facility] #[id number] INSULIN SYRINGE U-100 WITH NEEDLE 1 ML 31 GAUGE X 5/16 - inject B12 SQ once weekly x 90 Qty: 13 Units Refills: 3 Supplier: [facility] #[id number] Return to Office Cara Jackman MD for Follow Up 15 at [facility] on 08/16/2023 at 03:30 PM Heriberto Lima RN null, [employer] 05/09/2023 10:19:33 Procedures Surgical History Date Name Laterality Status Provider Name and Address Organization Details Recorded Time 9 Most Recent Bone Density completed Danette Velazquez LPN [employer] 03/08/2023 10:08:05 Imaging Results Imaging Date Name Status LastModified by Manishaiz [facility] Details LastModified Time 04/12/2019 DEXA [place] [id number] [facility] [address], [place], [address], 01/05/2024 10:53:30 06/13/2023 MAMMO, screening, digital, bilateral completed [address], [place], [address], 01/05/2024 10:53:31 06/13/2023 MAMMO, screening, digital, bilateral completed [address], [place], [address], 01/05/2024 10:53:31 06/13/2023 MAMMO, screening, digital, bilateral completed [email or web address] [facility] [address], [place], [address], 01/05/2024 10:53:32 Procedure Notes None recorded. Medical Equipment None Reported. Allergies No known drug allergies Medications Name Sig Start Date Stop Date Status Note LastModified by Organization Details LastModified Time Prescripti on - Renewal active Not Available Not Available Not Available buspirone 5 mg tablet TAKE 1 TABLET BY MOUTH TWICE DAILY NEEDED active Not Available Not Available No t Available Hatch Thyroid 90 mg tablet TAKE 1 TABLET BY MOUTH EVERY DAY IN THE MORNING 02/06 completed Not Available Not Available Not Available doxycyclin e hyclate 100 mg capsule TAKE 1 CAPSULE BY MOUTH TWICE DAILY FOR 10 DAYS 06/28 completed Not Available Not Available Not Available BD Insulin Syringe 1 mL 25 x 1 U UTD active Not Available Not Available N ot Available triamcinol one acetonide 0.5 % topical cream APPLY THIN LAYER TOPICALL Y TO THE AFFECTED AREA TWICE DAILY active Not Available Not Available No t Available Hatch Thyroid 180 mg tablet TAKE 1 TABLET BY MOUTH EVERY DAY ON AN EMPTY STOMACH 09/01 completed 1/2 pill 5 days a week and whole pill other 2 days ( sat & sun) Not Available Not Available Not Available Hatch Thyroid 120 mg tablet TAKE 1 TABLET BY MOUTH EVERY DAY ON AN EMPTY STOMACH 06/28 completed Not Available Not Available Not Available aspirin 81 mg tablet,del ayed release Take 1 tablet every day by oral route. 2021 active Not Available Not Available Not Avai lable Hatch Thyroid 15 mg tablet Take 1 tablet every day by oral route at noon for 90 days. 05/09 completed NO LONGER TAKING Not Available Not Available Not Available propranolo l 10 mg tablet active Not Available Not Available Not Available lorazepam 0.5 mg tablet Take 1 tablet twice a day by oral route as needed. 06/28 completed Not Available Not Available Not Available cyanocobal bowie (vit B-12) 1,000 mcg/mL injection solution INJECT 1 ML UNDER THE SKIN EVERY 2 WEEKS active Not Available Not Available No t Available BD Luer-Fox Syringe 3 mL 25 gauge x 1 active Not Available Not Available N ot Available buspirone 7.5 mg tablet 1-2 tabs po bid prn stress active Not Available Not Available No t Available insulin syringe U-100 with needle 1 mL 31 gauge x 01/10 USE ONCE WEEKLY active Not Available Not Available No t Available Hatch Thyroid 30 mg tablet active Not Available Not Available No t Available escitalopr am 5 mg tablet 2 po qday with food 02/14 completed Not Available Not Available Not Available hydrochlor othiazide 12.5 mg tablet TAKE 1 TABLET BY MOUTH EVERY DAY IN THE MORNING 06/28 completed Not Available Not Available Not Available Tirosint 100 mcg capsule active Not Available Not Available Not Available Tirosint 88 mcg capsule TAKE ONE Capsule BY MOUTH EVERY MORNING 05/09 completed Not Available Not Available Not Available Vitals Date Recorded Body height Body mass index (BMI) Body weight Body temperature Respiratory rate Heart rate Systolic blood pressure Diastolic blood pressure Provider Name and Address Organization Details Last Updated DateTime 3 170.18 cm 25.9 kg/m2 47678.9 g 97.2 [degF] 18 /min 113 /min 154 mm[Hg] 93 mm[Hg] JUDE Mancuso [facility] [employer] 3 11:46:53 Date Recorded Body height Body mass index (BMI) Body weight Body temperature Heart rate Oxygen saturation Oxygen saturation in Arterial blood by Pulse oximetry Systolic blood pressure Diastolic blood pressure Provider Name and Address Organization Details Last Updated DateTime 3 170.18 cm 25.5 kg/m2 78008.5 6 g 98.4 [degF] 97 /min 98 % 98 % 160 mm[Hg] 90 mm[Hg] Heriberto Lima RN [facility] [employer] [facility] 3 16:55:47 Date Recorded Body height Body mass index (BMI) Body weight Heart rate Body temperature Respiratory rate Systolic blood pressure Diastolic blood pressure Provider Name and Address Organization Details Last Updated DateTime 3 170.18 cm 25.8 kg/m2 88369.3 g 85 /min 97.8 [degF] 18 /min 141 mm[Hg] 82 mm[Hg] JUDE Mancuso [facility] [employer] [facility] 3 09:16:02 Date Recorded Body height Body mass index (BMI) Body weight Body temperature Heart rate Oxygen saturation Oxygen saturation in Arterial blood by Pulse oximetry Systolic blood pressure Diastolic blood pressure Provider Name and Address Organization Details Last Updated DateTime 3 170.18 cm 25.2 kg/m2 87282.3 7 g 97.4 [degF] 96 /min 96 % 96 % 160 mm[Hg] 90 mm[Hg] Heriberto Lima RN [facility] [employer] [facility] 3 16:56:44 Date Recorded Body height Body mass index (BMI) Body weight Body temperature Respiratory rate Heart rate Systolic blood pressure Diastolic blood pressure Provider Name and Address Organization Details Last Updated DateTime 3 170.18 cm 25.9 kg/m2 60891.4 6 g 97.9 [degF] 16 /min 107 /min 140 mm[Hg] 84 mm[Hg] Susan Mcgraw RN [facility] [employer] [facility] 3 09:07:44 Social History Question Answer Notes LastModified by Organizat ion Details LastModified Time Tobacco Smoking Status Former Smoker Not Available [facility] 10/26/2022 20:01:43 What Is Your Level Of Alcohol Consumption? Moderate [id number] Information not available 10/26/2022 What Is Your Level Of Caffeine Consumption? Moderate [id number] Information not available 10/26/2022 What Type Of Diet Are You Following? 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 18+yearssinc elastcigaret te [id number] Information not available 10/26/2022 What Is Your Relationship Status? [id number] Information not available 10/26/2022 At What Age Did You Start Smoking Tobacco? 22 [id number] Information not available 10/26/2022 Do You Use Any Illicit Or Recreational Drugs? No [email or web address] Information not available 01/03/2023 Are You Currently In School? No [id number] Information not available 10/26/2022 Do You Have Any Dietary Restrictions? No [id number] Information not available 10/26/2022 Do You Or Have You Ever Used Any Other Forms Of Tobacco Or Nicotine? No [email or web address] Information not available 01/03/2023 Sex: Female Functional Status Question Answer Note LastModified by Organizat ion Details LastModified Time What is your exercise level? Occasional twice a week [id number] Information not available 10/26/2022 Mental Status None recorded. Family History Relationship Description Onset Age of this Age Resolved Age Notes LastModified by Organization Details LastModified Time Mother Hypothyroidi [id number] Not available 10/26/2022 20:01:49 Notes:Sister: thyroid issues Medical History Condition Response HEART ARRHYTHMIA INSOMNIA Y EYE PROBLEMS Y HYPOTHYROIDISM Y DEPRESSION (INCLUDING POST ) Gynecological History Statement/Question Response Most Recent Bone Density 04/12/2019 Obstetrics History GPAL:G 0 P 0 0 0 0 Past Encounters Encounter ID Performer Location Encounter Start Date Encounter Closed Date Diagnosis/Indication Diagnosis SNOMED-CT Code Diagnosis ICD10 Code Diagnosis Note [id number] [facility] [address] [place] [address] 06/28/2022 00:00:00 07/27/2022 18:01:32 [id number] [facility] [place] [address] [facility] [address] [place] [address] 09/01/2022 00:00:00 09/01/2022 12:24:25 [id number] Cara Jackman MD [facility] [address] [place] [address] 11/23/2022 12:23:29 11/23/2022 13:09:56 Renewal of prescription 612014490 Z76.0 Lightheadedness 35039865 8 R42 ? anxietypt will keep diary of episodes that include timing, symptoms and any preceding eventswill review in 4 weeks to discuss whether further evaluation is needed which might include event monitor, blood pressure monitoring , checking blood glucoseok to try buspirone 5 mg up to 3 tabs bid prnf/u in 4 weeks or sooner if needed Cobalamin deficiency 190 031130 E53.8 d/c nasal spray from Dr. Blake sed b12 to one injection per 4 weeks and recheck labs in 3 months [id number] Barb Green MD [facility] [address] [place] [address] 12/20/2022 11:27:33 12/20/2022 12:32:37 Hypothyroidism 54289057 E03.9 Patient is currently on natural thyroid hormone. Discussed and explained to patient that natural thyroid is generally 70% T3 and <30% T4 hormone and this is why it is generally dosed twice daily due to uptake and utilizatio n of active thyroid hormone which further leads to suppressio n of TSH. She has been on her current dose of armour since her initial visit in August. Discussed with patient that natural thyroid hormone is not controlled and generally we cannot know for sure how much thyroid hormone she is getting per batch of medication she receives so generally the [facility] does not support the use of natural supplement s for this reason. However she is willing to obtain labwork and titrate her medication to safe range therefore due to her level of compliance and understand ing I will work with her to optimize her levels. Discussed that there is a new formulatio n of T4 called tirosint that has no fillers and this may be a more optimal formulatio n to trial. Will transition to tirosint 100 mcg daily as this contains no fillers and generally better tolerated on the stomach. She was reminded to take her tirosint on empty stomach with glass of water and wait one hour to eat or have her coffee in morning and up to 4 hours if ever taking any heartburn or reflux medication s to help optimize absorption . Discussed paleo like diet with restrictio n of GMOs to help with energy and to optimize absorption of vitamins and minerals and reduce inflammati on. Repeat thyroid panel in 4 weeks to assess response to therapy. Vitamin B1 2 deficiency (non anemic) 61890167 E53.8 Continue on B12 injections but recommende d she reduce frequency to every other week to maintain levels and help with energy. Spent up to 28 minutes preparing to see the patient (eg, review of tests), obtaining and/or reviewing separately obtained history, performing a medically appropriat e examinatio n and evaluation , counseling and educating the patient, ordering medication s, tests, along with documentin g clinical informatio n in the electronic health record, independen allyy interpreti ng results and communicat ing results to the patient and . Patient was provided a handwritte n lab order which contains our fax number. If she chooses to go outside of the [facility] system to obtain labwork she was advised to provide our fax number and my informatio n to the lab she will be obtaining labwork from in order to have her labs properly forwarded over for me to review so there is no loss of follow up due to use of outside network. She was also advised to contact our clinic informing us that she has completed her labwork so we are aware we will need to reach out to the appropriat e laboratory to request her results be forwarded to us so I might have the ability to review and make further medical decision making in her case. She voiced understand ing. [id number] Cara Jackman MD [facility] [address] [place] [address] 01/03/2023 16:43:46 01/03/2023 17:50:31 Mixed anxiety and depressive disorder 013308639 F41.8 discussed at lengthbegi n escitalopr am 5 mg daily iw food, the increase to 10 mg after 2 weeksRevie wed potential med s/e, d/c and be seen if any si/hif/u in 4 weeks or sooner if needed [id number] Barb Green MD [facility] [place] [address] [place] [address] 02/06/2023 09:05:41 02/06/2023 09:44:43 Hypothyroidism 59634471 E03.9 Patient FT4 now in ideal range- off armour thyroid on tirosint- she has better focus and better mentation. Levels in ideal range- continue on tirosint 100 mcg daily. She was reminded to take her tirosint on empty stomach with glass of water and wait one hour to eat or have her coffee in morning and up to 4 hours if ever taking any heartburn or reflux medication s to help optimize absorption . Discussed paleo like diet with restrictio n of GMOs to help with energy and to optimize absorption of vitamins and minerals and reduce inflammati on. Vitamin B1 2 deficiency (non anemic) 49592755 E53.8 Continue on B12 injections but recommende d she reduce frequency to every other week to maintain levels and help with energy. Spent up to 25 minutes preparing to see the patient (eg, review of tests), obtaining and/or reviewing separately obtained history, performing a medically appropriat e examinatio n and evaluation , counseling and educating the patient, ordering medication s, tests, along with documentin g clinical informatio n in the electronic health record, independen tly interpreti ng results and communicat ing results to the patient and . RTC in 3-4 months. Patient was provided a handwritte n lab order which contains our fax number. If she chooses to go outside of the [facility] system to obtain labwork she was advised to provide our fax number and my informatio n to the lab she will be obtaining labwork from in order to have her labs properly forwarded over for me to review so there is no loss of follow up due to use of outside network. She was also advised to contact our clinic informing us that she has completed her labwork so we are aware we will need to reach out to the appropriat e laboratory to request her results be forwarded to us so I might have the ability to review and make further medical decision making in her case. She voiced understand ing. [id number] Cara Jackman MD [facility] Primary [facility] [address] [facility] [address] [place] [address] 02/14/2023 16:49:54 02/14/2023 17:24:26 Screening mammography 82125859 Z12.31 Bilateral tinnitus 62612 13045 102 H93.13 has seen ENT, can pursue VNG but does not have true vertigof/u ENT prn [id number] Barb Green MD [facility] [address] [place] [address] 05/09/2023 09:01:08 05/09/2023 10:28:54 Hypothyroidism 70664284 E03.9 Patient recently stopped armour thyroid and she is feeling better overall- will then continue on higher dose tirosint 100 mg daily as armour has up to 30% T4 hormone so this should balance her levels better. She was provided AIP diet and encouraged to restrict refined sugars and processed foods. She was reminded to take her tirosint on empty stomach with glass of water and wait one hour to eat or have her coffee in morning and up to 4 hours if ever taking any heartburn or reflux medication s to help optimize absorption . Discussed paleo like diet with restrictio n of GMOs to help with energy and to optimize absorption of vitamins and minerals and reduce inflammati on. Vitamin B1 2 deficiency (non anemic) 58363178 E53.8 Continue on B12 injections but recommende d she continue with reduced frequency to every other week to maintain levels and help with energy. Spent up to 25 minutes preparing to see the patient (eg, review of tests), obtaining and/or reviewing separately obtained history, performing a medically appropriat e examinatio n and evaluation , counseling and educating the patient, ordering medication s, tests, along with documentin g clinical informatio n in the electronic health record, independen tly interpreti ng results and communicat ing results to the patient. Patient can be followed by PCP - she/he is aware of my resignatio n and last day of June 09. If needed his/her PCP can refer patient to another endocrinol ogist in the area. All questions /concerns answered and refills necessary at visit today. Health Concerns Section Related Observation LastModified by Organization Detai ls LastModified Time None Recorded Concern Status LastModified by Organization Details LastModified Time None Recorded Advance Directives Directive None Recorded Payers Encounter Date Sequence Insurance Name Policy Number Policy Damon Covered Member ID Damon Member ID Guarantor Name 12/20/2022 1 [employer] (EPO) [id number] Katie Del Toro [id number] Katie Del Toro 01/03/2023 1 [employer] - EMPLOYEE BENEFIT MANAGEMENT [facility] [employer] (PPO) [id number] Krishan Del Toro [id number] Katie Del Toro 02/06/2023 1 [employer] (EPO) [id number] Katie Del Toro [id number] Katie Del Toro 02/14/2023 1 [employer] [address] [facility] [id number] Katie Del Toro [id number] Katie Del Toro 05/09/2023 1 [employer] [facility] [address] [facility] [id number] Katie Del Toro [id number] Katie Del Toro Notes Date Note Type Note Provider Name and Address Organization Details Recorded Time 12/20/2022 text/html 62 yo female com es in for follow up in management of hypothyroidism, B12 def. last /initial visit in August at that time we recommended patient split her armour thyroid at 90 mg in the morning and 30 mg around 1-2 pm in afternoon. we started B12 injections / weekly. She is only taking 90 mg in the morning and 30 mg in the afternoon- she is not taking the 45 mg She was on the levothyroxine in the past and wanted to go natural so hasn't been back on T4 therapy. She is taking several natural supplements from her holistic doctor that is bovine in content. She has fatigue, hair thinning, weight gain and doesn't feel well on her current regimen. She does struggle with insomnia and anxiety. Per patient her blood pressure and heart rate are normal at home and she gets white coat syndrome. She struggles withlabs from 11/17:B12 1421 pg/mLH/H normalPlt normalferritin / folate normaliron sat 32%TSH of 0.08 uIU/mlFT4 of 1.1 ng/dLFT3 of 2.9 pg/MLTPO 40 IU/mliodine 58 ng/mLglucose 90 mg/dLCr normalmag 2.1 ng/MLLFT normal Barb Green MD [address], [place], [address], [employer] 12/20/2022 13:59:28 01/03/2023 text/html Home blood press ures running 110-130/62-78 was a bit elevated when she changed from armour thyroid to tirosint, feels less anxious over the past 2 weeks, will get labs in 2 more weeks Cara Jackman MD [address], [place], [address], [employer] 01/25/2023 13:22:39 02/06/2023 text/html 62 yo female com es in for follow up in management of hypothyroidism and B12 def. last seen in 12/18 at that time we continued tirosint 100 mcg daily She is still on therapy. She feels much better on the tirosint and off the armour. She has less anxiety and palpitations. She has a very clean diet-she eats a lot of fruits / veggies and protein. She has some raw honey and feels her focus is better. labs from 01/26/23:acth 18 pg/mlcortisol 23.9 ug/dLFT3 of 2.3 pg/mLFT3 of 2.5 pg/mlB12/folate high normal rangeTSH of 2.11 uIU/mLFT4 of 1.4 ng/dLTPO 45 IU/mlglucose 84 mg/dLCr normalLFT normal Barb Green MD [address], [place], [address], [employer] 02/06/2023 12:24:17 02/14/2023 text/html Home blood press ures running 110-130/62-78 was a bit elevated when she changed from armour thyroid to tirosint, feels less anxious over the past 2 weeks, will get labs in 2 more weeks update 02/14/23: Thinks her tinnitus is getting worse, saw ENT who did not offer many options home blood pressures are normal she did not start medication for anxiety and does not want to Cara Jackman MD [address], [place], [address], [employer] 02/24/2023 09:57:59 05/09/2023 text/html 63 yo female com es in for follow up in management of hypothyroidism and B12 def. last seen in January at that time we continued tirosint 100 mcg daily and dropped B12 injections to every 2 weeks. She was on biotin and stopped taking the biotin seven days prior to getting her bloodwork. She has gained 4 pounds since her last visit. She has since stopped taking the armour in the afternoon so did not reduce her tirosint to 88 mcg daily. She stopped taking the armour in late March. labs from 04/25/23:TSH of 0.25 uIU/mlFT4 of 1.5 ng/dLFT3 of 2.7 pg/MLB12/folate normal/highTPO 77 IU/mlH/H normalglucose 85 mg/dLCr normalLFT normal Barb Green MD [address] [facility] [facility] [address], [place], [address], [facility] 05/09/2023 10:11:42 OBGyn Episode No OBEpisode recorded.
--- OUTSIDE RECORDS SUMMARY | 2024-12-11 23:47 | XMS_ITS | Encounter Summary ---
Author Organization [facility] Address [address] [place] [address] Care Team Providers Care Acetylene Torch Burner Name Role Phone Sue Thompson Primary Care Provider Encounter Details Date Type Department Care Team (Latest Contact Info) Description 12/11/2024 Travel Social History Tobacco Use Types Packs/Day Years Used Date Smoking Tobacco: Former Cigarettes 2 1976 Smokeless Tobacco: Never Alcohol Use Standard [...] Description 01/15/2025 8:45 AM CDT Office Visit [facility] [address] [phone] Romain Schumacher MD [address] [address] documented as of this encounter Visit Diagnoses Not on filedocumented in this encounter Care Teams Acetylene Torch Burner Relationship Specialty Start Date End Date Sue Thompson PA [address] [place] [phone] PCP - General PHYSICIAN GAS MAIN FITTER 08/20/24 documented as of this encounter
--- OUTSIDE RECORDS SUMMARY | 2024-12-11 23:47 | XMS_ITS ---
Author Organization [facility] Address [address] [address] Care Team Providers Care Bus Mechanic Name Role Phone Minnie Bloom Primary Care Provider [phone] REASON FOR VISIT quest orders Encounters Encounter Location Date Provider Diagnosis [facility] [address] [place] [address] 08/02/2024 Minnie Bloom Plan Of Treatment No Information Progress Notes * Patsy DEL TOROOB:[birth year] (64 yo F)Acc No.[id number]:08/02/2024 Patient: Karli HAWK Katie :1960 A ge:64 Y S ex:Female Phone: Address:[address] [place] [id number] * true * Date: Generated for Printi ng/Fatonieg/eTransmitting on: 0 12/11/2024 09:31 AM CDT
--- OUTSIDE RECORDS SUMMARY | 2024-12-11 23:47 | XMS_ITS | Encounter Summary ---
Author Organization [facility] Address [address] [place] [address] Phone Care Team Providers Care Reports Analysis Manager Name Role Phone Melissa Zuniga Primary Care Provider [phone] Andriy Burgos MD Unavailable Melani Mclean MD Unavailable [phone] Rajni Jimenez MD Unavailable [phone] Kevin Ryder MD PhD Unavailable Sue Thompson Primary Care Pr ovider Encounter Details Date Type Department Care Team (Latest Contact Info) Description 10/18/2023 Orders Only [facility] Scanning, Provider Social History Tobacco Use Types Packs/Day Years Used Date Smoking Tobacco: Former Cigarettes Q uit: 2004 Smokeless Tobacco: Never Alcohol Use Standard Drinks/Week Comments Yes 0 (1 standard drink = 0.6 oz pur e alcohol) AUDIT-C Answer Date Recorded Q1: How often do you have a drink containing alc ohol? Monthly or less 09/25/2023 Q2: How many drinks containi ng alcohol do you have on a typical day when you are drinking? 1 or 2 09/25/2023 Q3: How often do you have si x or more drinks on one occasion? Never 09/25/2023 Personal Safety Answer Date Recorded Have you ever been in or are you currently in a harmful physical or emotional relationship or is someone making you feel afraid or unsafe? 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 Gender Identity Not on file Sexual Orientation Not on file documented as of this encounter Plan of Treatment Not on file documented as of this encounter Procedures Procedure Name Priority Date/Time Associated Diagnosis Comments SCAN - PATHOLOGY 10/18/2023 documented in this encounter Results * SCAN - PATHOLOGY (10/18/2023) Provider Scanning Final Result documented in this encounter Visit Diagnoses Not on filedocumented in this encounter Care Teams Reports Analysis Manager Relationship Specialty Start Date End Date Melissa Zuniga PA [address] [place] [address] PCP - General Family Medicine 07/19/23 11/12/24 Sue Thompson PA [address] [place], [place] [id number] PCP - General Physician Head Rose Grower 11/13/24 Andriy Burgos MD [address] [place] [address] 11/05/21 Melani Mclean MD [address] [address] Surgeon Surgical Oncology 09/25/23 Rajni Jimenez MD [facility] [address] [address] Radiation Oncologist Radiation Oncology 10/31/23 Kevin Ryder MD PhD [address] [place] [address] Medical Oncologist/Food Runner Medical Oncology 11/01/23 documented as of this encounter
--- OUTSIDE RECORDS SUMMARY | 2024-12-11 23:47 | XMS_ITS | Encounter Summary ---
Author Organization [facility] Address [address] [place] [address] Care Team Providers Care Insulation Worker Furnace Installer Name Role Phone Sue Thompson DEMARIO Primary Care Provider [phone] Encounter Details Date Type Department Care Team (Late Contact Info) Description 12/11/2024 MyChart Message Enc [facility] [address] [place] [phone] Romain Schumacher MD [facility] [address] [place], [place] [id number] follow up Social History Tobacco Use Types Packs/Day Years [...] Description 01/15/2025 8:45 AM CDT Office Visit [facility] [address] [place] [phone] Romain Schumacher MD [facility]. [address] [place], [place] [address] documented as of this encounter Visit Diagnoses Not on filedocumented in this encounter Care Teams Insulation Worker Furnace Installer Relationship Specialty Start Date End Date Sue Thompson PA [address] [place] [phone] PCP - General PHYSICIAN ROLL FORMING MACHINE OPERATOR 08/20/24 documented as of this encounter
--- OUTSIDE RECORDS SUMMARY | 2024-12-11 23:47 | XMS_ITS ---
Author Organization [facility] [address] Address [address] [place] [address] Care Team Providers Care Data Entry Email Processor Name Role Phone Andriy Burgos MD Unavailable [phone] Melani Mclean MD Unavailable [phone] Rajni Jimenez MD Unavailable [phone] Kevin Ryder MD PhD Unavailable Sue Thompson Primary Care Pr ovider Active Problems Problem Noted Date Diagnosed Date [...] 11/25/2021 Hypothyroidism 01/11/2014 Overview (12/02/2016): HYPOTHYROIDISM NOS Current Treatment and Therapy Plans No current plan information found. Past Treatment and Therapy Plans No past plan information found. Radiation Treatments * Course C1 R APBI 202311/15/2023 - 11/24/2023 Treatment Period Energy Fraction Dose Fractions Total Dose Plans Planned RT APBI 11/15/2023 - 11/24/2023 600 5 / 3,000 Reference Points Delivered R BI 11/15/2023 - 11/24/2023 3,000 Lifetime Dose Tracking * Chemical Lifetime Dose Automatic Entry Manual Entr y DLP 726 mGycm 726 mGycm 0 mGycm
--- OUTSIDE RECORDS SUMMARY | 2024-12-11 23:47 | XMS_ITS | Encounter Summary ---
Author Organization [facility] Address [address] [place] [address] Care Team Providers Care Clinical Nurse Specialist Name Role Phone Melissa Zuniga Primary Care Provider [phone] Andriy Burgos MD Unavailable [phone] Melani Mclean MD Unavailable [phone] Rajni Jimenez MD Unavailable [phone] Kevin Ryder MD PhD Unavailable Sue Thompson Primary Care Pr ovider Encounter Details Date Type Department Care Team (Late st Contact Info) Description 04/17/2024 Documentation [facility] OP Physical Therapy [address] [address] Kaylene Hernandez, PT Social History Tobacco Use Types Packs/Day Years Used Date Smoking Tobacco: Former Cigarettes 0.5 22 S tarted: 1981 Smokeless Tobacco: Never Alcohol Use Standard Drinks/Week [...] on file Legal Sex Female 12:53 AM EQUIPMENT TESTER Gender Identity Not on file Sexual Orientation Not on file documented as of this encounter Plan of Treatment Not on file documented as of this encounter Visit Diagnoses Not on filedocumented in this encounter Care Teams Clinical Nurse Specialist Relationship Specialty Start Date End Date Melissa Zuniga PA [address] [place] [address] PCP - General Family Medicine 07/19/23 11/12/24 Sue Thompson PA [address] [place] [address] PCP - General Physician Guest Associate 11/13/24 Andriy Burgos MD [address] [place] [address] 11/05/21 Melani Mclean MD [address] [address] Surgeon Surgical Oncology 09/25/23 Rajni Jimenez MD [facility] [address] Radiation Oncologist Radiation Oncology 10/31/23 Kevin Ryder MD PhD [address] [place] [address] Medical Oncologist/Cryptographer Medical Oncology 11/01/23 documented as of this encounter
--- OUTSIDE RECORDS SUMMARY | 2024-12-11 23:47 | XMS_ITS | Encounter Summary ---
Author Organization [facility] Address [address] [place] [address] Care Team Providers Care Vpk Teacher Name Role Phone Sue Thompson DEMARIO Primary Care Provider [phone] Encounter Details Date Type Department Care Team (Late st Contact Info) Description 11/14/2024 Abstract [facility], [address] [id number] Hayden Lovelace MA Social History Tobacco Use Types Packs/Day Years [...] Description 01/15/2025 8:45 AM CDT Office Visit [facility] [phone] Romain Schumacher MD [facility]. [address] [address] documented as of this encounter Procedures Procedure Name Priority Date/Time Associated Diagnosis Comments LIPOPROTEIN A Routine 11/13/2024 APOLIPOPROTEIN B Routine 11/13/2024 C-REACTIVE PROTEIN, HIGH SENSI Routine 11/13/2024 documented in this encounter Results * APOLIPOPROTEIN B (11/13/2024) Pathologist [facility] APOLIPOPROTEIN B 102 <90 11/13/2024 us Default History Genericprovider LABORATORY Final Result * LIPOPROTEIN A (11/13/2024) Pathologist [facility] LIPOPROTEIN (A) 72 <75 11/13/2024 us Default History Genericprovider LABORATORY Final Result * C-REACTIVE PROTEIN, HIGH SENSI (11/13/2024) Pathologist [facility] CRP HIGH SENSITIVITY 2.1 <1.0 11/13/2024 us Default History Genericprovider LABORATORY Edited Result - Final documented in this encounter Visit Diagnoses Not on filedocumented in this encounter Care Teams Vpk Teacher Relationship Specialty Start Date End Date Sue Thompson PA [address] [place] [address] PCP - General PHYSICIAN HOSPITALITY ASSOCIATE 08/20/24 documented as of this encounter
--- OUTSIDE RECORDS SUMMARY | 2024-12-11 23:47 | XMS_ITS | Referral Summary ---
Author Organization [facility] [address] [employer] Address [address] [place] [address] Care Team Providers Care Industrial Sewer Name Role Phone Andriy Burgos MD Unavailable [phone] Melani Mclean MD Unavailable [phone] Rajni Jimenez MD Unavailable [phone] Kevin Ryder MD PhD Unavailable Sue Thompson Primary Care Pr ovider Encounters Date Type Department Care Team Description 11/25/2024 Telephone [facility] Surgery [address] [place] [address] [address] [place] [address] Stephanie Sutton RN 11/22/2024 Results Follow-Up [facility] Urology [address] [facility] [address] [place] [address] Melani Mclean MD 11/22/2024 10:11 AM CDT - 11/22/2024 11:59 PM CDT Hospital Encounter [facility]iology [facility] [address] [place] [address] Malignant neoplasm of lower-outer quadrant of right breast of female, estrogen receptor positive (HCC) Discharge Disposition: Discharge to home or self care 11/15/2024 Telephone [facility] Surgery [address] [place] [address] [address] [place] [address] Melani Mclean MD 10/31/2024 4:00 PM GUT DROPPER Office Visit [facility] Medical Office Building 2 Radiation Oncology [facility]8 [place] [address] Sarah Escoto PA Malignant neoplasm of lower-outer quadrant of right breast of female, estrogen receptor positive (HCC) (Primary Dx); Personal history of radiation therapy 10/25/2024 Telephone [facility] Surgery [facility] [address] [place] [address] Melani Mclean MD Med Refill from Last 3 Months Allergies No known active allergies Medications cyanocobalamin [...] from 10/31/2023:Stage IA(pT1c, pN0(sn), cM0, G2, ER+, VA+, HER2-) - Signed by Rajni Jimenez MD on 10/31/2023 Dizziness and giddiness 12/12/2022 Sensorineural hearing loss (SNHL) of both ears 0 11/25/2021 Tinnitus of both ears 11/25/2021 Otosclerosis of left ear 11/25/2021 Hypothyroidism 01/11/2014 Overview (12/02/2016): HYPOTHYROIDISM NOS Social History Tobacco Use Types Packs/Day Years [...] on file Legal Sex Female 12:53 AM GUT DROPPER Gender Identity Not on file Sexual Orientation Not on file Last Filed Vital Signs Vital Sign Reading Time Taken Comments Blood Pressure 149/88 10/31/2024 4:06 PM GUT DROPPER Pulse 96 10/31/2024 4:06 PM GUT DROPPER Temperature 36.6 C (97.8 F) 11/03/2023 2:54 PM GUT DROPPER Respiratory Rate 18 11/03/2023 2:54 PM GUT DROPPER Oxygen Saturation 100% 10/31/2024 4:06 PM GUT DROPPER Inhaled Oxygen Concentration - - Weight 71.7 kg (158 lb) 10/31/2024 4:06 PM GUT DROPPER Height 170.2 cm (5' 7.01 ) 05/24/2024 9:35 AM CD T Body Mass Index 24.74 05/24/2024 9:35 AM CDT Plan of Treatment Not on file Medical Devices Implanted Type Area Tumbler Machine Operator Device Identifier Shelf Expiration Date Model / Serial / Lot [employer] Marker Tissue Needle Delivery Spiral Capped Seed Radiopaque Fibreglass Lay Up Worker Stainless Steel Low Nickel [employer] [id number] - [id number] Implanted:Qty: 1 on 09/14/2023 by Joie Brito MD at [facility] Right: Breast [employer] [id number] 03/27/2027 [id number] Procedures Procedure Name Priority Date/Time Associated Diagnosis [...] Melani Mclean MD IMG MRI PROCEDURES Elsa l Result * Diagnostic Mammogram Bilateral W Andrea [...] Most Recently Relevant to Health Maintenance [facility] Care Teams Industrial Sewer Relationship Specialty Start Date End Date Sue Thompson PA [address] [place], [place] [id number] PCP - General Physician Sueding Machine Tender 11/13/24 Andriy Burgos MD [address] [place] [address] 11/05/21 Melani Mclean MD [address] [address] Surgeon Surgical Oncology 09/25/23 Rajni Jimenez MD [address] [address] Radiation Oncologist Radiation Oncology 10/31/23 Kevin yRder MD PhD [address] [place] [address] Medical Oncologist/Attending Ambulatory Care Medical Oncology 11/01/23
--- OUTSIDE RECORDS SUMMARY | 2024-12-11 23:47 | XMS_ITS ---
Author Organization [employer] [facility] Address [address] [address] Care Team Providers Care Cracker Dough Mixer Name Role Phone Minnie Bloom Primary Care Provider [phone] REASON FOR VISIT heart palpitations amanda Medications Medication SIG (Take, Route, Frequency, Duration) Notes Start Date End Date Status Propranolol HCl 10 MG 1 tablet on an empty stomach Orally every 12 hrs as needed for HR over 90 bpm for 30 days 08/16/2024 Active Tirosint 88 MCG (0.088 MG) TAKE ONE CAPSULE BY MOUTH EVERY DAY for 90 *Please review and pick correct strength-formulatio n from [employer] options. If intended option is not shown, discontinue and re-order from Quick Search* Active Liothyronine Sodium 5 MCG 1 tab(s) orally once a day at noon for 90 days 04/12/2024 Active Problems Problem Type SNOMED Code ICD Code Onset Dates Problem Status W/U Status Risk Notes Problem Obesity (304160206) Obesity, unspecified (E66.9) Active confirmed Vital Signs Blood pressure systolic 128 mm Hg 08/16/20 24 Blood pressure diastolic 68 mm Hg 024 Heart Rate 61 /min 08/16/2024 Respiratory Rate 12 /min 08/16/2024 Height 67 in 08/16/2024 Weight 160 lbs 08/16/2024 BMI 25.06 kg/m2 08/16/2024 Encounters Encounter Location Date Provider Diagnosis [facility] - Minnie Bloom [address] [place] [address] 08/16/2024 Minnie Bloom Obesity, unspecified E66.9 ; Dietary counseling and surveillance Z71.3 ; Hypothyroidism, unspecified E03.9 ; Hyperlipidemia, unspecified E78.5 and Palpitations R00.2 Assessments Encounter Date Diagnosis (ICD Code) Assessment Notes Treatment Notes Treatment Clinical Notes Section Notes 08/16/2024 Obesity, unspecified (ICD-10 - E66.9) 08/16/2024 Dietary counseling and surveillance (ICD-10 - Z71.3) 08/16/2024 Hypothyroidism, unspecified (ICD-10 - E03.9) 08/16/2024 Hyperlipidemia, unspecified (ICD-10 - E78.5) 08/16/2024 Palpitations (ICD-10 - R00.2) 08/16/2024 Other Assessment and Plan: 1. Palpitations and increased frequency - Possible thyroid medication adjustment needed - Patient to get blood work done by the end of July - Schedule follow-up appointment in August to review lab results and discuss possible medication adjustments 2. Blood pressure elevation due to work stress - Patient took additional blood pressure medication and Lorazepam - Blood pressure returned to normal the following day - Encourage stress management techniques and monitoring blood pressure regularly 3. Thyroid medication management - Patient currently on Tirosint and liothyronine (T3) - Last free T4 level at the upper end of normal range - Monitor lab results and adjust dosage if necessary based on weight and lab values 4. Anxiety and situational stress - Prescribe propranolol for rapid heart rate and panic attacks - Safer alternative to Ativan (Lorazepam) - Patient to inform audiometric technician about propranolol prescription 5. Cardiology follow-up - Patient has appointments with audiometric technician Dr. Romain Washburn and Sue Miller - Continue monitoring heart health and addressing any concerns with specialists 6. Medication refill and inventory - Patient has sufficient supply of Tirosint and additional 100 mcg dosage if needed - Propranolol prescription sent to [facility] for patient pick-up Spent 15 minutes preventative counseling patient on dietary recommendations and changes in setting of hyperglycemia- need to restrict refined sugars and processed foods and incorporate up to 150 minutes of moderate level activity weekly. Spent 25 minutes preparing to see the patient (ex review of tests/chart), obtaining and / or reviewing separately obtained history, performing a medically appropriate examination and/or evaluation, counseling and educating the patient/family/residential child care counselor, ordering medications, tests, or procedures, referring and communicating with other health primary care provider, documenting clinical information in the electronic or other health record, independently interpreting results and communicating results to the patient/family/residential child care counselor and care coordinating patient plan. Patient alert and oriented x 4 and aware of discussion noted above and in agreeance to plan in management of hypothyroidism, palpitations, hyperlipidemia and weight management. Due to the nature of telemedicine, the ability to do physical assessment was limited to what can be accomplished by patient directed telehealth visit based on instruction. Those limits are understood by the patient and myself. Impression is based on history, available information, and physical findings accomplished with telehealth visit. Chronic disease/problem list/ medication list reviewed and updated where indicated. Discussed diagnosis, plan including risks, benefits, and options of treatment. Advised to call for new, worsening, or persistent symptoms. Level of patient risk was of moderate complexity due to the documented nature of presentation, the information assessment required and the nature of the development of an evaluation and treatment plan as documented. PMH, FHx, SHx, Surgical Hx, Quality management review carried out and addressed as documented today as part of this visit. Medication list was reviewed and adjusted as indicated. Medication requiring a refill was addressed. Risk and benefits of any new medications were discussed and all questions were answered. Plan Of Treatment Medication Medication Name Sig Start Date Stop Date Notes Propranolol HCl 10 MG 1 tablet on an emp ty stomach Orally every 12 hrs as needed for HR over 90 bpm for 30 days 08/16/2024 Treatment Notes Assessment Notes Other Assessment and Plan: 1. Palpitations and increased frequency - Possible thyroid medication adjustment needed - Patient to get blood work done by the end of July - Schedule follow-up appointment in August to review lab results and discuss possible medication adjustments 2. Blood pressure elevation due to work stress - Patient took additional blood pressure medication and Lorazepam - Blood pressure returned to normal the following day - Encourage stress management techniques and monitoring blood pressure regularly 3. Thyroid medication management - Patient currently on Tirosint and liothyronine (T3) - Last free T4 level at the upper end of normal range - Monitor lab results and adjust dosage if necessary based on weight and lab values 4. Anxiety and situational stress - Prescribe propranolol for rapid heart rate and panic attacks - Safer alternative to Ativan (Lorazepam) - Patient to inform audiometric technician about propranolol prescription 5. Cardiology follow-up - Patient has appointments with audiometric technician Dr. Romain Washburn and Sue Miller - Continue monitoring heart health and addressing any concerns with specialists 6. Medication refill and inventory - Patient has sufficient supply of Tirosint and additional 100 mcg dosage if needed - Propranolol prescription sent to [facility] for patient pick-up Spent 15 minutes preventative counseling patient on dietary recommendations and changes in setting of hyperglycemia- need to restrict refined sugars and processed foods and incorporate up to 150 minutes of moderate level activity weekly. Spent 25 minutes preparing to see the patient (ex review of tests/chart), obtaining and / or reviewing separately obtained history, performing a medically appropriate examination and/or evaluation, counseling and educating the patient/family/caregiver, ordering medications, tests, or procedures, referring and communicating with other health primary care provider, documenting clinical information in the electronic or other health record, independently interpreting results and communicating results to the patient/family/caregiver and care coordinating patient plan. Patient alert and oriented x 4 and aware of discussion noted above and in agreeance to plan in management of hypothyroidism, palpitations, hyperlipidemia and weight management. Due to the nature of telemedicine, the ability to do physical assessment was limited to what can be accomplished by patient directed telehealth visit based on instruction. Those limits are understood by the patient and myself. Impression is based on history, available information, and physical findings accomplished with telehealth visit. Chronic disease/problem list/ medication list reviewed and updated where indicated. Discussed diagnosis, plan including risks, benefits, and options of treatment. Advised to call for new, worsening, or persistent symptoms. Level of patient risk was of moderate complexity due to the documented nature of presentation, the information assessment required and the nature of the development of an evaluation and treatment plan as documented. PMH, FHx, SHx, Surgical Hx, Quality management review carried out and addressed as documented today as part of this visit. Medication list was reviewed and adjusted as indicated. Medication requiring a refill was addressed. Risk and benefits of any new medications were discussed and all questions were answered. Next Appt Details Follow Up: 4 Weeks, Reason: labwork Progress Notes * KATEY PatsyOB:[birth year] (64 yo F)Acc No.[id number]:08/16/2024 Progress Notes Patient: Katie JOHNSTON Provider: Karli Bloom MD :[id number] A ge:64 Y S ex:Female Date:08/16/2024 Address:[address] [place], [place] [id number] Subjective: * Chief Complaints: * 1 . Heart palpitations amanda. * HPI: I nterval Hx: 64 yo female calls in today to initiate telehealth visit to discuss progress and management of hypothyroidism, hyperlipidemia. Verbal consent provided by patient to proceed with this visit. This visit was performed in office via provider and patient located in primary care office with real time audio with video. At last visit in Apr we continued tirosint 88 mcg daily and liothyronine 10 mcg in afternoon. Violeta, a 64-year-old female, presented with increased frequency of palpitations, particularly after experiencing elevated blood pressure due to work stress. She took an additional dose of her antihypertensive medication and lorazepam, which led to prolonged palpitations that resolved by morning. She is currently on Tirosint and liothyronine for thyroid management, with her last free T4 level at 1.5. A follow-up appointment is scheduled for August to review upcoming lab results and discuss potential medication adjustments. Propranolol was prescribed for anxiety-related palpitations, and she was advised to continue monitoring her blood pressure and manage stress. 64-year-old female presents with palpitations. Patient reports increased frequency of palpitations recently. Yesterday, she experienced an episode of elevated blood pressure (173/98) due to work stress. She took an additional dose of her antihypertensive medication and lorazepam. Subsequently, palpitations started and persisted through the night, resolving by morning. This was the first occurrence of such prolonged palpitations. Patient denies recent weight loss or dietary changes, currently weighing 160 pounds. She takes Tirosint at 5 AM on an empty stomach and liothyronine at noon, but skipped today's T3 dose due to concern about palpitations. Patient reports optimal energy in the morning with increased fatigue in the evening. Last thyroid function tests were performed in late April, with free T4 at 1.5. Medical History - Thyroid disorder (patient is on thyroid medication) - Hypertension (patient is on blood pressure medication) - Anxiety (patient has taken lorazepam in the past) Current and Past Medications and Supplements - Tirosint (taken at 5 AM on an empty stomach) - Liothyronine (T3) (taken at noon) - Blood pressure medicine (unspecified) - Lorazepam (taken occasionally) Social History - Occupation: employed, experiencing work-related stress - Weight: 160 pounds - Stress: reports work-related stress - Substance use: coffee consumption mentioned Review of Systems - Cardiovascular: Palpitations, more frequent lately; blood pressure elevated during stress - Constitutional: No weight loss - General: Best energy in morning, more tired in evening. * ROS: E NDOCRINOLOGY: fatigue y es. n o e xcessive sweating. n o e xcessive thirst. n o e xcessive urination. n o w eight loss. n o s leep disturbance. n o c old intolerance. n o h eat intolerence. t hyroid disease y es. n o i ncreased loss of hair. n o h x of borderline diabetes. n o d iabetes. n o a bdormal body hair. N EUROLOGY: no h eadache. n o t ingling numbness. n o s eizures. n o i nsomnia. n o m winnie loss. n o d izziness. n o g ait abnormality. n o c hange in sensation anywhere on body. n o l ocalized weakness or numbness. n o b lackouts or near blackouts. n o m igraine. n o t remors.?no f ainting spells. R ESPIRATORY: no s hortness of breath. n o c hest pain. n o?wheezing. n o a sthma. n o b reathlessness when lying flat. n o p rolonged cough. n o f requent infections (bronchitis). n o e mphysema. n o c hest congestion. n o s leep apnea. H EMATOLOGY/LYMPH: no s wollen glands. n o f atigue. n o l oss of appetite. n o e asy bruising. n o e asy bleeding. n o a nemia. ? U ROLOGY: no d ifficulty urinating. n o b lood in urine. n o u rinary urgency. n o f requent urination. n o u rinary incontinence. n o v oiding dysfunction. n o v ulvodynia. n o d ysparaunia. n o r ecurrent UTI. n o w eak flow. n o d ribbling after urination. n o f requent bladder infections. n o k idney stone. N UTRITION: greater than body requirmemts y es. a ppropriate / adequate y es, y es. C ONSTITUTIONAL: no w eight gain. n o l oss of appetite. n o?fever. n o w eakness. n o w eight loss. n o n ight sweats. n o n ausea. n o v isual changes. n o c hange in sleep patterns. D ERMATOLOGY: no r genevieve. n o c hange in color of moles. n o?lumps. n o d ry or sensitive skin. n o h maribel. n o o uvaldo skin. n o?acne. n o m oles-irregular. n o m oles-change/new. n o b oils. n o?dandruff. n o e xcessive body odor. n o p soriasis. C ARDIOLOGY: no p alpitations. n o s hortness of breath. h igh blood pressure y es, i ntermittent in nature. G ASTROENTEROLOGY: no n ausea. n o h eartburn. n o s tool incontinence. n o r eflux. n o a bdominal pain. n o i ndigestion. n o h emorrhoids. n o h iatal hernia. n o u lcers. n o a nal fissures. n o?hepatitis. n o g allstones. n o r ed blood after bowel movements. n o v omiting. n o b loating/belching. n o d ifficulty swallowing. n o d iarrhea.?no c onstipation. n o c hange in bowel habits. n o b lood in stool. ? M USCULOSKELETAL: no j oint swelling. n o j oint pain. n o l eg cramps. n o j oint stiffness. n o a rthritis. n o b ack pain. n o?muscle aches. n o m orning stiffness. n o t endinitis. n o n nilam pain.?no b ursitis. n o b one marrow biopsy. n o g out. P SYCHOLOGY: no h igh stress level. n o d epression. n o?sleep disturbances. n o r franklin sx worse with stress. n o s uicidal ideation. n o e ating disorder. n o m ental or physical abuse. n o a nxiety. n o h eadaches. * Medical History: H ypothyroidism. * Medications: T aking Liothyronine Sodium 5 MCG Tablet 1 tab(s) orally once a day at noon , Taking Tirosint 88 MCG (0.088 MG) CAPSULE TAKE ONE CAPSULE BY MOUTH EVERY DAY , Notes to Pharmacist: *Please review and pick correct strength-formulation from [employer] options. If intended option is not shown, discontinue and re-order from Quick Search* Objective: * Vitals: R R:12, HR:61, BP:128/68, Ht: 67, Wt:160, BMI: 25.06. * Examination: G eneral Examination: General n ormal, NAD, well nourished and hydrated, pleasant. Neck, thyroid : s upple. Assessment: * Assessment: 1. O besity, unspecified - E66.9 (Primary) 2 . D ietary counseling and surveillance - Z71.3 3 . H ypothyroidism, unspecified - E03.9 4 .?Hyperlipidemia, unspecified - E78.5 5 . P alpitations - R00.2 ? Plan: * Treatment: 2. O thers Notes:Assessment and Plan: 1. Palpitations and increased frequency - Possible thyroid medication adjustment needed - Patient to get blood work done by the end of July - Schedule follow-up appointment in August to review lab results and discuss possible medication adjustments 2. Blood pressure elevation due to work stress - Patient took additional blood pressure medication and Lorazepam - Blood pressure returned to normal the following day - Encourage stress management techniques and monitoring blood pressure regularly 3. Thyroid medication management - Patient currently on Tirosint and liothyronine (T3) - Last free T4 level at the upper end of normal range - Monitor lab results and adjust dosage if necessary based on weight and lab values 4. Anxiety and situational stress - Prescribe propranolol for rapid heart rate and panic attacks - Safer alternative to Ativan (Lorazepam) - Patient to inform audiometric technician about propranolol prescription 5. Cardiology follow-up - Patient has appointments with audiometric technician Dr. Romain Washburn and Sue Miller - Continue monitoring heart health and addressing any concerns with specialists 6. Medication refill and inventory - Patient has sufficient supply of Tirosint and additional 100 mcg dosage if needed - Propranolol prescription sent to [facility] for patient pick-up Spent 15 minutes preventative counseling patient on dietary recommendations and changes in setting of hyperglycemia- need to restrict refined sugars and processed foods and incorporate up to 150 minutes of moderate level activity weekly. Spent 25 minutes preparing to see the patient (ex review of tests/chart), obtaining and / or reviewing separately obtained history, performing a medically appropriate examination and/or evaluation, counseling and educating the patient/family/caregiver, ordering medications, tests, or procedures, referring and communicating with other health primary care provider, documenting clinical information in the electronic or other health record, independently interpreting results and communicating results to the patient/family/caregiver and care coordinating patient plan. Patient alert and oriented x 4 and aware of discussion noted above and in agreeance to plan in management of hypothyroidism, palpitations, hyperlipidemia and weight management. Due to the nature of telemedicine, the ability to do physical assessment was limited to what can be accomplished by patient directed telehealth visit based on instruction. Those limits are understood by the patient and myself. Impression is based on history, available information, and physical findings accomplished with telehealth visit. Chronic disease/problem list/ medication list reviewed and updated where indicated. Discussed diagnosis, plan including risks, benefits, and options of treatment. Advised to call for new, worsening, or persistent symptoms. Level of patient risk was of moderate complexity due to the documented nature of presentation, the information assessment required and the nature of the development of an evaluation and treatment plan as documented. PMH, FHx, SHx, Surgical Hx, Quality management review carried out and addressed as documented today as part of this visit. Medication list was reviewed and adjusted as indicated. Medication requiring a refill was addressed. Risk and benefits of any new medications were discussed and all questions were answered. ? * Procedure Codes: 9 9401 P/M ASSOCIATE SALES MANAGER, INDIV 15 MIN * Follow Up: 4 Weeks (Reason: labwork) * Billing Information: * Visit Code: 90664 Office Visit, Est Pt., Level 4. Modifiers: 95 * Procedure Codes: 79806 P/M ASSOCIATE SALES MANAGER, INDIV 15 MIN. * MEDICINE PHYSICIAN Sign off status: Completed true * Provider: Karli Bloom MD Date: 1 10/17/2023 Generated for Sameer rodriguez/Thais/Alvaroitting on: 0 12/11/2024 09:31 AM CDT History and Physical Notes * HPI (History of Present Illness) Category Sub-Category Detail Notes Category Not es Interval Hx 64 yo female calls in today to initiate telehealth visit to discuss progress and management of hypothyroidism, hyperlipidemia. Verbal consent provided by patient to proceed with this visit. This visit was performed in office via provider and patient located in primary care office with real time audio with video. At last visit in Apr we continued tirosint 88 mcg daily and liothyronine 10 mcg in afternoon. Violeta, a 64-year-old female, presented with increased frequency of palpitations, particularly after experiencing elevated blood pressure due to work stress. She took an additional dose of her antihypertensive medication and lorazepam, which led to prolonged palpitations that resolved by morning. She is currently on Tirosint and liothyronine for thyroid management, with her last free T4 level at 1.5. A follow-up appointment is scheduled for August to review upcoming lab results and discuss potential medication adjustments. Propranolol was prescribed for anxiety-related palpitations, and she was advised to continue monitoring her blood pressure and manage stress. 64-year-old female presents with palpitations. Patient reports increased frequency of palpitations recently. Yesterday, she experienced an episode of elevated blood pressure (173/98) due to work stress. She took an additional dose of her antihypertensive medication and lorazepam. Subsequently, palpitations started and persisted through the night, resolving by morning. This was the first occurrence of such prolonged palpitations. Patient denies recent weight loss or dietary changes, currently weighing 160 pounds. She takes Tirosint at 5 AM on an empty stomach and liothyronine at noon, but skipped today's T3 dose due to concern about palpitations. Patient reports optimal energy in the morning with increased fatigue in the evening. Last thyroid function tests were performed in late April, with free T4 at 1.5. Medical History - Thyroid disorder (patient is on thyroid medication) - Hypertension (patient is on blood pressure medication) - Anxiety (patient has taken lorazepam in the past) Current and Past Medications and Supplements - Tirosint (taken at 5 AM on an empty stomach) - Liothyronine (T3) (taken at noon) - Blood pressure medicine (unspecified) - Lorazepam (taken occasionally) Social History - Occupation: employed, experiencing work-related stress - Weight: 160 pounds - Stress: reports work-related stress - Substance use: coffee consumption mentioned Review of Systems - Cardiovascular: Palpitations, more frequent lately; blood pressure elevated during stress - Constitutional: No weight loss - General: Best energy in morning, more tired in evening Examination Category Sub-Category Detail Notes Category Not es General Examination Neck, thyroid : supple General normal, NAD, well no urished and hydrated, pleasant
--- OUTSIDE RECORDS SUMMARY | 2024-12-11 23:47 | XMS_ITS | Clinical Summary ---
Author Organization [facility] Address [address] [place] [address] Care Team Providers Care Tuber Operator Name Role Phone Donna Sue DEMARIO Primary Care Provider [phone] Allergies No known active allergies Medications busPIRone (BUSPAR) 5 MG tablet Take 1 tablet (5 mg total) by mouth 2 (two) times daily as needed. Active liothyronine (CYTOMEL) 5 MCG Tab Take 1 tablet (5 mcg total) by mouth 2 (two) times daily. 10/06/2024 Active TIROSINT 88 MCG Cap Take 1 capsule by mouth daily. 09/10/2024 Active cyanocobalamin (B-12) 1000 MCG/ML injection INJECT 1 ML UNDER THE SKIN EVERY 2 WEEKS Active losartan (COZAAR) 50 MG tablet Take 1 tablet (50 mg total) by mouth daily. 09/12/2024 Active LORazepam (ATIVAN) 0.5 MG tablet Take 1 tablet (0.5 mg total) by mouth as needed. Active LORazepam (ATIVAN) 1 MG tablet Take 1 tablet (1 mg total) by mouth as needed. Active Active Problems Problem Noted Date Diagnosed Date Hyperlipidemia 10/30/2024 Benign essential hypertension 10/02/2022 Encounters Date Type Department Care Team Description 12/11/2024 9:30 AM CDT Hospital Encounter [facility] [address] [place] [address] Rajinder Schumacher MD Arrived 12/11/2024 [facility] [address] [place] [phone] Rajinder Schumacher MD follow up 12/11/2024 Travel 11/15/2024 4:15 PM CDT - 11/15/2024 11:59 PM CDT Hospital Encounter [facility] [address] [address] Rajinder Schumacher MD Discharge Disposition: Home or Self Care (Routine Discharge) 11/15/2024 Travel 11/14/2024 Abstract [facility] [address] [place] [address] RikahomeroLawrenceeric, LIBBY 10/30/2024 9:15 AM ANHYDROUS AMMONIA PRODUCTION SUPERVISOR [place] [facility] [address] [place] [phone] Rajinder Schumacher MD Consult; Hypertension; Lipids 10/30/2024 Travel from Last 3 Months Family History Medical History Relation Comments Heart Attack Father Open Heart Father Stent Cardiac Father Relation Status Comments Father Mother Social History Tobacco Use Types Packs/Day Years [...] Sign Reading Time Taken Comments Blood Pressure 130/80 10/30/2024 9:36 AM ANHYDROUS AMMONIA PRODUCTION SUPERVISOR Pulse 88 10/30/2024 9:36 AM ANHYDROUS AMMONIA PRODUCTION SUPERVISOR Temperature - - Respiratory Rate - - Oxygen Saturation - - Inhaled Oxygen Concentration - - Weight 76.2 kg (168 lb) 10/30/2024 9:36 AM ANHYDROUS AMMONIA PRODUCTION SUPERVISOR Height 170.2 cm (5' 7 ) 10/30/2024 9:36 AM ANHYDROUS AMMONIA PRODUCTION SUPERVISOR Body Mass Index 26.31 10/30/2024 9:36 AM ANHYDROUS AMMONIA PRODUCTION SUPERVISOR Plan of Treatment Upcoming Encounters Date Type Department Care Team (Late st Contact Info) Description 01/15/2025 8:45 AM CDT Office Visit [facility] [address] [address] [place] [phone] Rajinder Schumacher MD [facility] [address] [place] [address] Health Maintenance Due Date Last Done Comments Cervical Cancer Screening Pa p Smear (Age 30 to 64) Every 3 Years 1960 Colorectal Cancer Screening Colonoscopy (10 Years) 1960 Annual Physical 1965 Hepatitis C 1980 DTaP, Tdap and Td Vaccines ( 1 - Tdap) 1981 Cervical Cancer Screening Pa p with HPV Testing (Age 30 to 64) Every 5 Years 1992 Cervical Cancer Screening with HPV 1992 Pneumococcal Vaccine: 50+ Ye ars (1 of 1 - PCV) 2012 Zoster Vaccines (1 of 2) 2012 COVID-19 Vaccine (1 - 2023-2 5 season) 2024 Mammogram Screening 05/24/2026 05/24/2024 RSV Immunization or 60+ Years (1 - 1-dose 75+ series) 2037 Meningococcal B Vaccine Aged Out No l onger eligible based on patient's age to complete this topic Meningococcal Vaccine Aged Out No nate tutu eligible based on patient's age to complete this topic RSV Immunizations Under 20 Months Aged Out No longer eligible based on patient's age to complete this topic Procedures Procedure Name Priority Date/Time Associated Diagnosis Comments STRESS TEST ONLY, EXERCISE Routine 12/11/2024 9:30 AM CDT Benign essential hypertension Hyperlipidemia, unspecified hyperlipidemia type Procedure Note - Rajinder Schumacher MD - 12/11/2024 9:30 AM CDTThis note is in progress. Patient Name: SOLO DEL TORO Date of : 1960 Account: [id number] Facility: [facility] Location: [facility] Date of Service: 12/11/2024 Stress Test [...] risk for myocardial event. Signature/Date: RAJINDER SCHUMACHER #[id number] /DIN CT HEART SCREEN CALCIUM SCORE PROMO Routine 11/15/2024 4:31 PM CDT Benign essential hypertension Hyperlipidemia, unspecified hyperlipidemia type APOLIPOPROTEIN B Routine 11/13/2024 LIPOPROTEIN A Routine 11/13/2024 C-REACTIVE PROTEIN, HIGH SENSI Routine 11/13/2024 ELECTROCARDIOGRAM (NON MIDMARK ACQUIRED) Routine 10/30/2024 9:48 AM ANHYDROUS AMMONIA PRODUCTION SUPERVISOR Benign essential hypertension Hyperlipidemia, unspecified hyperlipidemia type from Last 3 Months Results * CT HEART SCREEN CALCIUM SCORE PROMO (11/15/2024 4:31 PM CDT) Anatomical Region Laterality Modality Chest Computed Tomogra phy 11/15/2024 5:26 PM CDT Impressions 11/15/2024 5:34 PM CDT IMPRESSION: 1. The total calcium score of 0 which is 25 percentile for gender and age matched population. This examination is not to be considered a substitute for a clinical examination by a physician. Coronary calcium scoring is intended to be a risk assessment test for coronary artery disease, and the results of this examination should be taken into careful consideration by the patient's own physician in the context of other factors such as relevant history, physical examination, and any other indicated investigations. All reference calcium scores contained in this report were generated from Electron Beam Tomography, or an equivalent technology. Please bear this proviso in mind when reviewing this report. 2. Ordered By: RAJINDER SCHUMACHER Interpreted By: Simon Casas MD, 11/15/2024 5:26 PM Narrative 11/15/2024 5:34 PM CDT [address] [address] EXAMINATION: CARDIAC CT - CORONARY CALCIUM CT EXAM DATE/TIME: 11/15/2024 4:15 PM REASON FOR EXAM: elevated lipid Hypertension COMPARISON: None HISTORY: 64-year old female for coronary artery disease risk assessment. TECHNIQUE: Multidetector computerized tomography coronary angiogram was obtained using retrospective ECG gating. ECG tube modulation was used to reduce the radiation exposure. Calcium score was calculated using [employer] system software. No intravenous contrast material was administered. A dose lowering technique was used for this procedure, which may include, but is not limited to, dose reduction technique, automated exposure control, the use of iterative reconstruction, and ALARA (As Low As Reasonably Achievable) / Image Gently techniques. Procedure Complications/Allergic reactions: None. Coronary calcium CT quality: Good, limited by nothing FINDINGS: AGATSTON SCORE: The total calcium score is 0. This places the patient into the 25% in comparison to a group of patient's asymptomatic for coronary artery disease with the same age and gender. This means that 24% of women at age 62 have calcium scores equal to the patient. Refer to the printed report for the graph demonstrating the population risk stratification for asymptomatic women. Coronary Artery Score Left Main (LM) 0 Left Anterior Descending (LAD) 0 Left Circumflex (LCX) 0 Right Coronary Artery (RCA) 0 Total Agatston Score 0 ADDITIONAL FINDINGS: The cardiac chambers are normal. The cardiac valves are unremarkable without calcification. The visualized thoracic aorta is normal caliber. No suspicious lung nodule, mass, consolidation. Visible upper abdomen is unremarkable. No suspicious osteolytic or osteoblastic lesions. Procedure Note Simon Casas MD - 11/15/2024 [address] [place] [address] EXAMINATION: CARDIAC CT - CORONARY CALCIUM CT EXAM DATE/TIME: 11/15/2024 4:15 PM REASON FOR EXAM: elevated lipid Hypertension COMPARISON: None HISTORY: 64-year old female for coronary artery disease riskassessment. TECHNIQUE: Multidetector computerized tomography coronary angiogram wasobtained using retrospective ECG gating. ECG tube modulation was used toreduce the radiation exposure. Calcium score was calculated usingCambridge CMOS Sensors software. No intravenous contrast material wasadministered. A dose lowering technique was used for this procedure, whichmay include, but is not limited to, dose reduction technique, automatedexposure control, the use of iterative reconstruction, and ALARA (As LowAs Reasonably Achievable) / Image Gently techniques. Procedure Complications/Allergic reactions: None. Coronary calcium CT quality: Good, limited by nothing FINDINGS: AGATSTON SCORE: The total calcium score is 0. This places the patient intothe 25% in comparison to a group of patient's asymptomatic for coronaryartery disease with the same age and gender. This means that 24% of womenat age 62 have calcium scores equal to the patient. Refer to the printedreport for the graph demonstrating the population risk stratification forasymptomatic women. Coronary Artery Score Left Main (LM) 0 Left Anterior Descending (LAD) 0 Left Circumflex (LCX) 0 Right Coronary Artery (RCA) 0 Total Agatston Score 0 ADDITIONAL FINDINGS: The cardiac chambers are normal. The cardiac valvesare unremarkable without calcification. The visualized thoracic aorta isnormal caliber. No suspicious lung nodule, mass, consolidation. Visibleupper abdomen is unremarkable. No suspicious osteolytic or osteoblasticlesions. IMPRESSION: 1. The total calcium score of 0 which is 25 percentile for gender and agematched population. This examination is not to be considered a substitute for a clinicalexamination by a physician. Coronary calcium scoring is intended to be arisk assessment test for coronary artery disease, and the results of thisexamination should be taken into careful consideration by the patient'sown physician in the context of other factors such as relevant history,physical examination, and any other indicated investigations. Allreference calcium scores contained in this report were generated fromElectron Beam Tomography, or an equivalent technology. Please bear thisproviso in mind when reviewing this report. 2. Ordered By: RAJINDER SCHUMACHER Interpreted By: Simon Casas MD, 11/15/2024 5:26 PM Rajinder Schumacher MD CT Final Result * LIPOPROTEIN A (11/13/2024) [facility] LIPOPROTEIN (A) 72 <75 11/13/2024 us Default History Genericprovider LABORATORY Final Result * APOLIPOPROTEIN B (11/13/2024) [facility] APOLIPOPROTEIN B 102 <90 11/13/2024 us Default History Genericprovider LABORATORY Final Result * C-REACTIVE PROTEIN, HIGH SENSI (11/13/2024) [facility] CRP HIGH SENSITIVITY 2.1 <1.0 11/13/2024 us Default History Genericprovider LABORATORY Edited Result - Final * ELECTROCARDIOGRAM (10/30/2024 9:48 AM ANHYDROUS AMMONIA PRODUCTION SUPERVISOR) 10/30/2024 9:48 AM ANHYDROUS AMMONIA PRODUCTION SUPERVISOR Narrative [facility] - 10/30/2024 1:22 PM ANHYDROUS AMMONIA PRODUCTION SUPERVISOR [facility] Test Date: 2024-10-30 Pat Name: SOLO DEL TORO Department: 107 Room: Gender: Female Blood Bank Attendant: nash : 1960 Requested By: RAJINDER SCHUMACHER Order Number: [id number] Reading MD: Rajinder Schumacher Measurements Intervals Letts Rate: 89 P: 63 AR: 140 QRS: 39 QRSD: 90 T: 60 QT: 350 QTc: 426 Interpretive Statements SINUS RHYTHM DROUS AMMONIA PRODUCTION SUPERVISOR Procedure Note Rajinder Schumacher MD - 10/30/2024 [facility] Test Date: 2024-10-30 Pat Name: SOLO DEL TORO Department: 107 Room: Gender: Female Blood Bank Attendant: nash : 1960 Requested By: RAJINDER SCHUMACHER Order Number: [id number] Reading MD: Rajinder Schumacher Measurements Intervals Letts Rate: 89 P: 63 AR: 140 QRS: 39 QRSD: 90 T: 60 QT: 350 QTc: 426 Interpretive Statements SINUS RHYTHM DROUS AMMONIA PRODUCTION SUPERVISOR us Rajinder Schumacher MD PROCEDURES-ORDERABLE NO CHARGE Final Result WENDY RODRIGUEZ from Last 3 Months Insurance Care Teams Tuber Operator Relationship Specialty Start Date End Date Sue Thompson PA [address] [place] [address] PCP - General PHYSICIAN FRAMING SPECIALIST 08/20/24
--- OUTSIDE RECORDS SUMMARY | 2024-12-11 23:47 | XMS_ITS | Patient Health Record ---
Author Organization [facility] Address [address] [address] Care Team Providers Care Clock And Watch Hands Mounter Name Role Phone Minnie Bloom Primary Care Provider Migration, Provider Unavailable Unavailable Results Component Value Reference Range Notes COMPREHENSIVE METABOLIC PANE L Reviewed date:04/02/2024 08:00:30 AM Interpretation: Performing Lab:[facility], [place], [address] Rossy Hollins MD Notes/Report: FASTING:YES FASTING: YES VITAMIN D, 25-HYDROXY, LC/MS /MS Reviewed date:04/02/2024 07:59:57 AM Interpretation: Performing Lab:[facility], [place], [address] Rossy Hollins MD Notes/Report: FASTING:YES FASTING: YES T3, FREE Reviewed date:04/04/2024 09:02:47 AM Interpretation: Performing Lab:[facility], [place], [address] Rossy Hollins MD Notes/Report: FASTING:YES FASTING: YES FOLATE, RBC Reviewed date:04/03/2024 03:39:11 PM Interpretation: Performing Lab:[facility], [place], [address] Rossy Hollins MD Notes/Report: FASTING:YES FASTING: YES FOLATE, RBC 493 >280 ng/mL RBC CBC (INCLUDES DIFF/PLT) Reviewed date:04/02/2024 08:00:10 AM Interpretation: Performing Lab:[facility], [address], [place], [address] Rossy Hollins MD Notes/Report: FASTING:YES FASTING: YES IRON AND TOTAL IRON BINDING CAPACITY Reviewed date:04/02/2024 08:00:37 AM Interpretation: Performing Lab:[facility], [address], [place], [address] Rossy Hollins MD Notes/Report: FASTING:YES FASTING: YES LIPID PANEL Reviewed date:04/02/2024 08:00:17 AM Interpretation: Performing Lab:[facility], [address], [place], [address] Rossy Hollins MD Notes/Report: FASTING:YES FASTING: YES T4, FREE Reviewed date:04/03/2024 03:22:54 PM Interpretation: Performing Lab:[facility], [address], [place], [place], [address] Rossy Hollins MD Notes/Report: FASTING:YES FASTING: YES TSH Reviewed date:04/02/2024 08:00:44 AM Interpretation: Performing Lab:[facility], [address], [place], [address] Rossy Hollins MD Notes/Report: FASTING:YES FASTING: YES VITAMIN B12 Reviewed date:04/02/2024 07:59:41 AM Interpretation: Performing Lab:[facility], [address], [place], [address] Rossy Hollins MD Notes/Report: FASTING:YES FASTING: YES COMPREHENSIVE METABOLIC PANE L Reviewed date:05/26/2024 08:33:51 PM Interpretation: Performing Lab:[facility], [address], [place], [address] Rossy Hollins MD Notes/Report: FASTING:YES FASTING: YES T3, FREE Reviewed date:05/26/2024 08:32:52 PM Interpretation: Performing Lab:[facility], [address], [place], [address] Rossy Hollins MD Notes/Report: FASTING:YES FASTING: YES CBC (INCLUDES DIFF/PLT) Reviewed date:05/26/2024 08:34:18 PM Interpretation: Performing Lab:[facility], [address], [place], [address] Rossy Hollins MD Notes/Report: FASTING:YES FASTING: YES IRON AND TOTAL IRON BINDING CAPACITY Reviewed date:05/26/2024 08:33:31 PM Interpretation: Performing Lab:[facility], [address], [place], [address] Rossy Hollins MD Notes/Report: FASTING:YES FASTING: YES LIPID PANEL Reviewed date:05/26/2024 08:33:23 PM Interpretation: Performing Lab:[facility], [address], [place], [address] Rossy Hollins MD Notes/Report: FASTING:YES FASTING: YES T4, FREE Reviewed date:05/26/2024 08:34:25 PM Interpretation: Performing Lab:[facility], [address], [place], [address] Rossy Hollins MD Notes/Report: FASTING:YES FASTING: YES TSH Reviewed date:05/26/2024 08:34:33 PM Interpretation: Performing Lab:[facility], [address], [place], [address] Rossy Hollins MD Notes/Report: FASTING:YES FASTING: YES DIHYDROTESTOSTERONE, LC/MS/M S Reviewed date:05/30/2024 08:58:55 PM Interpretation: Performing Lab:[facility],, [address] [place], [address] Radha Arroyo MD,PhD,TOBY Notes/Report: FASTING:YES FASTING: YES DIHYDROTESTOSTERONE, LC/MS/MS 9 < OR = 20 n g/dL This test was developed and its analytical performance characteristics have been determined by [employer]. It has not been cleared or approved by FDA. This assay has been validated pursuant to the CLIA regulations and is used for clinical purposes. VITAMIN B12 Reviewed date:05/27/2024 09:30:30 PM Interpretation: Performing Lab:[facility], [address] [place], [address] Rossy Hollins MD Notes/Report: FASTING:YES FASTING: YES TESTOSTERONE, FREE, BIOAVAIL ABLE AND TOTAL, MS Reviewed date:05/26/2024 08:33:06 PM Interpretation: Performing Lab:[facility], [facility], [facility] [address], [address], [place], [address] Ellen Yi MD,PhD Notes/Report: FASTING:YES FASTING: YES ALBUMIN 4.3 3.6-5.1 g/dL SEX HORMONE BINDING GLOBULIN 65.2 14-73 nmol/L TESTOSTERONE, FREE 1.7 0.2-5.0 pg/mL TESTOSTERONE,BIOAVAILABLE 3.3 0.5-8.5 ng/dL TESTOSTERONE, TOTAL, MS 25 2-45 ng/dL For additional information, please refer to https://education.[employer].com/faq/DDJ721 (This link is being provided for informational/educational purposes only.) (Note) This test was developed and its analytical performance characteristics have been determined by [employer]. It has not been cleared or approved by the FDA. This assay has been validated pursuant to the CLIA regulations and is used for clinical purposes. [facility] [address] [address],[address] [facility] [id number] Ellen Yi MD, PhD COMPREHENSIVE METABOLIC PANE L Reviewed date:08/28/2024 10:41:53 AM Interpretation: Performing Lab:[facility], [address] [place], [address] Rossy Hollins MD Notes/Report: FASTING:YES FASTING: YES VITAMIN D, 25-HYDROXY, LC/MS /MS Reviewed date:08/28/2024 10:41:53 AM Interpretation: Performing Lab:[facility], [address] [place], [address] Rossy Hollins MD Notes/Report: FASTING:YES FASTING: YES T3, FREE Reviewed date:08/28/2024 10:41:53 AM Interpretation: Performing Lab:[facility], [address], [address] Rossy Hollins MD Notes/Report: FASTING:YES FASTING: YES CBC (INCLUDES DIFF/PLT) Reviewed date:08/28/2024 10:41:53 AM Interpretation: Performing Lab:[facility], [address] [place], [address] Rossy Hollins MD Notes/Report: FASTING:YES FASTING: YES VITAMIN B12/FOLATE, SERUM PA MAYELIN Reviewed date:08/28/2024 10:41:53 AM Interpretation: Performing Lab:[facility], [address] [place], [address] Rossy Hollins MD Notes/Report: FASTING:YES FASTING: YES LIPID PANEL Reviewed date:08/28/2024 10:41:53 AM Interpretation: Performing Lab:[facility], [address] [place], [address] Rossy Hollins MD Notes/Report: FASTING:YES FASTING: YES T4, FREE Reviewed date:08/28/2024 10:41:53 AM Interpretation: Performing Lab:[facility], [address] [place], [address] Rossy Hollins MD Notes/Report: FASTING:YES FASTING: YES TSH Reviewed date:08/28/2024 10:41:53 AM Interpretation: Performing Lab:[facility] [address] [place], [address] Rossy Hollins MD Notes/Report: FASTING:YES FASTING: YES Reason For Referral No Information Medications Medication SIG (Take, Route, Frequency, Duration) Notes Start Date End Date Status Losartan Potassium 50 MG 1 tablet Orally Once a day Active Tirosint 88 MCG 1 capsule in the morning on an empty stomach Orally Once a day for 90 days 09/10/2024 Active Liothyronine Sodium 5 MCG 1 tab(s) orally once a day at noon for 90 days only taking one at noon 04/12/2024 Active Tirosint 88 MCG (0.088 MG) TAKE ONE CAPSULE BY MOUTH EVERY DAY for 90 *Please review and pick correct strength-formulatio n from [employer] options. If intended option is not shown, discontinue and re-order from Quick Search* Active Propranolol HCl 10 MG 1 tablet on an empty stomach Orally every 12 hrs as needed for HR over 90 bpm for 30 days 08/16/2024 Active Problems Problem Type SNOMED Code ICD Code Onset Dates Problem Status W/U Status Risk Notes Problem Hyperlipidemia (05854085) Hyperlipidemia, unspecified (E78.5) Active confirmed Problem Essential hypertension (93229824) Essential (primary) hypertension (I10) Active confirmed Problem Hypothyroidism (19393167) Hypothyroidism, unspecified (E03.9) Active confirmed Problem Anxiety disorder (162625285) Anxiety disorder, unspecified (F41.9) Active confirmed Problem Obesity (664250066) Obesity, unspecified (E66.9) Active confirmed Vital Signs Heart Rate 62 /min 09/10/2024 Temperature 98 degrees Fahrenheit 12/21/2023 Respiratory Rate 12 /min 09/10/2024 Blood pressure diastolic 72 mm Hg 09/10/2024 Height 67 in 09/10/2024 Blood pressure systolic 120 mm Hg 09/10/2024 Weight 161 lbs 09/10/2024 BMI 25.21 kg/m2 09/10/2024 Encounters Encounter Location Date Provider Diagnosis [facility] [address] [place] [address] 07/13/2024 Provider Migration Hypothyroidism, unspecified E03.9 [facility] [address] [place] [address] 12/22/2023 Minnie Bloom Anxiety disorder, unspecified F41.9 [facility] - Minnie Bloom [address] [place] [address] 01/03/2024 Minnie [facility] [address] [place] [address] 03/14/2024 Minnie Wood [facility] [address] [place] [address] 03/27/2024 Minnie Bloom [facility] - Minnie [facility] [address] [place] [address] 04/12/2024 Minnie Bloom Hypothyroidism, unspecified E03.9 [facility] - [facility]ie [address] [address] [place] [address] 04/30/2024 Minnie Bloom [facility] [address] [place] [address] 05/02/2024 [facility] - [facility]ie [address] [address] [place] [address] 05/16/2024 Minnie Bloom [facility] - [facility]ie [address] [address] [place] [address] 06/21/2024 Minnie Bloom [facility] - Minnie [address] [address] [place] [address] 08/01/2024 Minnie Bloom [facility] [id number] [place] [address] 08/02/2024 Minnie Bloom [facility] - [facility]ie [facility] [id number] [place] [address] 12/21/2023 Minnie Wolf Hypothyroidism, unspecified E03.9 and Other fatigue R53.83 [facility] - [facility]ie [address] [address] [place] [address] 04/11/2024 Minnie Bloom Hypothyroidism, unspecified E03.9 and Hyperlipidemia, unspecified E78.5 [facility] - Minnie [address] [address] [place] [address] 05/07/2024 Minnie Bloom Hypothyroidism, unspecified E03.9 and Nonscarring hair loss, unspecified L65.9 [facility] - Minnie [address] [address] [place] [address] 08/16/2024 Minnie Bloom Obesity, unspecified E66.9 ; Dietary counseling and surveillance Z71.3 ; Hypothyroidism, unspecified E03.9 ; Hyperlipidemia, unspecified E78.5 and Palpitations R00.2 [employer] [facility] [employer] [address] [place] [address] 09/10/2024 Minnie Bloom Hypothyroidism, unspecified E03.9 ; Hyperlipidemia, unspecified E78.5 and Essential (primary) hypertension I10 [employer] [facility] Minnie [facility] [address] [place] [address] 04/18/2024 Minnie Bloom Assessments Encounter Date Diagnosis (ICD Code) Assessment Notes Treatment Notes Treatment Clinical Notes Section Notes 07/13/2024 Hypothyroidism, unspecified (ICD-10 - E03.9) 12/22/2023 Anxiety disorder, unspecified (ICD-10 - F41.9) 04/12/2024 Hypothyroidism, unspecified (ICD-10 - E03.9) 12/21/2023 Other fatigue (ICD-10 - R53.83) Send for CBC/CMP and vitamin panel to monitor for any secondary causes of fatigue. 12/21/2023 Hypothyroidism, unspecified (ICD-10 - E03.9) Continue on tirosint 88 mcg daily- TSH mildly elevated with low TT3 levels- likely secondary to recent treatment with radiation as patient dx with stage IA breast ca late in 2022 led to lumpectomy and radiation- follows Dr. Díaz- will repeat thyroid panel in 2 months to monitor for changes as she likely underwent a euthyroid sick type picture due to the changes. She feels good overall and denies any significant fatigue or cold intolerance that would warrant T3 therapy at this time. 04/11/2024 Hyperlipidemia, unspecified (ICD-10 - E78.5) LDL at 148 mg/DL previously 131 mg/dL so diet controlled- recommended super omega three fatty acids with fish / olive oil based from [employer]-two capsules twice daily. 04/11/2024 Hypothyroidism, unspecified (ICD-10 - E03.9) FT4 in ideal range. FT3 low normal range with hair thinning/loss- recommended low dose liothyronine 5 mcg in afternoon. She is aware to take with water only and wait one hour to have food, other meds etc. 05/07/2024 Hypothyroidism, unspecified (ICD-10 - E03.9) FT4 in ideal range continue tirosint 88 mcg daily. FT3 very low range and patient having fatigue in afternoon- will uptitrate liothyronine to 10 mcg in afternoon and she is aware she can slowly titrate up to 25 mcg in afternoon until feeling improvement. 05/07/2024 Nonscarring hair loss, unspecified (ICD-10 - L65.9) Send for testosterone and DHT levels along with iron to screen for secondary causes of hair loss. 08/16/2024 Obesity, unspecified (ICD-10 - E66.9) 08/16/2024 Dietary counseling and surveillance (ICD-10 - Z71.3) 09/10/2024 Hyperlipidemia, unspecified (ICD-10 - E78.5) 09/10/2024 Hypothyroidism, unspecified (ICD-10 - E03.9) 08/16/2024 Hypothyroidism, unspecified (ICD-10 - E03.9) 09/10/2024 Essential (primary) hypertension (ICD-10 - I10) 08/16/2024 Hyperlipidemia, unspecified (ICD-10 - E78.5) 08/16/2024 Palpitations (ICD-10 - R00.2) 12/21/2023 Other Spent 45 minutes preparing to see the patient (ex review of tests/chart), obtaining and / or reviewing separately obtained history, performing a medically appropriate examination and/or evaluation, counseling and educating the patient/family/health care manager, ordering medications, tests, or procedures, referring and communicating with other health skin care consultant, documenting clinical information in the electronic or other health record, independently interpreting results and communicating results to the patient/family/health care manager and care coordinating patient plan. Patient alert and oriented x 4 and aware of discussion noted above and in agreeance to plan in management of hypothyroidism, breast ca history along with fatigue workup. Due to the nature of telemedicine, the [...] were discussed and all questions were answered. 04/11/2024 Other Spent 25 minutes preparing to see the patient (ex review of tests/chart), obtaining and / or reviewing separately obtained history, performing a medically appropriate examination and/or evaluation, counseling and educating the patient/family/health care manager, ordering medications, tests, or procedures, referring and communicating with other health skin care consultant, documenting clinical information in the electronic or other health record, independently interpreting results and communicating results to the patient/family/health care manager and care coordinating patient plan. Patient alert and oriented x 4 and aware of discussion noted above and in agreeance to plan in management of dyslipidemia and hypothyroidism. Due to the nature of telemedicine, the [...] were discussed and all questions were answered. LABS TO BE MAILED TO PATIENT 05/07/2024 Other Spent 25 minutes preparing to see the patient (ex review of tests/chart), obtaining and / or reviewing separately obtained history, performing a medically appropriate examination and/or evaluation, counseling and educating the patient/family/health care manager, ordering medications, tests, or procedures, referring and communicating with other health skin care consultant, documenting clinical information in the electronic or other health record, independently interpreting results and communicating results to the patient/family/health care manager and care coordinating patient plan. Patient alert and oriented x 4 and aware of discussion noted above and in agreeance to plan in management of hypothyroidism and workup for hair loss. Due to the nature of telemedicine, the [...] were discussed and all questions were answered. 08/16/2024 Other Assessment and Plan: 1. Palpitations [...] to Ativan (Lorazepam) - Patient to inform pen rider about propranolol prescription 5. Cardiology follow-up - Patient has appointments with pen rider Dr. Romain Washburn and Sue Miller - Continue monitoring heart health and addressing any concerns with specialists 6. Medication refill and inventory - Patient has sufficient supply of Tirosint and additional 100 mcg dosage if needed - Propranolol prescription sent to [facility] for patient pick-up Spent 15 minutes preventative [...] examination and/or evaluation, counseling and educating the patient/family/health care manager, ordering medications, tests, or procedures, referring and communicating with other health skin care consultant, documenting clinical information in the electronic or other health record, independently interpreting results and communicating results to the patient/family/health care manager and care coordinating patient plan. Patient alert [...] were discussed and all questions were answered. 09/10/2024 Other Assessment and Plan: Palpitations Noted improvement in palpitations since the last visit. Continue to monitor symptoms. Hypothyroidism Currently on Tirosint 88 mcg and T3 5 mcg. TSH levels increased; however, T4 and T3 levels remain within the normal range. Consideration for increasing T3 dosage to 10 mcg on alternate days if afternoon fatigue persists. Prescription for Tirosint refilled. Cholesterol Increase in cholesterol levels observed, though HDL levels are favorable and the cholesterol ratio is within an acceptable range. Advise the continuation of a healthy diet, regular exercise, and lifestyle modifications. Plan to recheck the lipid panel in three months. Blood Pressure Adjusted losartan dosage to 50 mg daily (25 mg morning and evening) in response to elevated blood pressure readings. Continue to monitor blood pressure and assess the effectiveness of medication adjustments. Weight Management Weight remains stable at 161 lbs. Encourage ongoing exercise and healthy eating habits. Continue to monitor weight and consider discussing potential weight loss medications as needed. Cardiac Risk Assessment Noted family history of heart disease; patient plans to consult a pen rider in October. A CT calcium score may be considered for further risk assessment. Continue to monitor cholesterol levels and blood pressure. Upcoming Appointments and Tests Patient has scheduled appointments with other providers and an MRI. Recommend stress management techniques to help minimize fluctuations in cortisol and cholesterol levels. Follow-up:Schedule a follow-up appointment post-CT calcium score results, anticipated in November.Plan to email blood work results to the patient.Continue to monitor thyroid function, cholesterol, and blood pressure levels. Spent 25 minutes preparing to see the patient (ex review of tests/chart), obtaining and / or reviewing separately obtained history, performing a medically appropriate examination and/or evaluation, counseling and educating the patient/family/health care manager, ordering medications, tests, or procedures, referring and communicating with other health skin care consultant, documenting clinical information in the electronic or other health record, independently interpreting results and communicating results to the patient/family/health care manager and care coordinating patient plan. Patient alert and oriented x 4 and aware of discussion noted above and in agreeance to plan in management of hypothyroidism, dyslipidemia, vitamin D def, and anxiety/improved. Due to the nature of telemedicine, the [...] all questions were answered. Plan Of Treatment Pending Test Test Name Order Date VITAMIN B12/FOLATE, SERUM PANEL 11/10/19 24 Insurance Providers Payer Name Payer Address Payer Phone Subscriber Number Group Number Insured Name Patient Relationship to Insured Coverage Start Date Coverage End Date [employer] [address] [place] [phone] [id number] Katie Donald Self - patient is the insured Medical (General) History Medical History History ICD Code hypothyroidism hypertension
--- OUTSIDE RECORDS SUMMARY | 2024-12-11 23:48 | XMS_ITS | Encounter Summary ---
Author Organization [facility] Address [address] [place] [address] Care Team Providers Care Chief Client Officer Name Role Phone Andriy Burgos MD Primary Care Provider [phone] Reason for Visit * Diagnostic Imaging (Routine) - Closed Specialty Diagnoses / Procedures Referred By Contac t Referred To Contact Procedures Breast Imaging Screening Outside Reference Transcribed Order, Provider Referral ID Status Reason Start Date Expiration Date Visits Re quested Visits Authorized [id number] Closed 08/08/2023 09/06/2024 1 1 Encounter Details Date Type Department Care Team (Late st Contact Info) Description 10/23/2020 Hospital Encounter [facility] [address] [place] [id number] Social History Tobacco Use Types Packs/Day [...] on file Legal Sex Female 12:53 AM YIELD IMPROVEMENT ENGINEER Gender Identity Not on file Sexual Orientation Not on file documented as of this encounter Functional Status * Audit-C Score Answer Date of Assessment Author 1 09/25/2023 6:42 AM YIELD IMPROVEMENT ENGINEER Shaylee Herrera, EDDIE * Question Answer Date of Assessment Author Q1: How often do you have a drink containing alcohol? 2-3 times a week 11/01/2023 2:10 PM YIELD IMPROVEMENT ENGINEER Lillie Grissom , EDDIE Q2: How many drinks containing alcohol do you have on a typical day when you are drinking? 3 or 4 11/03/2023 2:57 PM YIELD IMPROVEMENT ENGINEER Mary Anne Marshall Q3: How often do you have six or more drinks on one occasion? Weekly 11/03/2023 2:57 PM YIELD IMPROVEMENT ENGINEER Mary Anne Marshall documented as of this encounter Plan of Treatment Not on file documented as of this encounter Procedures Procedure Name Priority Date/Time Associated Diagnosis Comments BREAST IMAGING MG SCREENING OUTSIDE REFERENCE Routine 10/23/2020 12:00 AM YIELD IMPROVEMENT ENGINEER documented in this encounter Results * Breast Imaging Screening Outside Reference (10/23/2020 12:00 AM YIELD IMPROVEMENT ENGINEER) Impressions [facility] - 08/08/2023 10:07 AM YIELD IMPROVEMENT ENGINEER These images are for Reference purposes only and have not been reviewed by [facility]. There will be no report generated by a [facility] Radiologist. Narrative [facility] - 08/08/2023 10:07 AM YIELD IMPROVEMENT ENGINEER EXAMINATION: Images For Reference Purposes Only us Provider Transcribed Order IMG MAMMO PROCEDURES Final Result [facility] documented in this encounter Visit Diagnoses Not on filedocumented in this encounter Care Teams Chief Client Officer Relationship Specialty Start Date End Date Andriy Burgos MD [address] [place] [id number] PCP - General 03/03/11 11/04/21 documented as of this encounter
--- OUTSIDE RECORDS SUMMARY | 2024-12-11 23:48 | XMS_ITS | Encounter Summary ---
Author Organization [facility] Healthcare Address [address] [place] [address] Care Team Providers Care Rnp Name Role Phone Andriy Burgos MD Primary Care Provider Reason for Visit * Diagnostic Imaging (Routine) - Closed Specialty Diagnoses / Procedures Referred By Contac t Referred To Contact Procedures Breast Imaging Screening Outside Reference Transcribed Order, Provider Referral ID Status Reason Start Date Expiration Date Visits Re quested Visits Authorized [id number] Closed 08/08/2023 09/06/2024 1 1 Encounter Details Date Type Department Care Team (Late st Contact Info) Description 09/23/2019 Hospital Encounter [facility] [address] [place] [id number] Social History Tobacco Use Types Packs/Day [...] on file Legal Sex Female 12:53 AM CHIEF DEPUTY CORONER Gender Identity Not on file Sexual Orientation Not on file documented as of this encounter Functional Status * Audit-C Score Answer Date of Assessment Author 1 09/25/2023 6:42 AM CHIEF DEPUTY CORONER Shaylee Herrera RN * Question Answer Date of Assessment Author Q1: How often do you have a drink containing alcohol? 2-3 times a week 11/01/2023 2:10 PM CHIEF DEPUTY CORONER Lillie Grissom , EDDIE Q2: How many drinks containing alcohol do you have on a typical day when you are drinking? 3 or 4 11/03/2023 2:57 PM CHIEF DEPUTY CORONER Mary Anne Marshall Q3: How often do you have six or more drinks on one occasion? Weekly 11/03/2023 2:57 PM CHIEF DEPUTY CORONER Mary Anne Marshall documented as of this encounter Plan of Treatment Not on file documented as of this encounter Procedures Procedure Name Priority Date/Time Associated Diagnosis Comments BREAST IMAGING MG SCREENING OUTSIDE REFERENCE Routine 09/23/2019 12:00 AM CHIEF DEPUTY CORONER documented in this encounter Results * Breast Imaging Screening Outside Reference (09/23/2019 12:00 AM CHIEF DEPUTY CORONER) Impressions [facility] - 08/08/2023 10:04 AM CHIEF DEPUTY CORONER These images are for Reference purposes only and have not been reviewed by [facility]. There will be no report generated by a [facility] Radiologist. Narrative [facility] - 08/08/2023 10:04 AM CHIEF DEPUTY CORONER EXAMINATION: Images For Reference Purposes Only us Provider Transcribed Order IMG MAMMO PROCEDURES Final Result [facility] documented in this encounter Visit Diagnoses Not on filedocumented in this encounter Care Teams Rnp Relationship Specialty Start Date End Date Andriy Burgos MD [address] [place] [id number] PCP - General 03/03/11 11/04/21 documented as of this encounter
--- OUTSIDE RECORDS SUMMARY | 2024-12-11 23:48 | XMS_ITS | Encounter Summary ---
Author Organization [facility] Healthcare Address [address] [place] [address] Care Team Providers Care English Teacher Name Role Phone Andriy Burgos MD Primary Care Provider [phone] Reason for Visit * Diagnostic Imaging (Routine) - Closed Specialty Diagnoses / Procedures Referred By Contac t Referred To Contact Procedures Breast Imaging US Outside Reference Transcribed Order, Provider Referral ID Status Reason Start Date Expiration Date Visits Re quested Visits Authorized [id number] Closed 08/08/2023 09/06/2024 1 1 Encounter Details Date Type Department Care Team (Late st Contact Info) Description 08/07/2018 12:05 AM ERADICATOR Hospital Encounter [facility] [address] [place] [phone] Social History Tobacco Use Types Packs/Day Years [...] on file Legal Sex Female 12:53 AM ERADICATOR Gender Identity Not on file Sexual Orientation Not on file documented as of this encounter Functional Status * Audit-C Score Answer Date of Assessment Author 1 09/25/2023 6:42 AM ERADICATOR Shaylee Herrera, EDDIE * Question Answer Date of Assessment Author Q1: How often do you have a drink containing alcohol? 2-3 times a week 11/01/2023 2:10 PM ERADICATOR Lillie Grissom , EDDIE Q2: How many drinks containing alcohol do you have on a typical day when you are drinking? 3 or 4 11/03/2023 2:57 PM ERADICATOR Mary Anne Marshall Q3: How often do you have six or more drinks on one occasion? Weekly 11/03/2023 2:57 PM ERADICATOR Mary Anne Marshall documented as of this encounter Plan of Treatment Not on file documented as of this encounter Procedures Procedure Name Priority Date/Time Associated Diagnosis Comments BREAST IMAGING US OUTSIDE REFERENCE Routine 08/07/2018 12:05 AM ERADICATOR documented in this encounter Results * Breast Imaging US Outside Reference (08/07/2018 12:05 AM ERADICATOR) Impressions [facility] - 08/08/2023 10:11 AM ERADICATOR These images are for Reference purposes only and have not been reviewed by [facility]. There will be no report generated by a [facility] Radiologist. Narrative [facility] - 08/08/2023 10:11 AM ERADICATOR EXAMINATION: Images For Reference Purposes Only us Provider Transcribed Order IMG MAMMO PROCEDURES Final Result [facility] documented in this encounter Visit Diagnoses Not on filedocumented in this encounter Care Teams English Teacher Relationship Specialty Start Date End Date Andriy Burgos MD [address] [place] [id number] PCP - General 03/03/11 11/04/21 documented as of this encounter
--- OUTSIDE RECORDS SUMMARY | 2024-12-11 23:48 | XMS_ITS | Encounter Summary ---
Author Organization [facility] Healthcare Address [address] [place] [address] Care Team Providers Care Physician'S Aide Name Role Phone Andriy Burgos MD Primary Care Provider [phone] Reason for Visit * Diagnostic Imaging (Routine) - Closed Specialty Diagnoses / Procedures Referred By Contac t Referred To Contact Procedures Breast Imaging US Outside Reference Transcribed Order, Provider Referral ID Status Reason Start Date Expiration Date Visits Re quested Visits Authorized [id number] Closed 08/08/2023 09/06/2024 1 1 Encounter Details Date Type Department Care Team (Late st Contact Info) Description 09/23/2019 12:05 AM SUPERVISOR MOLD CLEANING AND STORAGE Hospital Encounter [facility] [address] [place] [phone] Social History Tobacco Use Types Packs/Day [...] on file Legal Sex Female 12:53 AM SUPERVISOR MOLD CLEANING AND STORAGE Gender Identity Not on file Sexual Orientation Not on file documented as of this encounter Functional Status * Audit-C Score Answer Date of Assessment Author 1 09/25/2023 6:42 AM SUPERVISOR MOLD CLEANING AND STORAGE Shaylee Herrera, EDDIE * Question Answer Date of Assessment Author Q1: How often do you have a drink containing alcohol? 2-3 times a week 11/01/2023 2:10 PM SUPERVISOR MOLD CLEANING AND STORAGE Lillie Grissom , EDDIE Q2: How many drinks containing alcohol do you have on a typical day when you are drinking? 3 or 4 11/03/2023 2:57 PM SUPERVISOR MOLD CLEANING AND STORAGE Mary Anne Marshall Q3: How often do you have six or more drinks on one occasion? Weekly 11/03/2023 2:57 PM SUPERVISOR MOLD CLEANING AND STORAGE Mary Anne Marshall documented as of this encounter Plan of Treatment Not on file documented as of this encounter Procedures Procedure Name Priority Date/Time Associated Diagnosis Comments BREAST IMAGING US OUTSIDE REFERENCE Routine 09/23/2019 12:05 AM SUPERVISOR MOLD CLE[employer]ING [employer] STORAGE documented in this encounter Results * Breast Imaging US Outside Reference (09/23/2019 12:05 AM SUPERVISOR MOLD CLEANING AND STORAGE) Impressions [facility] - 08/08/2023 10:12 AM SUPERVISOR MOLD CLEANING AND STORAGE These images are for Reference purposes only and have not been reviewed by [facility]. There will be no report generated by a [facility] Radiologist. Narrative [facility] - 08/08/2023 10:12 AM SUPERVISOR MOLD CLEANING AND STORAGE EXAMINATION: Images For Reference Purposes Only us Provider Transcribed Order IMG MAMMO PROCEDURES Final Result [facility] documented in this encounter Visit Diagnoses Not on filedocumented in this encounter Care Teams Physician'S Aide Relationship Specialty Start Date End Date Andriy Burgos MD [address] [place] [address] PCP - General 03/03/11 11/04/21 documented as of this encounter
--- OUTSIDE RECORDS SUMMARY | 2024-12-11 23:48 | XMS_ITS | Encounter Summary ---
Author Organization [facility] Address [address] [place] [address] Phone Care Team Providers Care Instrument Tester Name Role Phone Andriy Burgos MD Unavailable [phone] Melani Mclean MD Unavailable [phone] Rajni Jimenez MD Unavailable [phone] Kevin Ryder MD PhD Unavailable Sue Thompson Primary Care Pr ovider Encounter Details Date Type Department Care Team (Late st Contact Info) Description 11/22/2024 Results Follow-Up [facility] Urology [address] [facility] [address] [place] [address] Melani Mclean MD [facility] [address] [phone] Social History Tobacco Use Types Packs/Day Years [...] on file Legal Sex Female 12:53 AM DIGESTER OPERATOR Gender Identity Not on file Sexual Orientation Not on file documented as of this encounter Plan of Treatment Not on file documented as of this encounter Visit Diagnoses Not on filedocumented in this encounter Care Teams Instrument Tester Relationship Specialty Start Date End Date Sue Thompson PA [address] [facility] [address] [place] [address] PCP - General Physician Business Team Leader 11/13/24 Andriy Burgos MD [address] [place] [address] 11/05/21 Melani Mclean MD [address] [address] Surgeon Surgical Oncology 09/25/23 Rajni Jimenez MD [address] [place] [address] Radiation Oncologist Radiation Oncology 10/31/23 Kevin yRder MD PhD [address] [place] [address] Medical Oncologist/High School Hvac R Instructor Medical Oncology 11/01/23 documented as of this encounter
--- OUTSIDE RECORDS SUMMARY | 2024-12-11 23:48 | XMS_ITS | Encounter Summary ---
Author Organization [facility] Healthcare Address [address] [place] [address] Care Team Providers Care Wedding Day Coordinator Name Role Phone Andriy Burgos MD Primary Care Provider [phone] Reason for Visit * Diagnostic Imaging (Routine) - Closed Specialty Diagnoses / Procedures Referred By Contac t Referred To Contact Procedures Breast Imaging US Outside Reference Transcribed Order, Provider Referral ID Status Reason Start Date Expiration Date Visits Re quested Visits Authorized [id number] Closed 08/08/2023 09/06/2024 1 1 Encounter Details Date Type Department Care Team (Late st Contact Info) Description 03/05/2019 Hospital Encounter [facility] [address] [place] [phone] Social History Tobacco Use Types Packs/Day [...] on file Legal Sex Female 12:53 AM PROJECT ADMINISTRATIVE ASSISTANT Gender Identity Not on file Sexual Orientation Not on file documented as of this encounter Functional Status * Audit-C Score Answer Date of Assessment Author 1 09/25/2023 6:42 AM PROJECT ADMINISTRATIVE ASSISTANT Shaylee Herrera, EDDIE * Question Answer Date of Assessment Author Q1: How often do you have a drink containing alcohol? 2-3 times a week 11/01/2023 2:10 PM PROJECT ADMINISTRATIVE ASSISTANT Lillie Grissom , EDDIE Q2: How many drinks containing alcohol do you have on a typical day when you are drinking? 3 or 4 11/03/2023 2:57 PM PROJECT ADMINISTRATIVE ASSISTANT Mary Anne Marshall Q3: How often do you have six or more drinks on one occasion? Weekly 11/03/2023 2:57 PM PROJECT ADMINISTRATIVE ASSISTANT Mary Anne Marshall documented as of this encounter Plan of Treatment Not on file documented as of this encounter Procedures Procedure Name Priority Date/Time Associated Diagnosis Comments BREAST IMAGING US OUTSIDE REFERENCE Routine 03/05/2019 12:00 AM CDT documented in this encounter Results * Breast Imaging US Outside Reference (03/05/2019 12:00 AM CDT) Impressions [facility] - 08/08/2023 12:38 PM PROJECT ADMINISTRATIVE ASSISTANT These images are for Reference purposes only and have not been reviewed by [facility]. There will be no report generated by a [facility] Radiologist. Narrative [facility] - 08/08/2023 12:38 PM PROJECT ADMINISTRATIVE ASSISTANT EXAMINATION: Images For Reference Purposes Only us Provider Transcribed Order IMG MAMMO PROCEDURES Final Result [facility] documented in this encounter Visit Diagnoses Not on filedocumented in this encounter Care Teams Wedding Day Coordinator Relationship Specialty Start Date End Date Andriy Burgos MD [address] [place] [id number] PCP - General 03/03/11 11/04/21 documented as of this encounter
--- OUTSIDE RECORDS SUMMARY | 2024-12-11 23:48 | XMS_ITS | Data Portability ---
[facility] Address [address] [place] [address] Care Team Providers Care Debt Counselor Name Role Phone STEPHANIE SNIDER Primary Care Provider Unavailab le Assessment No assessment recorded. Plan of Treatment Reminders Order Date Submit Date Provider Last Modified By Organization Details Last Modified Time Details Appointments ANY 15 025 01:30PM DEMARIO Yanes Not available Not available Not available Lab None record ed. Referral None record ed. Procedures None record ed. Surgeries None record ed. Imaging None record ed. Medication Orders None record ed. Patient TargetsNo targets recorded. Patient Instructions Encounter Date Encounter Id Patient Instructions Last Modified By Organization Details Last Modified Time 10/02/2024 [id number] A healthy lifestyle: care instructions [email or web address] Not available 10/02/2024 16:59:09 Reason for Referral None Reported. 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 Active 2024 DEMARIO Yanes Attn: Stanley gonzalez,[address] [place], [address] [place] [address] 08:41:50 Anxiety 11634227 Active 2024 DEMARIO Yanes Attn: Stanley gonzalez,[address] [facility], [place], [address], [facility] 08:41:56 Benign essential hypertension 4924738 Active 2024 DEMARIO Yanes Attn: Stanley gonzalez,[address] [facility], [place], [address], [facility] 08:42:16 Overweight 379535348 Active 2024 DEMARIO Yanes Attn: Stanley gonzalez,[address] [facility], [place], [address], [facility] 08:42:24 Long-term drug therapy Active 2024 DEMARIO Yanes Attn: Stanley gonzalez,[address] [facility], [place], [address], [facility] 08:42:30 Vitamin B12 deficiency (non anemic) 64387310 Active 2024 DEMARIO Yanes Attn: Stanley gonzalez,[address] [facility], [place], [address], [facility] 08:42:46 Problem Notes None recorded. Procedures Surgical History Date Name Laterality Status Provider Name and Address Organization Details Recorded Time Breast Surgery completed Vianca Courtney MA [place] 10/02/2024 17:16:59 Imaging Results None recorded. Procedure Notes None recorded. Medical Equipment None Reported. Allergies No known drug allergies Medications Name Sig Start Date Stop Date Status Note LastModified by Organization Details LastModified Time losartan 50 mg tablet Take 1 tablet every day by oral route for 90 days. active Not Available Not Available No t Available buspirone 5 mg tablet Take 1 tablet as needed by oral route for 30 days. active Not Available Not Available No t Available liothyronin e 5 mcg tablet Take 1 tablet every day by oral route for 90 days. active Not Available Not Available No t Available propranolol 10 mg tablet TAKE 1 TABLET BY MOUTH ON AN EMPTY STOMACH EVERY 12 HOURS NEEDED FOR HEART RATE OVER 90BPM 10/02 completed Not Available Not Available Not Available lorazepam 0.5 mg tablet Take 1 tablet every day by oral route for 30 days. active Not Available Not Available No t Available cyanocobala min (vit B-12) 1,000 mcg/mL injection solution INJECT 1 ML UNDER THE SKIN EVERY 2 WEEKS active Not Available Not Available No t Available lisinopril 10 mg tablet TAKE 1 TABLET BY MOUTH TWICE DAILY 10/02 completed Not Available Not Available Not Available losartan 25 mg tablet Take 1 tablet every day by oral route for 90 days. 10/02 completed Not Available Not Available Not Available insulin syringe U-100 with needle 1 mL 31 gauge x 01/10 USE ONCE WEEKLY active Not Available Not Available No t Available lorazepam 1 mg tablet Take 1 tablet every day by oral route for 10 days. active Not Available Not Available No t Available diazepam 5 mg tablet TAKE 1 TABLET BY MOUTH 1 HOUR PRIOR TO TEST. MAY REPEAT 1 TABLET TIME OF ARRIVAL NEEDED. 10/02 completed Not Available Not Available Not Available bupropion HCl XL 150 mg 24 hr tablet, extended release TAKE 1 TABLET BY MOUTH EVERY MORNING 10/02 completed Not Available Not Available Not Available escitalopra m 5 mg tablet TAKE 1 TABLET BY MOUTH EVERY DAY WITH FOOD FOR 2 WEEKS. INCREASE TO 2 BY MOUTH EVERY DAY WITH FOOD 10/02 completed Not Available Not Available Not Available Tirosint 100 mcg capsule TAKE ONE Capsule BY MOUTH EVERY MORNING 10/02 completed Not Available Not Available Not Available Tirosint 88 mcg capsule Take 1 capsule every day by oral route. active Not Available Not Available No t Available Vitals Date Recorded Body weight Body mass index (BMI) Body height Oxygen saturation Oxygen saturation in Arterial blood by Pulse oximetry Heart rate Systolic blood pressure Diastolic blood pressure Provider Name and Address Organization Details Last Updated DateTime 21280.7 g 26.6 kg/m2 170.18 cm 100 % 100 % 90 /min 140 mm[Hg] 82 mm[Hg] Vinaca Courtney MA [place] - [facility], [facility]–1983 16:20:09 Date Recorded Respiratory rate Systolic blood pressure Diastolic blood pressure Provider Name and Address Organization Details Last Updated DateTime 10/02/2024 16 /min 148 mm[Hg] 80 mm[Hg] DEMARIO Yanes Attn: Accounting, [address] [place], [address], [place] [facility] 10/02/2024 16:57:01 Social History Question Answer Notes LastModified by Organizat ion Details LastModified Time Tobacco Smoking Status Former Smoker quit in 2003 LIBBY T[place], [place] [facility] 10/02/2024 16:17:48 Do You Have An Advance Directive? Yes Information not available 10/02/2024 What Is Your Level Of Alcohol Consumption? Occasional Rare Information not available 10/02/2024 Are You Blind Or Do You Have Difficulty Seeing? No Glasses Information not available 10/02/2024 What Is Your Level Of Caffeine Consumption? Occasional Coffee Information not available 10/02/2024 In The 14 Days Before Symptom Onset, Have You Had Close Contact With A Laboratory-confir med COVID-19 While That Case Was Ill? No Information not available 10/02/2024 In The 14 Days Before Symptom Onset, Have You Had Close Contact With A Person Who Is Under Investigation For COVID-19 While That Person Was Ill? No Information not available 10/02/2024 Have You Been To An Area Known To Be High Risk For COVID-19? No Information not available 10/02/2024 Are You Currently Employed? Yes Information not available 10/02/2024 Are You Deaf Or Do You Have Serious Difficulty Hearing? 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 10/02/2024 Information not available 10/02/2024 What Is Your Current Pack Years? 20-29packyear s Information not available 10/02/2024 Do You Use Your Seat Belt Or Car Seat Routinely? Yes Information not available 10/02/2024 Do You Have Smoke And Carbon Monoxide Detectors In Your Home? Yes Information not available 10/02/2024 How Much Tobacco Do You Smoke? No Information not available 10/02/2024 Do You Use Any Illicit Or Recreational Drugs? No Information not available 10/02/2024 Do You Use Sunscreen Routinely? Yes Information not available 10/02/2024 Has Tobacco Cessation Counseling Been Provided? No Information not available 10/02/2024 Do You Or Have You Ever Used Any Other Forms Of Tobacco Or Nicotine? No Information not available 10/02/2024 Sex: Unknown Functional Status Question Answer Note LastModified by Organizat ion Details LastModified Time Are you able to care for yourself? Yes Information not available 10/02/2024 What is your exercise level? Moderate 30 -60 minutes a day / cardio/ strength training Information not available 10/02/2024 Mental Status None recorded. Family History Relationship Description Onset Age of this Age Resolved Age Notes LastModified by Organization Details LastModified Time Mother Family history of breast cancer [email or web address] Not available 2024 17:17:27 Mother Disorder of thyroid gland [email or web address] Not available 2024 17:17:32 Mother Osteoporosis [email or web address] Not avai lable 10/02/2024 17:17:42 Mother Malignant tumor of ovary [email or web address] Not available 2024 17:17:48 Father Heart disease [email or web address] Not available 2024 17:17:36 Medical History Condition Response Coronary Artery Disease N Other N Atrial Fibrillation N High Blood Pressure Y Kidney or Bladder Problems N Thyroid Problems Y GI Problems N Depression N COPD N Blood Clots N Have you had a mammogram in the last yea r? N Skin Problems N Anemia N Heart Attack (VT) N Anxiety Disorder Y Diabetes N Muscle, Joint, or Bone Problems N Seizures/Epilepsy N Have you had a colonoscopy in the last 1 0 years? N Acid Reflux (GERD) N Cancer Y Stroke N Asthma N Allergies N Have you had a PSA blood test in the las t year? N High Cholesterol N Hepatitis N Liver Disease N Headaches N Heart Failure N Osteoporosis N Gynecological History Statement/Question Response Menses Monthly N Obstetrics History GPAL:G 0 P 0 0 0 0 Past Encounters Encounter ID Performer Location Encounter Start Date Encounter Closed Date Diagnosis/Indication Diagnosis SNOMED-CT Code Diagnosis ICD10 Code Diagnosis Note [id number] DEMARIO Yanes [facility] [address] [place] [address] 10/02/2024 15:44:16 10/03/2024 10:26:26 Body mass index 25-29 - overweight 817239203 Z68.26 BMI is 26.6 Overweight 181422827 E66 .3 No concerns with her BMI at this time Hypothyroi dism due to Frieda's thyroiditis 679105026 E06.3 Continue Tirosint 88mcg daily and liothyroni ne 5 mcg daily. Patient is up-to-date on labs with Dr. Minnie Bloom Anxiety 88946845 F41.9 try taking buspar 5mg every morning for now. P.r.n. lorazepam is also available on her med list Benign ess ential hypertension 0425814 I10 stable on losartan 50mg daily all home numbers are great on review. Long-term drug therapy 606647189 Z79.891 Labs are currently up-to-date with endocrinol ognash Vitamin B1 2 deficiency (non anemic) 91401742 E53.8 Patient takes vitamin B12 injection 1000 mcg every 2 weeks Health Concerns Section Related Observation LastModified by Organization Detai ls LastModified Time None Recorded Concern Status LastModified by Organization Details LastModified Time None Recorded Advance Directives Directive Y: Payers Encounter Date Sequence Insurance Name Policy Number Policy Damon Covered Member ID Damon Member ID Guarantor Name 10/02/2024 1 [facility] [id number] Krishan Donald [id number] 2 Katie Donald Notes Date Note Type Note Provider Name and Address Organization Details Recorded Time 10/02/19 25 text/htm l Anxiety/DepressionReported bypatient.Notes:For mild underlying anxiety patient has lorazepam she uses on a p.r.n. basis and she takes BuSpar 5 mg every morningHypertensionReported bypatient.Notes:Patient is taking losartan 50 mg daily for blood pressure managementThyroidReported bypatient.Quality:improving Duration:constant Onset/Timing:better Context:history of hypothyroidism Modifying Factors:medicationNotes:Hashimo to's thyroid. Patient is on Tirosint and liothyronine dual therapy. history breast cancer: 2022. invasive ductal cancer. Dr. Lee. MRI next month. right sided lumpectomy. 5 R.T. tx. Colonoscopy: never had one eye exam: [place] Dental exam: Dr. Santillan Chiropractor and Nutrition: Dr. Young Bilateral tinnitus: this causes much of her anxiety. then BP increases. Cardiology appt: Dr. Jones [facility]. DEMARIO Yanes Attn: Accounting,[address] [place] [address], [phone], [facility] 10/26/2024 08:47:03 OBGyn Episode No OBEpisode recorded.
--- OUTSIDE RECORDS SUMMARY | 2024-12-11 23:48 | XMS_ITS ---
Author Organization [facility] Address [address] [place] [address] Care Team Providers Care Franchise Business Consultant Name Role Phone Minnie Bloom Primary Care Provider REASON FOR VISIT lab review, EMAIL PLEASE Medications Medication SIG (Take, Route, Frequency, Duration) [...] review and pick correct strength-formulatio n from [employer] options. If intended option is not shown, discontinue and re-order from Quick Search* Active Propranolol HCl 10 MG 1 tablet on an empty stomach Orally every 12 hrs as needed for HR over 90 bpm for 30 days 08/16/2024 Active Problems Problem Type SNOMED Code ICD Code Onset Dates Problem Status W/U Status Risk Notes Problem Essential hypertension (51243809) Essential (primary) hypertension (I10) Active confirmed Vital Signs Blood pressure systolic 120 mm Hg 09/10/19 25 Blood pressure diastolic 72 mm Hg 025 Heart Rate 62 /min 09/10/2024 Respiratory Rate 12 /min 09/10/2024 Height 67 in 09/10/2024 Weight 161 lbs 09/10/2024 BMI 25.21 kg/m2 09/10/2024 Encounters Encounter Location Date Provider Diagnosis [facility] - Minnie Bloom [address] [place] [address] 09/10/2024 Minnie Bloom Hypothyroidism, unspecified E03.9 ; Hyperlipidemia, unspecified E78.5 and Essential (primary) hypertension I10 Assessments Encounter Date Diagnosis (ICD Code) Assessment Notes Treatment Notes Treatment Clinical Notes Section Notes 09/10/2024 Hypothyroidism, unspecified (ICD-10 - E03.9) 09/10/2024 Hyperlipidemia, unspecified (ICD-10 - E78.5) 09/10/2024 Essential (primary) hypertension (ICD-10 - I10) 09/10/2024 Other Assessment and Plan: Palpitations Noted [...] heart disease; patient plans to consult a timber supervisor in October. A CT calcium score may be considered for further risk assessment. Continue to monitor cholesterol levels and blood pressure. Upcoming Appointments and Tests Patient has scheduled appointments with other providers and an MRI. Recommend stress management techniques to help minimize fluctuations in cortisol and cholesterol levels. Follow-up:Javeir johnson follow-up appointment post-CT calcium score results, anticipated in November.Plan to email blood work results to the patient.Continue to monitor thyroid function, cholesterol, and blood pressure levels. Spent 25 minutes preparing to see the patient (ex review of tests/chart), obtaining and / or reviewing separately obtained history, performing a medically appropriate examination and/or evaluation, counseling and educating the patient/family/ca regiver, ordering medications, tests, or procedures, referring and communicating with other health rehab care assistant, documenting clinical information in the electronic or other health record, independently interpreting results and communicating results to the patient/family/ca regiver and care coordinating patient plan. Patient alert [...] Name Sig Start Date Stop Date Notes Tirosint 88 MCG 1 capsule in the mor leonie on an empty stomach Orally Once a day for 90 days 09/10/2024 Treatment Notes Assessment Notes Other Assessment and Plan: Palpitations Noted improvement [...] heart disease; patient plans to consult a timber supervisor in October. A CT calcium score may [...] procedures, referring and communicating with other health rehab care assistant, documenting clinical information in the electronic or [...] were answered. Next Appt Details Follow Up: 3 Months, Reason: labwork Progress Notes * Patsy DEL TOROOB:[birth year] (64 yo F)Acc No.[id number]:09/10/2024 Progress Notes Patient: Katie JOHNSTON Provider: Karli Bloom MD :[id number] A ge:64 Y S ex:Female Date:09/10/2024 Address:[address] [place] [address], [facility] Subjective: * Chief Complaints: * 1 . lab review, EMAIL PLEASE. * HPI: H ypothyroidism: 64 yo female calls in today to initiate telehealth visit to discuss progress and management of hypothyroidism, hyperlipidemia. Verbal consent provided by patient to proceed with this visit. This visit was performed in office via provider and patient located in primary care office with real time audio with video. At last visit in Jul we continued tirosint 88 mcg daily and liothyronine 10 mcg in afternoon. W e added propranolol as needed for palpitations and flutters. Violeta reports improvement in palpitations but experiences increased afternoon fatigue. Her TSH has increased, and T3 levels have decreased. She has adjusted her losartan dosage due to elevated blood pressure and has made lifestyle changes to address increased cholesterol levels. Despite regular exercise, she struggles with weight loss. She is managing stress related to upcoming MRI appointments with Valium. Dr. Bloom plans to monitor her thyroid, cholesterol, and blood pressure levels, and has suggested a potential increase in T3 dosage to address fatigue. Patient reports improvement in previously experienced palpitations, stating she hasn't had them since last consultation. She notes experiencing increased fatigue in the afternoons. The patient's TSH has increased, while T3 levels have decreased to 2.7. She is currently taking T-resin and Tirosint 88 mcg, along with T3 5 mcg at noon daily. Patient reports her blood pressure had been creeping up to the 170s. She has increased her losartan dosage to 50 mg daily, split into 25 mg in the morning and 25 mg in the evening. The patient's cholesterol levels have increased. Her most recent blood glucose was 85. She reports implementing lifestyle changes, including 50 minutes of daily exercise and dietary modifications such as increased fish consumption and reduced red meat intake. Her current weight is 161 lbs, down from 163 lbs. She expresses difficulty with weight loss despite exercise efforts. The patient is taking metformin for borderline blood sugar regulation. Patient reports experiencing stress related to upcoming MRI appointments, for which she uses Valium to manage anxiety. Medical History - Thyroid disorder - Borderline elevated blood sugar - Hypertension - Family history of heart disease (father had open heart surgery in mid-sixties) Current and Past Medications and Supplements - T-resin (Tirosint) 88 micrograms - T3 5 micrograms at noon - Losartan 50 mg daily (25 mg in the morning and 25 mg in the evening) - Metformin (dosage not specified) Social History - Exercise: engages in at least 50 minutes of exercise daily - Diet: recently changed diet to include more fish and less red meat - Living situation: lives with sister across the road - Stress: experiences stress related to MRI procedures, uses Valium to manage anxiety Review of Systems - Cardiovascular: No recent palpitations - Constitutional: Experiences afternoon fatigue sometimes. * ROS: C ONSTITUTIONAL: no w eight gain. n [...] xcessive body odor. n o p soriasis. E NDOCRINOLOGY: fatigue y es. n o [...] / adequate y es, y es. C ARDIOLOGY: no p alpitations. n o [...] o h eadaches. * Medical History: H ypothyroidism, Hypertension. * Medications: T aking Losartan Potassium 50 MG Tablet 1 tablet Orally Once a day , Taking Liothyronine Sodium 5 MCG Tablet 1 tab(s) orally once a day at noon , Notes to Pharmacist: only taking one at noon, Taking Tirosint 88 MCG (0.088 MG) CAPSULE TAKE ONE CAPSULE BY MOUTH EVERY DAY , Notes to Pharmacist: *Please review and pick correct strength-formulation from [employer] options. If intended option is not shown, discontinue and re-order from Quick Search*, Taking Propranolol HCl 10 MG Tablet 1 tablet on an empty stomach Orally every 12 hrs as needed for HR over 90 bpm Objective: * Vitals: R R:12, HR:62, BP:120/72, Ht: 67, Wt:161, BMI: 25.21. * P ast Orders: L ab:VITAMIN D, 25-HYDROXY, LC/MS/MS (Order Date - 08/26/2024) (Collection Date & Time - 08/26/2024 06:10 AM) Value Reference Range VITAMIN D, 25-OH, TOTAL 58 30-100 - ng/mL L ab:LIPID PANEL (Order Date - 08/26/2024) (Collection Date & Time - 08/26/2024 06:10 AM) Value Reference Range TRIGLYCERIDES 64 <150 - mg/dL CHOLESTEROL, TOTAL 278 H <200 - mg/dL HDL CHOLESTEROL 96 > OR = 50 - mg/dL LDL-CHOLESTEROL 166 H - mg/dL (calc) CHOL/HDLC RATIO 2.9 <5.0 - (calc) NON-HDL CHOLESTEROL 182 H <130 - mg/dL (calc) L ab:VITAMIN B12/FOLATE, SERUM PANEL (Order Date - 08/26/2024) (Collection Date & Time - 08/26/2024 06:10 AM) Value Reference Range FOLATE, SERUM 16.3 - ng/mL VITAMIN B12 1641 H 200-1100 - pg/mL L ab:CBC (INCLUDES DIFF/PLT) (Order Date - 08/26/2024) (Collection Date & Time - 08/26/2024 06:10 AM) Value Reference Range WHITE BLOOD CELL COUNT 4.5 3.8-10.8 - Th[place] nd/uL RED BLOOD CELL COUNT 4.64 3.80-5.10 - Million /uL HEMOGLOBIN 14.3 11.7-15.5 - g/dL HEMATOCRIT 43.7 35.0-45.0 - % MCV 94.2 80.0-100.0 - fL MCH 30.8 27.0-33.0 - pg MCHC 32.7 32.0-36.0 - g/dL RDW 12.0 11.0-15.0 - % PLATELET COUNT 246 140-400 - Thousand/u L NEUTROPHILS 49 - % ABSOLUTE NEUTROPHILS 2205 1881-0272 - cells/u L LYMPHOCYTES 35.1 - % ABSOLUTE LYMPHOCYTES 6419 104-5376 - cells/uL MONOCYTES 11.9 - % ABSOLUTE MONOCYTES 536 200-950 - cells/uL EOSINOPHILS 2.0 - % ABSOLUTE EOSINOPHILS 90 15-500 - cells/uL BASOPHILS 2.0 - % ABSOLUTE BASOPHILS 90 0-200 - cells/uL MPV 9.9 7.5-12.5 - fL L ab:T3, FREE (Order Date - 08/26/2024) (Collection Date & Time - 08/26/2024 06:10 AM) Value Reference Range T3, FREE 2.7 2.3-4.2 - pg/mL L ab:COMPREHENSIVE METABOLIC PANEL (Order Date - 08/26/2024) (Collection Date & Time - 08/26/2024 06:10 AM) Value Reference Range GLUCOSE 85 65-99 - mg/dL UREA NITROGEN (BUN) 17 7-25 - mg/dL CREATININE 0.75 0.50-1.05 - mg/dL BUN/CREATININE RATIO SEE NOTE: 6 - (calc) SODIUM 137 135-146 - mmol/L POTASSIUM 4.2 3.5-5.3 - mmol/L CHLORIDE 100 98-110 - mmol/L CARBON DIOXIDE 31 20-32 - mmol/L CALCIUM 9.3 8.6-10.4 - mg/dL PROTEIN, TOTAL 7.0 6.1-8.1 - g/dL ALBUMIN 4.5 3.6-5.1 - g/dL GLOBULIN 2.5 1.9-3.7 - g/dL (calc ) ALBUMIN/GLOBULIN RATIO 1.8 1.0-2.5 - (calc) BILIRUBIN, TOTAL 0.7 0.2-1.2 - mg/dL ALKALINE PHOSPHATASE 39 37-153 - U/L AST 12 10-35 - U/L ALT 15 6-29 - U/L EGFR 90 > OR = 60 - mL/min/1.73m2 L ab:T4, FREE (Order Date - 08/26/2024) (Collection Date & Time - 08/26/2024 06:10 AM) Value Reference Range T4, FREE 1.5 0.8-1.8 - ng/dL L ab:TSH (Order Date - 08/26/2024) (Collection Date & Time - 08/26/2024 06:10 AM) Value Reference Range TSH 5.11 H 0.40-4.50 - mIU/L * Examination: G eneral Examination: General n ormal, NAD, well nourished and hydrated, pleasant. Neck, thyroid : s upple. Assessment: * Assessment: 1. H ypothyroidism, unspecified - E03.9 (Primary) 2 . H yperlipidemia, unspecified - E78.5 3 . E ssential (primary) hypertension - I10 Plan: * Treatment: 2. O thers Notes: Assessment and Plan: Palpitations Noted improvement in [...] heart disease; patient plans to consult a timber supervisor in October. A CT calcium score may [...] procedures, referring and communicating with other health rehab care assistant, documenting clinical information in the electronic or [...] and all questions were answered. ? * Follow Up: 3 Months (Reason: labwork) * Billing Information: * Visit Code: 93993 Office Visit, Est Pt., Level 4. Modifiers: 95 * Procedure Codes: * S CUTTER Sign off status: Completed true * Provider: Karli Bloom MD Date: 0 09/10/2024 Generated for Micaelai ng/Fatonieg/eTransmitting on: 0 12/11/2024 09:31 AM CDT History and Physical Notes * HPI (History of Present Illness) Category Sub-Category Detail Notes Category Not es Hypothyroidism 64 yo female calls in today to initiate telehealth visit to discuss progress and management of hypothyroidism, hyperlipidemia. Verbal consent provided by patient to proceed with this visit. This visit was performed in office via provider and patient located in primary care office with real time audio with video. At last visit in Jul we continued tirosint 88 mcg daily and liothyronine 10 mcg in afternoon. We added propranolol as needed for palpitations and flutters. Violeta reports improvement in palpitations but experiences increased afternoon fatigue. Her TSH has increased, and T3 levels have decreased. She has adjusted her losartan dosage due to elevated blood pressure and has made lifestyle changes to address increased cholesterol levels. Despite regular exercise, she struggles with weight loss. She is managing stress related to upcoming MRI appointments with Juan Francisco. Dr. Bloom plans to monitor her thyroid, cholesterol, and blood pressure levels, and has suggested a potential increase in T3 dosage to address fatigue. Patient reports improvement in previously experienced palpitations, stating she hasn't had them since last consultation. She notes experiencing increased fatigue in the afternoons. The patient's TSH has increased, while T3 levels have decreased to 2.7. She is currently taking T-resin and Tirosint 88 mcg, along with T3 5 mcg at noon daily. Patient reports her blood pressure had been creeping up to the 170s. She has increased her losartan dosage to 50 mg daily, split into 25 mg in the morning and 25 mg in the evening. The patient's cholesterol levels have increased. Her most recent blood glucose was 85. She reports implementing lifestyle changes, including 50 minutes of daily exercise and dietary modifications such as increased fish consumption and reduced red meat intake. Her current weight is 161 lbs, down from 163 lbs. She expresses difficulty with weight loss despite exercise efforts. The patient is taking metformin for borderline blood sugar regulation. Patient reports experiencing stress related to upcoming MRI appointments, for which she uses Valium to manage anxiety. Medical History - Thyroid disorder - Borderline elevated blood sugar - Hypertension - Family history of heart disease (father had open heart surgery in mid-sixties) Current and Past Medications and Supplements - T-resin (Tirosint) 88 micrograms - T3 5 micrograms at noon - Losartan 50 mg daily (25 mg in the morning and 25 mg in the evening) - Metformin (dosage not specified) Social History - Exercise: engages in at least 50 minutes of exercise daily - Diet: recently changed diet to include more fish and less red meat - Living situation: lives with sister across the road - Stress: experiences stress related to MRI procedures, uses Valium to manage anxiety Review of Systems - Cardiovascular: No recent palpitations - Constitutional: Experiences afternoon fatigue sometimes Examination Category Sub-Category Detail Notes Category Not es General Examination Neck, thyroid : supple General normal, NAD, well no urished and hydrated, pleasant
--- OUTSIDE RECORDS SUMMARY | 2024-12-11 23:48 | XMS_ITS | Encounter Summary ---
Author Organization [facility] Healthcare Address [address] [place] [address] Care Team Providers Care Client Support Professional Name Role Phone Andriy Burgos MD Primary Care Provider [phone] Reason for Visit * Diagnostic Imaging (Routine) - Closed Specialty Diagnoses / Procedures Referred By Contac t Referred To Contact Procedures Breast Imaging Diagnostic Outside Reference Transcribed Order, Provider Referral ID Status Reason Start Date Expiration Date Visits Re quested Visits Authorized [id number] Closed 08/08/2023 09/06/2024 1 1 Encounter Details Date Type Department Care Team (Late st Contact Info) Description 08/07/2018 Hospital Encounter [facility] [address] [place] [id number] Social History Tobacco Use Types Packs/Day [...] on file Legal Sex Female 12:53 AM HEARING SCREENER Gender Identity Not on file Sexual Orientation Not on file documented as of this encounter Functional Status * Audit-C Score Answer Date of Assessment Author 1 09/25/2023 6:42 AM HEARING SCREENER Shaylee Herrera RN * Question Answer Date of Assessment Author Q1: How often do you have a drink containing alcohol? 2-3 times a week 11/01/2023 2:10 PM HEARING SCREENER Lillie Grissom , EDDIE Q2: How many drinks containing alcohol do you have on a typical day when you are drinking? 3 or 4 11/03/2023 2:57 PM HEARING SCREENER Mary Anne Marshall Q3: How often do you have six or more drinks on one occasion? Weekly 11/03/2023 2:57 PM HEARING SCREENER Mary Anne Marshall documented as of this encounter Plan of Treatment Not on file documented as of this encounter Procedures Procedure Name Priority Date/Time Associated Diagnosis Comments BREAST IMAGING MG DIAGNOSTIC OUTSIDE REFERENCE Routine 08/07/2018 12:00 AM HEARING SCREENER documented in this encounter Results * Breast Imaging Diagnostic Outside Reference (08/07/2018 12:00 AM HEARING SCREENER) Impressions [facility] - 08/08/2023 10:03 AM HEARING SCREENER These images are for Reference purposes only and have not been reviewed by [facility] Radiology. There will be no report generated by a [facility] Radiologist. Narrative [facility] - 08/08/2023 10:03 AM HEARING SCREENER EXAMINATION: Images For Reference Purposes Only us Provider Transcribed Order IMG MAMMO PROCEDURES Final Result [facility] documented in this encounter Visit Diagnoses Not on filedocumented in this encounter Care Teams Client Support Professional Relationship Specialty Start Date End Date Andriy Burgos MD [address] [place] [id number] PCP - General 03/03/11 11/04/21 documented as of this encounter
--- NOTE | 2024-12-11 23:50 | ECG_ITS ---
Test Date: 2024-12-11 23:59:26 Measurements Intervals [place] Rate: 141 P: 0 OR: 0 QRS: 14 QRSD: 78 T: 56 QT: 279 QTc: 427 Interpretive Statements ATRIAL FIBRILLATION WITH RAPID VENTRICULAR RESPONSE POSSIBLE RIGHT VENTRICULAR CONDUCTION DELAY ABNORMAL ECG No previous ECG available for comparison Electronically Signed On 12-12-2024 06:02:04 CDT by Yariel Hernandez D.O.
[2024-12-11 23:54] VITALS: BP 161/100; PULSE 128; RESP 15; TEMP 36.8; O2SAT 100
--- NOTE | 2024-12-12 00:12 | ED_ITS ---
HPI - Arrhythmia/Palpitations General Chief Complaint: Arrhythmia/Palpitations Stated Complaint: heart racing 144bpm , lightheaded Time Seen by Provider: 12/11/24 23:55 Source: patient Mode of arrival: ambulatory Limitations: no limitations History of Present Illness HPI narrative: Patient is 64-year-old female, with PMH of HTN, anxiety, hypothyroidism, who presents the ED with report of palpitations. Patient reports she was eating dinner tonight with her when she began feeling a fluttering in her chest. She states the symptoms lasted for a short time before resolving on its own. Symptoms then recurred when she was at home and she began feeling shaky, lightheaded, anxious. She then prompted here for further evaluation. She notes history of previous thyroid issues, hypothyroidism on levothyroxine, and states she has had intermittent brief episodes of fluttering for the past 1 year. She denies chest pain, shortness of breath, recent cough or cold symptoms, fevers, pain or swelling in her legs. Patient underwent cardiac stress testing today with Dr. Schumacher at [facility], which was normal. Related Data Home Medications ?Medication ?Instructions ?Recorded ?Confirmed ?Last Taken ?Type buspirone 5 mg tablet 5 mg PO DAILY PRN anxiety 08/31/23 08/23/24 Unknown History levothyroxine 88 mcg capsule 88 mcg PO DAILY 08/31/23 08/23/24 Unknown History (Tirosint) Allergies Allergy/AdvReac Type Severity Reaction Status Date / Time No Known Allergies Allergy Verified 12/11/24 23:45 Review of Systems 2 Review of Systems: All systems reviewed & are unremarkable except as noted in HPI. All systems reviewed & are unremarkable except as noted in HPI and below [facility] Past Medical History Medical History Essential (primary) hypertension History of breast cancer Palpitations Hypothyroidism Generalized anxiety disorder Surgical History Surgical History History of lumpectomy of right breast with sentinel lymph node excision 09/25/23 Family History Family History Mother Family history of osteoporosis Family history of blood dyscrasia Family history of atrial fibrillation Father Family history of Alzheimer's disease Family history of heart disease in male family member before age 55 Social History Social History Smoking status: Former smoker Second hand tobacco smoke exposure: No Smoking end date: 08/28/03 Alcohol intake: current Substance use: never Substance use type: does not use Do You Feel Safe in your Home?: Yes Lack of Transportation: No Lack of Food: Never True Current Housing: I Have Housing Concerned About Future Housing: No Difficulty Paying Gas/Electric Bills: No Difficulty Paying for Meds: No Currently Unemployed: No Education: Bachelor's Degree Difficulty w/ Childcare or Family Care: No Living arrangements: with family Occupation/Education: occupation Gender identity (if verbalized by the patient): Female Sexual Orientation (if Verbalized by the Patient): Straight or Heterosexual Exam 2 Narrative: GENERAL: Well appearing, well-nourished, non-toxic, in no acute distress. HEAD: Normocephalic, atraumatic. RESPIRATORY: Airway patent, respirations nonlabored. Clear to auscultation bilaterally, no rales, rhonchi, wheezing. CARDIOVASCULAR: Tachycardic with irregular rhythm without murmurs, rubs, or gallops. MUSCULOSKELETAL: Moves all extremities. No gross deformities. No peripheral edema. No calf tenderness. SKIN: Warm, dry, normal color. NEURO: A&O X3. Speech clear. Cranial nerves II-XII grossly intact. Steady gait. No ataxic movements. PSYCHIATRIC: Anxious. Normal interaction. Course Vital Signs Vital signs: Vital Signs Temperature 98.2 F 12/11/24 23:54 Pulse Rate 128 H 12/11/24 23:54 Respiratory Rate 15 12/11/24 23:54 Blood Pressure 161/100 H 12/11/24 23:54 Pulse Oximetry 100 12/11/24 23:54 Oxygen Delivery Room Air 12/11/24 23:54 Temperature 98.2 F 12/12/24 00:25 Pulse Rate 98 12/12/24 03:14 Respiratory Rate 17 12/12/24 03:14 Blood Pressure 123/92 H 12/12/24 03:14 Pulse Oximetry 99 12/12/24 03:14 Oxygen Delivery Room Air 04/16/25 23:54 MDM - Arrhythmia/Palpitations MDM Narrative Medical decision making narrative: Patient presented to ED with palpitations. Began tonight. Associated with lightheadedness, shakiness. Patient found to be in AFib with RVR upon arrival to the ED. Rates 120s to 160s. Patient denies any previous previous history of AFib. Denies chest pain. History of hypertension, hypothyroidism. On losartan, levothyroxine. Will give fluids and dose of metoprolol. Patient responded well to 5 mg of IV Lopressor. Rates now in the low 90s to low 100s. Will continue to monitor. Troponin undetectable. BNP within normal range. CXR interpreted by myself w/o acute findings. Cbc without leukocytosis or anemia. Stable electrolytes. Magnesium was slightly borderline, IV replacement given. Thyroid studies WNL. Patient has remained fairly rate controlled after initial Lopressor dose. Rates consistently under 110 BPM. Will discuss with Cardiology. Patient would prefer to go home. She is feeling improved. Patient sees Dr. Schumacher with Cardiology [facility] in [place]. She had an appointment today and negative stress test. CHADsVASC is 2 (1 point for female, 1 point for HTN). Discussed case with Dr. Interiano, Cardiology radiation control specialist @ [facility], agree with plan for D/C home, outpatient follow-up. Recommended to start patient on metoprolol XL 25 mg daily, have the patient monitor her heart rate and blood pressure tomorrow and call the office and they can make adjustments to medications as necessary. Did recommend Eliquis 5mg BID. Discussed these recommendations with patient. She is in agreement with the plan. Given 1st doses of Eliquis and metoprolol in the ED. She remains rate controlled and asymptomatic at this point. Discussed very strict return precautions and patient voiced understanding. She feels comfortable going home. at bedside in agreement as well. D/C in stable condition. Vital signs stable at time of D/C. Medical Records Attestation: I reviewed the patient's medical records. Lab Data Attestation: I reviewed the patient's lab results. 12/12/24 00:16 12/12/24 00:16 Labs: Lab Results 12/12/24 12/12/24 Range/Units 00:16 00:16 WBC 5.7 (4.5-10.0) K/mm3 RBC 4.41 (4.2-5.4) M/mm3 Hgb 13.5 (12.0-15.0) g/dL Hct 40.6 (37.0-47.0) % MCV 92.1 (80-100) fl MCH 30.6 (26-34) pg MCHC 33.3 (32-36) g/dl RDW 12.1 (11.5-14.5) % Plt Count 226 (150-375) k/mm3 MPV 9.5 (7.4-10.4) fl Immature Gran % (Auto) 1.4 H (0-0.5) % Neut % (Auto) 54.3 (45.5-73.1) % Lymph % (Auto) 30.7 (18.3-44.2) % [place] % (Auto) 11.0 H (2.6-8.5) % Eos % (Auto) 1.6 (0-4.4) % Baso % (Auto) 1.0 (0.2-1.2) % Lymph # (Auto) 1.76 (0.9-3.2) K/mm3 [place] # (Auto) 0.6 (0.1-0.6) K/mm3 Eos # (Auto) 0.1 (0-0.3) K/mm3 Baso # (Auto) 0.1 (0.0-0.1) K/mm3 Abs Immat Gran (auto) 0.08 H (0.00-0.031) K/mm3 Absolute Neuts (auto) 3.1 (1.3-6.7) K/mm3 Absolute Nucleated RBC 0.000 (0.0-0.012) K/mm3 Nucleated RBC % 0.0 (0.0-0.2) % PT 12.5 (11.1-14.7) Seconds INR 0.9 APTT 25.1 (22.3-36.8) Seconds Sodium 134 L (137-145) mmol/L Potassium 4.0 (3.4-5.0) mmol/L Chloride 100 (98-107) mmol/L Carbon Dioxide 25 (22-30) mmol/L Anion Gap 9 (4-12) mmol/L BUN 20 H (7-17) mg/dL Creatinine 0.74 (0.7-1.0) mg/dL Estim Creat Clear Calc 66 ml/min Estimated GFR > 60 (59 - ) Glucose 100 (65-110) mg/dL Calcium 9.0 (8.4-10.2) mg/dL Magnesium 1.7 Cancelled (1.6-2.3) mg/dL Total Bilirubin 0.4 (0.2-1.3) mg/dL AST 26 (14-36) U/L ALT 22 (6-35) U/L Alkaline Phosphatase 57 (38-126) U/L Troponin I < 0.012 (0.000-0.034) ng/mL NT-Pro-B Natriuret Pep 82 (19.9-100) pg/mL Total Protein 7.0 (6.3-8.2) g/dL Albumin 4.4 (3.5-5.1) g/dL Lipase 83 (23-300) U/L TSH (Reflex) 3.340 (0.465-4.68) uIU/mL Imaging Data Attestation: I personally reviewed and interpreted this imaging study as follows: My impression: CXR: Clear ECG Data EKG #1: Attestation: I personally reviewed and interpreted this ECG as follows: ECG completion date: 12/11/24 ECG completion time: 23:59 EKG Interpretation: tachycardia (141), atrial fibrillation (RVR), non- specific ST changes and ST depression Discharge Plan Discharge Clinical Impression: Atrial fibrillation with rapid ventricular response Patient Disposition: Home Condition: Stable Instructions: Antibiotic Form, Apixaban (By mouth), A-fib (Atrial Fibrillation) (ED), Safe Use of Anticoagulants (ED), Blood Thinners (ED) Additional Instructions: Take metoprolol daily in the morning as prescribed. This medication is taken 1x per day. You were given your first dose of this in the ED. You will start this on your own on Monday morning. Monitor your blood pressure and heart rate throughout the day tomorrow and contact your [employer] and [employer]'s office to discuss your numbers. Keep recording of numbers. Return to the ED if you experience chest pain, unable to control heart rate, shortness of breath, passing out, severe dizziness, pain or swelling in your legs, or any other symptoms of concern. You are also being started on Eliquis, which is a blood thinner. Take Eliquis twice daily as prescribed. You were given your first dose of this in the ED. Start this tonight ( pm). It is important you do not miss any doses. Eliquis puts you at risk for bleeding. If you ever fall and hit her head, it is recommended that you come to the ED to be evaluated and receive imaging of your brain. Additionally, if you developed severe nosebleeds, rectal bleeding, dark black stools, blood in your urine, return to the ED. Patient Language: Bermudian Prescriptions: New metoprolol succinate 25 mg tablet extended release 24 hr 25 mg PO DAILY Qty: 30 0RF Eliquis 5 mg tablet 5 mg PO BID Qty: 60 0RF No Action levothyroxine [Tirosint] 88 mcg capsule 88 mcg PO DAILY buspirone 5 mg tablet 5 mg PO DAILY PRN (Reason: anxiety) lorazepam 1 mg tablet 1 mg PO DAILY PRN (Reason: anxiety) Qty: 10 2RF losartan 50 mg tablet 50 mg PO DAILY Qty: 90 1RF Follow-up/Referrals: Andriy Burgos MD [Primary Care Provider] - Time of Disposition: 02:50
[2024-12-12 00:17] VITALS: PULSE 132
[2024-12-12] MEDS: METOPROLOL TARTRATE INJ 5 MG/5 ML VIAL IV PUSH (00:17)
[2024-12-12] MEDS: SODIUM CHLORIDE 0.9% IV 1,000 ML 999 ML IV CONT (00:17)
[2024-12-12 00:25] VITALS: BP 160/86; PULSE 144; RESP 15; TEMP 36.8; O2SAT 100
[2024-12-12 00:33] LABS: INR 0.9; Partial Thromboplastin Time 25.1 Seconds (22.3-36.8); Prothrombin Time 12.5 Seconds (11.1-14.7)
[2024-12-12 00:41] LABS: Basophils Absolute Auto 0.1 K/mm3 (0.0-0.1); Eosinophils Absolute Auto 0.1 K/mm3 (0-0.3); Eosinophils Percent Auto 1.6 % (0-4.4); Hematocrit 40.6 % (37.0-47.0); Hemoglobin 13.5 g/dL (12.0-15.0); Immature Granulocyte Absolute 0.08 K/mm3 (0.00-0.031); Immature Granulocyte Percent A 1.4 % (0-0.5); Lymphocytes Absolute Auto 1.76 K/mm3 (0.9-3.2); Lymphocytes Percent Auto 30.7 % (18.3-44.2); Mean Corpuscular HGB Conc 33.3 g/dl (32-36); Mean Corpuscular Hemoglobin 30.6 pg (26-34); Mean Corpuscular Volume 92.1 fl (80-100); Mean Platelet Volume 9.5 fl (7.4-10.4); Monocytes Absolute Auto 0.6 K/mm3 (0.1-0.6); Neutrophils Absolute Auto 3.1 K/mm3 (1.3-6.7); Neutrophils Percent Auto 54.3 % (45.5-73.1); Platelet Count Result 226 k/mm3 (150-375); Red Blood Count 4.41 M/mm3 (4.2-5.4); Red Cell Distribution Width 12.1 % (11.5-14.5); White Blood Count 5.7 K/mm3 (4.5-10.0)
[2024-12-12 00:51] LABS: Alanine Aminotransferase 22 U/L (6-35); Albumin Level 4.4 g/dL (3.5-5.1); Alkaline Phosphatase 57 U/L (38-126); Anion Gap 9 mmol/L (4-12); Aspartate Amino Transferase 26 U/L (14-36); Bilirubin,Total 0.4 mg/dL (0.2-1.3); Blood Urea Nitrogen 20 mg/dL (7-17); Carbon Dioxide 25 mmol/L (22-30); Chloride 100 mmol/L (98-107); Estimated CRCL calculation 66 ml/min; Estimated Glomerular Filt Rate > 60; Glucose 100 mg/dL (65-110); Lipase 83 U/L (23-300); Magnesium 1.7 mg/dL (1.6-2.3); Sodium 134 mmol/L (137-145)
[2024-12-12 00:59] LABS: NT Pro B Type Natriuretic Pept 82 pg/mL (19.9-100)
[2024-12-12 01:03] LABS: Troponin I < 0.012 ng/mL (0.000-0.034)
--- NOTE | 2024-12-12 01:12 | ECG_ITS ---
Test Date: 2024-12-12 01:23:29 Measurements Intervals [place] Rate: 104 P: 0 MO: 0 QRS: 17 QRSD: 81 T: 46 QT: 338 QTc: 446 Interpretive Statements ATRIAL FIBRILLATION WITH RAPID VENTRICULAR RESPONSE POSSIBLE RIGHT VENTRICULAR CONDUCTION DELAY ABNORMAL ECG Compared to ECG 12/11/2024 23:59:26 HEART RATE HAS DECREASED Electronically Signed On 12-12-2024 06:03:01 CDT by Yariel Hernandez D.O.
[2024-12-12] MEDS: MAGNESIUM SULF 2 GM/WATER 50ML 2 GM/50 ML BAG IVPB (01:22)
--- OUTSIDE RECORDS SUMMARY | 2024-12-12 01:41 | XMS_ITS | Patient Health Record ---
Author Organization [facility] Address [address] [address] Care Team Providers Care Freelance Translator Name Role Phone Minnie Bloom Primary Care Provider [phone] Migration, Provider Unavailable Unavailable Results Component Value Reference Range Notes COMPREHENSIVE METABOLIC PANE L Reviewed date:04/02/2024 08:00:30 AM Interpretation: Performing Lab:[facility], [place], [address] Rossy Hollins MD Notes/Report: FASTING:YES FASTING: YES VITAMIN D, 25-HYDROXY, LC/MS /MS Reviewed date:04/02/2024 07:59:57 AM Interpretation: Performing Lab:[facility], [place], [address] Rossy Hollins MD Notes/Report: FASTING:YES FASTING: YES T3, FREE Reviewed date:04/04/2024 09:02:47 AM Interpretation: Performing Lab:[facility], [place], [address] Rossy Hollins MD Notes/Report: FASTING:YES FASTING: YES FOLATE, RBC Reviewed date:04/03/2024 03:39:11 PM Interpretation: Performing Lab:[facility], [place], [address] Rossy Hollins MD Notes/Report: FASTING:YES FASTING: YES FOLATE, RBC 493 >280 ng/mL RBC CBC (INCLUDES DIFF/PLT) Reviewed date:04/02/2024 08:00:10 AM Interpretation: Performing Lab:[facility], [address], [place], [address] Rossy Hollins MD Notes/Report: FASTING:YES FASTING: YES IRON AND TOTAL IRON BINDING CAPACITY Reviewed date:04/02/2024 08:00:37 AM Interpretation: Performing Lab:[facility], [address], [place], [address] Rossy Hollins MD Notes/Report: FASTING:YES FASTING: YES LIPID PANEL Reviewed date:04/02/2024 08:00:17 AM Interpretation: Performing Lab:[facility], [address], [place], [address] Rossy Hollins MD Notes/Report: FASTING:YES FASTING: YES T4, FREE Reviewed date:04/03/2024 03:22:54 PM Interpretation: Performing Lab:[facility], [address], [place], [place], [address] Rossy Hollins MD Notes/Report: FASTING:YES FASTING: YES TSH Reviewed date:04/02/2024 08:00:44 AM Interpretation: Performing Lab:[facility], [address], [place], [address] Rossy Hollins MD Notes/Report: FASTING:YES FASTING: YES VITAMIN B12 Reviewed date:04/02/2024 07:59:41 AM Interpretation: Performing Lab:[facility], [address], [place], [address] Rossy Hollins MD Notes/Report: FASTING:YES FASTING: YES COMPREHENSIVE METABOLIC PANE L Reviewed date:05/26/2024 08:33:51 PM Interpretation: Performing Lab:[facility], [address], [place], [address] Rossy Hollins MD Notes/Report: FASTING:YES FASTING: YES T3, FREE Reviewed date:05/26/2024 08:32:52 PM Interpretation: Performing Lab:[facility], [address], [place], [address] Rossy Hollins MD Notes/Report: FASTING:YES FASTING: YES CBC (INCLUDES DIFF/PLT) Reviewed date:05/26/2024 08:34:18 PM Interpretation: Performing Lab:[facility], [address], [place], [address] Rossy Hollins MD Notes/Report: FASTING:YES FASTING: YES IRON AND TOTAL IRON BINDING CAPACITY Reviewed date:05/26/2024 08:33:31 PM Interpretation: Performing Lab:[facility], [address], [place], [address] Rossy Hollins MD Notes/Report: FASTING:YES FASTING: YES LIPID PANEL Reviewed date:05/26/2024 08:33:23 PM Interpretation: Performing Lab:[facility], [address], [place], [address] Rossy Hollins MD Notes/Report: FASTING:YES FASTING: YES T4, FREE Reviewed date:05/26/2024 08:34:25 PM Interpretation: Performing Lab:[facility], [address], [place], [address] Rossy Hollins MD Notes/Report: FASTING:YES FASTING: YES TSH Reviewed date:05/26/2024 08:34:33 PM Interpretation: Performing Lab:[facility], [address], [place], [address] Rossy Hollins MD Notes/Report: FASTING:YES FASTING: YES DIHYDROTESTOSTERONE, LC/MS/M S Reviewed date:05/30/2024 08:58:55 PM Interpretation: Performing Lab:[facility],, [address] [place], [address] Radha Arroyo MD,PhD,TOBY Notes/Report: FASTING:YES FASTING: YES DIHYDROTESTOSTERONE, LC/MS/MS 9 < OR = 20 n g/dL This test was developed and its analytical performance characteristics have been determined by [employer]. It has not been cleared or approved by FDA. This assay has been validated pursuant to the CLIA regulations and is used for clinical purposes. VITAMIN B12 Reviewed date:05/27/2024 09:30:30 PM Interpretation: Performing Lab:[facility], [address] [place], [address] Rossy Hollins MD Notes/Report: FASTING:YES FASTING: YES TESTOSTERONE, FREE, BIOAVAIL ABLE AND TOTAL, MS Reviewed date:05/26/2024 08:33:06 PM Interpretation: Performing Lab:[facility], [employer], [facility] [address], [address], [place], [address] Ellen Yi MD,PhD Notes/Report: FASTING:YES FASTING: YES ALBUMIN 4.3 3.6-5.1 g/dL SEX HORMONE BINDING GLOBULIN 65.2 14-73 nmol/L TESTOSTERONE, FREE 1.7 0.2-5.0 pg/mL TESTOSTERONE,BIOAVAILABLE 3.3 0.5-8.5 ng/dL TESTOSTERONE, TOTAL, MS 25 2-45 ng/dL For additional information, please refer to https://education.[employer].com/faq/ERS540 (This link is being provided for informational/educational purposes only.) (Note) This test was developed and its analytical performance characteristics have been determined by [employer]. It has not been cleared or approved by the FDA. This assay has been validated pursuant to the CLIA regulations and is used for clinical purposes. [facility] [address] [address],[address] [facility] [id number] Ellen Yi MD, PhD COMPREHENSIVE METABOLIC PANE L Reviewed date:08/28/2024 10:41:53 AM Interpretation: Performing Lab:[facility], [address] [place], [address] Rossy Hollins MD Notes/Report: FASTING:YES FASTING: YES VITAMIN D, 25-HYDROXY, LC/MS /MS Reviewed date:08/28/2024 10:41:53 AM Interpretation: Performing Lab:[facility], [address] [place], [address] Rossy Hollins MD Notes/Report: FASTING:YES FASTING: YES T3, FREE Reviewed date:08/28/2024 10:41:53 AM Interpretation: Performing Lab:[facility], [address], [address] Rossy Hollins MD Notes/Report: FASTING:YES FASTING: YES CBC (INCLUDES DIFF/PLT) Reviewed date:08/28/2024 10:41:53 AM Interpretation: Performing Lab:[facility], [address] [place], [address] Rossy Hollins MD Notes/Report: FASTING:YES FASTING: YES VITAMIN B12/FOLATE, SERUM PA MAYELIN Reviewed date:08/28/2024 10:41:53 AM Interpretation: Performing Lab:[facility], [address] [place], [address] Rossy Hollins MD Notes/Report: FASTING:YES FASTING: YES LIPID PANEL Reviewed date:08/28/2024 10:41:53 AM Interpretation: Performing Lab:[facility], [address] [place], [address] Rossy Hollins MD Notes/Report: FASTING:YES FASTING: YES T4, FREE Reviewed date:08/28/2024 10:41:53 AM Interpretation: Performing Lab:[facility], [address] [place], [address] Rossy Hollins MD Notes/Report: FASTING:YES FASTING: YES TSH Reviewed date:08/28/2024 10:41:53 AM Interpretation: Performing Lab:[facility] [address] [place], [address] Rossy Hollins MD Notes/Report: FASTING:YES FASTING: YES [...] Status W/U Status Risk Notes Problem Hyperlipidemia (41902388) Hyperlipidemia, unspecified (E78.5) Active confirmed Problem Essential hypertension (71741719) Essential (primary) hypertension (I10) Active confirmed Problem Hypothyroidism (93926481) Hypothyroidism, unspecified (E03.9) Active confirmed Problem Anxiety disorder (621166188) Anxiety disorder, unspecified (F41.9) Active confirmed Problem Obesity (650803709) Obesity, unspecified (E66.9) Active confirmed Vital Signs Heart Rate 62 /min 09/10/2024 Temperature 98 degrees Fahrenheit 12/21/2023 Respiratory Rate 12 /min 09/10/2024 Blood pressure diastolic 72 mm Hg 09/10/2024 Height 67 in 09/10/2024 Blood pressure systolic 120 mm Hg 09/10/2024 Weight 161 lbs 09/10/2024 BMI 25.21 kg/m2 09/10/2024 Encounters Encounter Location Date Provider Diagnosis [facility] [address] [place] [address] 07/13/2024 Provider Migration Hypothyroidism, unspecified E03.9 [facility] [address] [place] [address] 12/22/2023 Minnie Bloom Anxiety disorder, unspecified F41.9 [facility], [facility] - Minnie Bloom [address] [place] [address] 01/03/2024 Minnie [facility] [address] [place] [address] 03/14/2024 Minnie Wood [facility] [address] [place] [address] 03/27/2024 Minnie Bloom [facility], [facility] - [facility]ie [facility] [address] [place] [address] 04/12/2024 Minnie Bloom Hypothyroidism, unspecified E03.9 [facility], [facility] - [facility]ie [facility] [address] [place] [address] 04/30/2024 Minnie Bloom [facility] [address] [place] [address] 05/02/2024 Minnie [facility], [facility] - [place]ie [facility] [address] [place] [address] 05/16/2024 Minnie Bloom [facility], [facility] - [place]ie [facility] [address] [place] [address] 06/21/2024 Minnie Bloom [facility], [facility] - Minnie [facility] [address] [place] [address] 08/01/2024 Minnie Bloom [facility] [address] [place] [address] 08/02/2024 Minnie Bloom [facility], [facility] - [facility]ie [facility] [address] [place] [address] 12/21/2023 Minnie Wolf Hypothyroidism, unspecified E03.9 and Other fatigue R53.83 [facility], [facility] - [facility]ie [facility] [address] [place] [address] 04/11/2024 Minnie Bloom Hypothyroidism, unspecified E03.9 and Hyperlipidemia, unspecified E78.5 [facility], [facility] - Minnie [facility] [address] [place] [address] 05/07/2024 Minnie Bloom Hypothyroidism, unspecified E03.9 and Nonscarring hair loss, unspecified L65.9 [facility], [facility] - Minnie [facility] [address] [place] [address] 08/16/2024 Minnie Bloom Obesity, unspecified E66.9 ; Dietary counseling and surveillance Z71.3 ; Hypothyroidism, unspecified E03.9 ; Hyperlipidemia, unspecified E78.5 and Palpitations R00.2 [facility], [facility] [employer] [address] [place] [address] 09/10/2024 Minnie Bloom Hypothyroidism, unspecified E03.9 ; Hyperlipidemia, unspecified E78.5 and Essential (primary) hypertension I10 T3 Search [facility] [address] [place] [address] 04/18/2024 Minnie Bloom Assessments Encounter Date Diagnosis [...] fish / olive oil based from [employer]-two capsules twice daily. 04/11/2024 Hypothyroidism, unspecified (ICD-10 [...] examination and/or evaluation, counseling and educating the patient/family/caregivers non medical, ordering medications, tests, or procedures, referring and communicating with other health career services officer, documenting clinical information in the electronic or other health record, independently interpreting results and communicating results to the patient/family/caregivers non medical and care coordinating patient plan. Patient alert [...] examination and/or evaluation, counseling and educating the patient/family/caregivers non medical, ordering medications, tests, or procedures, referring and communicating with other health career services officer, documenting clinical information in the electronic or other health record, independently interpreting results and communicating results to the patient/family/caregivers non medical and care coordinating patient plan. Patient alert [...] examination and/or evaluation, counseling and educating the patient/family/caregivers non medical, ordering medications, tests, or procedures, referring and communicating with other health career services officer, documenting clinical information in the electronic or other health record, independently interpreting results and communicating results to the patient/family/caregivers non medical and care coordinating patient plan. Patient alert [...] to Ativan (Lorazepam) - Patient to inform small business sales representative about propranolol prescription 5. Cardiology follow-up - Patient has appointments with small business sales representative Dr. Romain Washburn and Sue Miller - Continue monitoring heart health and addressing any concerns with specialists 6. Medication refill and inventory - Patient has sufficient supply of Tirosint and additional 100 mcg dosage if needed - Propranolol prescription [facility] for patient pick-up Spent 15 [...] examination and/or evaluation, counseling and educating the patient/family/caregivers non medical, ordering medications, tests, or procedures, referring and communicating with other health career services officer, documenting clinical information in the electronic or other health record, independently interpreting results and communicating results to the patient/family/caregivers non medical and care coordinating patient plan. Patient alert [...] heart disease; patient plans to consult a small business sales representative in October. A CT calcium score may [...] examination and/or evaluation, counseling and educating the patient/family/caregivers non medical, ordering medications, tests, or procedures, referring and communicating with other health career services officer, documenting clinical information in the electronic or other health record, independently interpreting results and communicating results to the patient/family/caregivers non medical and care coordinating patient plan. Patient alert [...] Date Coverage End Date [employer] [address] [place] [phone] [id number] Katie Donald Self - patient is the insured Medical (General) History Medical History History ICD Code hypothyroidism hypertension
--- OUTSIDE RECORDS SUMMARY | 2024-12-12 01:41 | XMS_ITS | Clinical Summary ---
Author Organization [facility] Address [address] [place] [address] Care Team Providers Care Cloth Finishing Range Back Tender Name Role Phone Donna Sue DEMARIO Primary Care Provider [phone] Allergies No known active allergies Medications busPIRone [...] Description 12/11/2024 9:30 AM CDT Hospital Encounter [facility] Card[facility] Services [address] [place] [address] Rajinder Schumacher MD Arrived 12/11/2024 MyChart Message [facility] [address] [place] [address] Rajinder Schumacher MD follow up 12/11/2024 Travel 11/15/2024 4:15 PM CDT - 11/15/2024 11:59 PM CDT Hospital Encounter [facility] [address] [address] Rajinder Schumacher MD Discharge Disposition: Home or Self Care (Routine Discharge) 11/15/2024 Travel 11/14/2024 Abstract [facility] [address], [place] [place] [address] [employer], [place] 10/30/2024 9:15 AM NET DEVELOPER CONTRACT Office Visit [facility] [address] [place] [address] Rajinder Schumacher MD Consult; Hypertension; Lipids 10/30/2024 [...] Comments Blood Pressure 130/80 10/30/2024 9:36 AM NET DEVELOPER CONTRACT Pulse 88 10/30/2024 9:36 AM NET DEVELOPER CONTRACT Temperature - - Respiratory Rate - - Oxygen Saturation - - Inhaled Oxygen Concentration - - Weight 76.2 kg (168 lb) 10/30/2024 9:36 AM NET DEVELOPER CONTRACT Height 170.2 cm (5' 7 ) 10/30/2024 9:36 AM NET DEVELOPER CONTRACT Body Mass Index 26.31 10/30/2024 9:36 AM NET DEVELOPER CONTRACT Plan of Treatment Upcoming Encounters Date Type Department Care Team (Late st Contact Info) Description 01/15/2025 8:45 AM CDT Office Visit [facility] [address] [place] [address] Rajinder Schumacher MD [facility]. [facility] [address] [place] [address] Health Maintenance Due Date Last Done Comments [...] DEL TORO Date of : 1960 Account: [id number] Facility: [facility] Location: [facility] Date of Service: 12/11/2024 Stress Test INDICATION: [...] risk for myocardial event. Signature/Date: RAJINDER SCHUMACHER #[id number] /DIN CT HEART SCREEN CALCIUM SCORE PROMO Routine 11/15/2024 4:31 PM CDT Benign essential hypertension Hyperlipidemia, unspecified hyperlipidemia type APOLIPOPROTEIN B Routine 11/13/2024 LIPOPROTEIN A Routine 11/13/2024 C-REACTIVE PROTEIN, HIGH SENSI Routine 11/13/2024 ELECTROCARDIOGRAM (NON MIDMARK ACQUIRED) Routine 10/30/2024 9:48 AM NET DEVELOPER CONTRACT Benign essential hypertension Hyperlipidemia, unspecified hyperlipidemia type [...] 5:26 PM Narrative 11/15/2024 5:34 PM CDT [address] [address] EXAMINATION: CARDIAC CT - CORONARY CALCIUM CT EXAM DATE/TIME: 11/15/2024 4:15 PM REASON FOR EXAM: elevated lipid Hypertension COMPARISON: None HISTORY: 64-year old female for coronary artery disease risk assessment. TECHNIQUE: Multidetector computerized tomography coronary angiogram was obtained using retrospective ECG gating. ECG tube modulation was used to reduce the radiation exposure. Calcium score was calculated using [employer] system software. No intravenous contrast material was [...] Procedure Note Simon Casas MD - 11/15/2024 [address] [place] [address] EXAMINATION: CARDIAC CT - CORONARY CALCIUM CT EXAM DATE/TIME: 11/15/2024 4:15 PM REASON FOR EXAM: elevated lipid Hypertension COMPARISON: None HISTORY: 64-year old female for coronary artery disease riskassessment. TECHNIQUE: Multidetector computerized tomography coronary angiogram wasobtained using retrospective ECG gating. ECG tube modulation was used toreduce the radiation exposure. Calcium score was calculated using[employer] software. No intravenous contrast material wasadministered. A [...] CT Final Result * LIPOPROTEIN A (11/13/2024) [facility] LIPOPROTEIN (A) 72 <75 11/13/2024 us Default History Genericprovider LABORATORY Final Result * APOLIPOPROTEIN B (11/13/2024) [facility] APOLIPOPROTEIN B 102 <90 11/13/2024 us Default History Genericprovider LABORATORY Final Result * C-REACTIVE PROTEIN, HIGH SENSI (11/13/2024) [facility] CRP HIGH SENSITIVITY 2.1 <1.0 11/13/2024 us Default History Genericprovider LABORATORY Edited Result - Final * ELECTROCARDIOGRAM (10/30/2024 9:48 AM NET DEVELOPER CONTRACT) 10/30/2024 9:48 AM NET DEVELOPER CONTRACT Narrative [facility] - 10/30/2024 1:22 PM NET DEVELOPER CONTRACT [facility] Test Date: 2024-10-30 Pat Name: SOLO DEL TORO Department: 107 Room: Gender: Female Jewelry Bearing Maker: nash : 1960 Requested By: RAJINDER SCHUMACHER Order Number: [id number] [place] MD: Rajinder Schumacher Measurements Intervals [place] Rate: 89 P: 63 WV: 140 QRS: 39 QRSD: 90 T: 60 QT: 350 QTc: 426 Interpretive Statements SINUS RHYTHM DEVELOPER CONTRACT Procedure Note Rajinder Schumacher MD - 10/30/2024 [facility] Test Date: 2024-10-30 Pat Name: SOLO DEL TORO Department: 107 Room: Gender: Female Jewelry Bearing Maker: nash : 1960 Requested By: RAJINDER SCHUMACHER Order Number: [id number] [place] MD: Rajinder Schumacher Measurements Intervals [place] Rate: 89 P: 63 WV: 140 QRS: 39 QRSD: 90 T: 60 QT: 350 QTc: 426 Interpretive Statements SINUS RHYTHM DEVELOPER CONTRACT us Rajinder Schumacher MD PROCEDURES-ORDERABLE NO CHARGE Final Result WENDY RODRIGUEZ from Last 3 Months Insurance Care Teams Cloth Finishing Range Back Tender Relationship Specialty Start Date End Date Sue Thompson PA [address] [place] [address] PCP - General PHYSICIAN ASSISTANT TECHNICIAN 08/20/24
--- OUTSIDE RECORDS SUMMARY | 2024-12-12 01:41 | XMS_ITS | Encounter Summary ---
Author Organization [facility] Address [address] [place] [address] Care Team Providers Care Electronic Engineering Draftsperson Name Role Phone Sue Thompson Primary Care Provider [phone] Reason for Referral * Procedure (Routine) - Closed Specialty Diagnoses / Procedures Referred By Charly owusu Referred To Contact CARDIOLOGY Diagnoses Benign essential hypertension Hyperlipidemia, unspecified hyperlipidemia type Procedures STRESS TEST ONLY, EXERCISE Rajinder Schumacher MD [address] [address] Phone: tel: fax: Referral ID Status Reason Start Date Expiration Date Visits Re quested Visits Authorized [id number] Closed 10/30/2024 10/30/2025 1 1 Reason for Visit * Procedure (Routine) - Closed Specialty Diagnoses / Procedures Referred By Charly owusu Referred To Contact CARDIOLOGY Diagnoses Benign essential hypertension Hyperlipidemia, unspecified hyperlipidemia type Procedures STRESS TEST ONLY, EXERCISE Rajinder Schumacher MD [address] [address] Phone: tel: fax: Referral ID Status Reason Start Date Expiration Date Visits Re quested Visits Authorized [id number] Closed 10/30/2024 10/30/2025 1 1 Encounter Details Date Type Department Care Team (Late st Contact Info) Description 12/11/2024 9:30 AM CDT Hospital Encounter [facility] Cardiopulmonary Services [address] [place] [address] Rajinder Schumacher MD [facility]. [facility] [address] [place] [address] Arrived Social History Tobacco Use Types Packs/Day [...] Description 01/15/2025 8:45 AM CDT Office Visit [facility] [address] [place] [address] Rajinder Schumacher MD [facility]. [address] [address] Pending Results Name Type Priority Associated Diagnoses [...] DEL TORO Date of : 1960 Account: [id number] Facility: [facility] Location: [facility] Date of Service: 12/11/2024 Stress Test INDICATION: [...] risk for myocardial event. Signature/Date: RAJINDER SCHUMACHER #[id number] /DIN documented in this encounter Visit Diagnoses Diagnosis Benign essential hypertension Essential hypertension, benign Hyperlipidemia, unspecified hyperlipidemia type documented in this encounter Care Teams Electronic Engineering Draftsperson Relationship Specialty Start Date End Date Sue Thopmson PA [address] [place] [address] PCP - General PHYSICIAN LOGGING SPECIALIST 08/20/24 documented as of this encounter
--- OUTSIDE RECORDS SUMMARY | 2024-12-12 01:41 | XMS_ITS | Encounter Summary ---
Author Organization [facility] Address [address] [place] [address] Care Team Providers Care Tube Closing Machine Operator Name Role Phone Sue Thompson Primary Care Provider [phone] Encounter Details Date Type Department Care Team [...] Description 01/15/2025 8:45 AM CDT Office Visit [facility] [address] [phone] Romain Schumacher MD [address] [address] documented as of this encounter Visit Diagnoses Not on filedocumented in this encounter Care Teams Tube Closing Machine Operator Relationship Specialty Start Date End Date Sue Thompson PA [address] [place] [phone] PCP - General PHYSICIAN CLERICAL ADJUDICATOR 08/20/24 documented as of this encounter
--- OUTSIDE RECORDS SUMMARY | 2024-12-12 01:41 | XMS_ITS ---
Author Organization [facility] Address [address] [address] Care Team Providers Care Rotary Drier Operator Name Role Phone Minnie Bloom Primary Care Provider REASON FOR VISIT quest orders Encounters Encounter Location Date Provider Diagnosis [facility] [address] [place] [address] 08/02/2024 Minnie Bloom Plan Of Treatment No Information Progress Notes * Patsy DEL TOROOB:[birth year] (64 yo F)Acc No.[id number]:08/02/2024 Patient: Karli HAWK Katie :1960 A ge:64 Y S ex:Female Phone: Address:[address] [place] [address] * true * Date: Generated for Micaelai ng/Fatonieg/eTransmitting on: 0 12/12/2024 01:41 AM CDT
--- OUTSIDE RECORDS SUMMARY | 2024-12-12 01:41 | XMS_ITS | Encounter Summary ---
Author Organization [facility] Address [address] [place] [address] Care Team Providers Care Import/Export Analyst Name Role Phone Sue Thompson DEMARIO Primary Care Provider [phone] Encounter Details Date Type Department Care Team (Late Contact Info) Description 12/11/2024 MyChart Message Enc [facility] [address] [place] [id number] Romain Schumacher MD [facility] [address] [place], [place] [id number] follow up Social History Tobacco Use Types [...] Description 01/15/2025 8:45 AM CDT Office Visit [facility] [address] [place] [phone] Romain Schumacher MD [facility]. [address] [place], [place] [address] documented as of this encounter Visit Diagnoses Not on filedocumented in this encounter Care Teams Import/Export Analyst Relationship Specialty Start Date End Date Sue Thompson PA [address] [place] [address] PCP - General PHYSICIAN EXTENSION COURSE COORDINATOR 08/20/24 documented as of this encounter
--- OUTSIDE RECORDS SUMMARY | 2024-12-12 01:41 | XMS_ITS | Encounter Summary ---
Author Organization [facility] Address [address] [place] [address] Phone Care Team Providers Care Radio Despatcher Name Role Phone Melissa Zuniga Primary Care Provider [phone] Andriy Burgos MD Unavailable [phone] Melani Mclean MD Unavailable [phone] Rajni Jimenez MD Unavailable [phone] Kevin Ryder MD PhD Unavailable Sue Thompson [...] on file Legal Sex Female 12:53 AM SYSTEMS SUPPORT OFFICER Gender Identity Not on file Sexual Orientation [...] on filedocumented in this encounter Care Teams Radio Despatcher Relationship Specialty Start Date End Date Melissa Zuniga PA [address] [place] [address] PCP - General Family Medicine 07/19/23 11/12/24 Sue Thompson PA [address] [place], [place] [id number] PCP - General Physician Rn Team Leader 11/13/24 Andriy Burgos MD [address] [place] [address] 11/05/21 Melani Mclean MD [address] [address] Surgeon Surgical Oncology 09/25/23 Rajni Jimenez MD [facility] [address] Radiation Oncologist Radiation Oncology 10/31/23 Kevin Ryder MD PhD [address] [place] [address] Medical Oncologist/Three Knife Trimmer Medical Oncology 11/01/23 documented as of this encounter
--- OUTSIDE RECORDS SUMMARY | 2024-12-12 01:41 | XMS_ITS | Clinical Summary ---
Author Organization [facility] [employer] Address [address] [address] Care Team Providers Care Telephone Sex Worker Name Role Phone Andriy Burgos MD Unavailable [phone] Melani Mclean MD Unavailable [phone] Rajni Jimenez MD Unavailable [phone] Kevin Ryder MD PhD Unavailable Sue Thompson [...] from 10/31/2023:Stage IA(pT1c, pN0(sn), cM0, G2, ER+, DE+, HER2-) - Signed by Rajni Jimenez MD on 10/31/2023 Dizziness and giddiness 12/12/2022 Sensorineural hearing loss (SNHL) of both ears 0 11/25/2021 Tinnitus of both ears 11/25/2021 Otosclerosis of left ear 11/25/2021 Hypothyroidism 01/11/2014 Overview (12/02/2016): HYPOTHYROIDISM NOS Encounters Date Type Department Care Team Description 11/25/2024 Telephone [facility] 8 [place] [address] Stephanie Sutton RN 11/22/2024 10:11 AM CDT - 11/22/2024 11:59 PM CDT Hospital Encounter [facility] [address] [place] [address] Malignant neoplasm of lower-outer quadrant of right breast of female, estrogen receptor positive (HCC) Discharge Disposition: Discharge to home or self care 11/22/2024 Results Follow-Up [facility] Urology [address] [facility] Medical Office Building [address] [place] [address] Melani Mclean MD 11/15/2024 Telephone [facility] 8 [place] [address] Melani Mclean MD 10/31/2024 4:00 PM LEAD CAREGIVER Office Visit [facility] Medical Office Building 2 Radiation Oncology [address] [place] [address] Sarah Escoto, PA Malignant neoplasm of lower-outer quadrant of right breast of female, estrogen receptor positive (HCC) (Primary Dx); Personal history of radiation therapy 10/25/2024 Telephone [facility] Floor 8 [place] [address] Melani Mclean MD Med Refill [...] on file Legal Sex Female 12:53 AM LEAD CAREGIVER Gender Identity Not on file Sexual Orientation Not on file Obstetrics History Last Filed Vital Signs Vital Sign Reading Time Taken Comments Blood Pressure 149/88 10/31/2024 4:06 PM LEAD CAREGIVER Pulse 96 10/31/2024 4:06 PM LEAD CAREGIVER Temperature 36.6 C (97.8 F) 11/03/2023 2:54 PM LEAD CAREGIVER Respiratory Rate 18 11/03/2023 2:54 PM LEAD CAREGIVER Oxygen Saturation 100% 10/31/2024 4:06 PM LEAD CAREGIVER Inhaled Oxygen Concentration - - Weight 71.7 kg (158 lb) 10/31/2024 4:06 PM LEAD CAREGIVER Height 170.2 cm (5' 7.01 ) 05/24/2024 [...] this topic Medical Devices Implanted Type Area Furniture Restorer Device Identifier Shelf Expiration Date Model / Serial / Lot [employer] Marker Tissue Needle Delivery Spiral Capped Seed Radiopaque Group Home Stainless Steel Low Nickel Sentimag [id number] - [id number] Implanted:Qty: 1 on 09/14/2023 by Joie Brito MD at [facility] Right: Breast MEDOVENT [id number] 03/27/2027 [id number] Procedures Procedure Name Priority Date/Time Associated Diagnosis [...] Most Recently Relevant to Health Maintenance Insurance [facility] Care Teams Telephone Sex Worker Relationship Specialty Start Date End Date Sue Thompson PA [address] [place] [address] PCP - General Physician Pocket Stitcher 11/13/24 Andriy Burgos MD [address] [place] [address] 11/05/21 Melani Mclean MD [address] [id number] Surgeon Surgical Oncology 09/25/23 Rajni Jimenez MD [facility] [address] Radiation Oncologist Radiation Oncology 10/31/23 Kevin Ryder MD PhD [address] [place] [address] Medical Oncologist/Fill Plant Operator Medical Oncology 11/01/23
--- OUTSIDE RECORDS SUMMARY | 2024-12-12 01:41 | XMS_ITS | Referral Summary ---
Author Organization [facility] [employer] Address [address] [place] [address] Care Team Providers Care Interior Plant Caretaker Name Role Phone Andriy Burgos MD Unavailable [phone] Melani Mclean MD Unavailable [phone] Rajni Jimenez MD Unavailable [phone] Kevin Ryder MD PhD Unavailable Sue Thompson Primary Care Pr ovider Encounters Date Type Department Care Team Description 11/25/2024 Telephone [facility] [address] [place] [address] 8 [place] [address] Stephanie Sutton RN 11/22/2024 Results Follow-Up [facility] Urology [address] [facility] Medical Office Building [address] [place] [address] Melani Mclean MD 11/22/2024 10:11 AM CDT - 11/22/2024 11:59 PM CDT Hospital Encounter [facility] [address] [place] [address] Malignant neoplasm of lower-outer quadrant of right breast of female, estrogen receptor positive (HCC) Discharge Disposition: Discharge to home or self care 11/15/2024 Telephone [facility] [address] [place] [address] Floor 8 [place] [address] Melani Mclean MD 10/31/2024 4:00 PM BEEF BONER Office Visit [facility] Medical Office Building 2 Radiation Oncology [facility]8 [place] [address] Sarah Escoto PA Malignant neoplasm of lower-outer quadrant of right breast of female, estrogen receptor positive (HCC) (Primary Dx); Personal history of radiation therapy 10/25/2024 Telephone [facility] 8 [place] [address] Melani Mclean MD Med Refill [...] from 10/31/2023:Stage IA(pT1c, pN0(sn), cM0, G2, ER+, FL+, HER2-) - Signed by Rajni Jimenez MD [...] on file Legal Sex Female 12:53 AM BEEF BONER Gender Identity Not on file Sexual Orientation Not on file Last Filed Vital Signs Vital Sign Reading Time Taken Comments Blood Pressure 149/88 10/31/2024 4:06 PM BEEF BONER Pulse 96 10/31/2024 4:06 PM BEEF BONER Temperature 36.6 C (97.8 F) 11/03/2023 2:54 PM BEEF BONER Respiratory Rate 18 11/03/2023 2:54 PM BEEF BONER Oxygen Saturation 100% 10/31/2024 4:06 PM BEEF BONER Inhaled Oxygen Concentration - - Weight 71.7 kg (158 lb) 10/31/2024 4:06 PM BEEF BONER Height 170.2 cm (5' 7.01 ) 05/24/2024 9:35 AM CD T Body Mass Index 24.74 05/24/2024 9:35 AM CDT Plan of Treatment Not on file Medical Devices Implanted Type Area Morgue Technician Device Identifier Shelf Expiration Date Model / Serial / Lot [employer] Inc Marker Tissue Needle Delivery Spiral Capped Seed Radiopaque Vamper Stainless Steel Low Nickel Sentimag [id number] - [id number] Implanted:Qty: 1 on 09/14/2023 by Joie Brito MD at [facility] Right: Breast [employer] Inc [id number] 03/27/2027 [id number] Procedures Procedure Name Priority Date/Time Associated Diagnosis [...] Most Recently Relevant to Health Maintenance Insurance [facility] Care Teams Interior Plant Caretaker Relationship Specialty Start Date End Date Sue Thompson PA [address] [place], [place] [id number] PCP - General Physician Outpatient Phlebotomist 11/13/24 Andriy Burgos MD [address] [place] [address] 11/05/21 Melani Mclean MD [address] [address] Surgeon Surgical Oncology 09/25/23 Rajni Jimenez MD [address] [address] Radiation Oncologist Radiation Oncology 10/31/23 Kevin Ryder MD PhD [address] [place] [address] Medical Oncologist/Ceramic Painter Medical Oncology 11/01/23
--- OUTSIDE RECORDS SUMMARY | 2024-12-12 01:41 | XMS_ITS ---
Author Organization [facility] [employer] Address [address] [place] [address] Care Team Providers Care Landscape Gardener Name Role Phone Andriy Burgos MD Unavailable [phone] Melani Mclean MD Unavailable [phone] Rajni Jimenez MD Unavailable [phone] Kevin Ryder MD PhD Unavailable uSe Thompson Primary Care Pr ovider Active Problems Problem Noted Date Diagnosed Date Personal history of radiation therapy 12/27/2023 Malignant neoplasm of female breast 09/01/2023 Malignant neoplasm of lower- outer quadrant of right breast of female, estrogen receptor positive 08/30/2023 Cancer Staging:Pathologic stage from 10/31/2023:Stage IA(pT1c, pN0(sn), cM0, G2, ER+, WA+, HER2-) - Signed by Rajni Jimenez MD [...]
--- OUTSIDE RECORDS SUMMARY | 2024-12-12 01:41 | XMS_ITS | Encounter Summary ---
Author Organization [facility] Healthcare Address [address] [place] [address] Care Team Providers Care Master Ocean Name Role Phone Melissa Zuniga Primary Care Provider [phone] Andriy Burgos MD Unavailable [phone] Melani Mclean MD Unavailable [phone] Rajni Jimenez MD Unavailable [phone] Kevin Ryder MD PhD Unavailable Sue Thompson Primary Care Pr ovider Encounter Details Date Type Department Care Team (Late st Contact Info) Description 04/17/2024 Documentation [facility] Physical Therapy [address] [address] Kaylene Hernandez, PT Social History [...] file Legal Sex Female 12:53 AM CHIEF JAILER Gender Identity Not on file Sexual Orientation Not on file documented as of this encounter Plan of Treatment Not on file documented as of this encounter Visit Diagnoses Not on filedocumented in this encounter Care Teams Master Ocean Relationship Specialty Start Date End Date Melissa Zuniga PA [address] [place] [address] PCP - General Family Medicine 07/19/23 11/12/24 Sue Thompson PA [address] [place] [address] PCP - General Physician Hospital Account Manager 11/13/24 Andriy Burgos MD [address] [place] [address] 11/05/21 Melani Mclean MD [address] [address] Surgeon Surgical Oncology 09/25/23 Rajni Jimenez MD [facility]8 [address] [address] Radiation Oncologist Radiation Oncology 10/31/23 Kevin Ryder MD PhD [address] [place] [address] Medical Oncologist/Cosmetologist Medical Oncology 11/01/23 documented as of this encounter
--- OUTSIDE RECORDS SUMMARY | 2024-12-12 01:42 | XMS_ITS | Encounter Summary ---
Author Organization [facility] Address [address] [place] [address] Care Team Providers Care Assistant Brand Manager Name Role Phone Sue Thompson DEMARIO Primary Care Provider [phone] Encounter Details Date Type Department Care Team (Late st Contact Info) Description 11/14/2024 Abstract [facility], [address] [id number] Hayden Lovelace MA Social History Tobacco Use [...] Description 01/15/2025 8:45 AM CDT Office Visit [facility] [address] Romain Schumacher MD [facility]. [address] [address] documented as of this encounter Procedures Procedure Name Priority Date/Time Associated Diagnosis Comments LIPOPROTEIN A Routine 11/13/2024 APOLIPOPROTEIN B Routine 11/13/2024 C-REACTIVE PROTEIN, HIGH SENSI Routine 11/13/2024 documented in this encounter Results * APOLIPOPROTEIN B (11/13/2024) Pathologist [facility] APOLIPOPROTEIN B 102 <90 11/13/2024 us Default History Genericprovider LABORATORY Final Result * LIPOPROTEIN A (11/13/2024) Pathologist [facility] LIPOPROTEIN (A) 72 <75 11/13/2024 us Default History Genericprovider LABORATORY Final Result * C-REACTIVE PROTEIN, HIGH SENSI (11/13/2024) Pathologist [facility] CRP HIGH SENSITIVITY 2.1 <1.0 11/13/2024 us Default History Genericprovider LABORATORY Edited Result - Final documented in this encounter Visit Diagnoses Not on filedocumented in this encounter Care Teams Assistant Brand Manager Relationship Specialty Start Date End Date Sue Thompson PA [address] [place] [address] PCP - General PHYSICIAN CARNALLITE PLANT OPERATOR 08/20/24 documented as of this encounter
--- OUTSIDE RECORDS SUMMARY | 2024-12-12 01:42 | XMS_ITS | Encounter Summary ---
Author Organization [facility] Healthcare Address [address] [place] [address] Care Team Providers Care Housekeeping Cleaner Name Role Phone Andriy Burgos MD Primary Care Provider [phone] Reason for Visit * Diagnostic Imaging (Routine) - Closed Specialty Diagnoses / Procedures Referred By Contac t Referred To Contact Procedures Breast Imaging US Outside Reference Transcribed Order, Provider Referral ID Status Reason Start Date Expiration Date Visits Re quested Visits Authorized [id number] Closed 08/08/2023 09/06/2024 1 1 Encounter Details Date Type Department Care Team (Late st Contact Info) Description 03/05/2019 Hospital Encounter [facility] [address] [place] [address] Social History Tobacco Use Types Packs/Day [...] on file Legal Sex Female 12:53 AM RENTAL CAR DELIVERER Gender Identity Not on file Sexual Orientation Not on file documented as of this encounter Functional Status * Audit-C Score Answer Date of Assessment Author 1 09/25/2023 6:42 AM RENTAL CAR DELIVERER Shaylee Herrera, EDDIE * Question Answer Date of Assessment Author Q1: How often do you have a drink containing alcohol? 2-3 times a week 11/01/2023 2:10 PM RENTAL CAR DELIVERER Lillie Grissom , EDDIE Q2: How many drinks containing alcohol do you have on a typical day when you are drinking? 3 or 4 11/03/2023 2:57 PM RENTAL CAR DELIVERER Mary Anne Marshall Q3: How often do you have six or more drinks on one occasion? Weekly 11/03/2023 2:57 PM RENTAL CAR DELIVERER Mary Anne Marshall documented as of this encounter Plan of Treatment Not on file documented as of this encounter Procedures Procedure Name Priority Date/Time Associated Diagnosis Comments BREAST IMAGING US OUTSIDE REFERENCE Routine 03/05/2019 12:00 AM CDT documented in this encounter Results * Breast Imaging US Outside Reference (03/05/2019 12:00 AM CDT) Impressions [facility] - 08/08/2023 12:38 PM RENTAL CAR DELIVERER These images are for Reference purposes only and have not been reviewed by [facility]. There will be no report generated by a [facility] Radiologist. Narrative [facility] - 08/08/2023 12:38 PM RENTAL CAR DELIVERER EXAMINATION: Images For Reference Purposes Only us Provider Transcribed Order IMG MAMMO PROCEDURES Final Result [facility] documented in this encounter Visit Diagnoses Not on filedocumented in this encounter Care Teams Housekeeping Cleaner Relationship Specialty Start Date End Date Andriy Burgos MD [address] [place] [address] PCP - General 03/03/11 11/04/21 documented as of this encounter
--- OUTSIDE RECORDS SUMMARY | 2024-12-12 01:42 | XMS_ITS | Encounter Summary ---
Author Organization [facility] Healthcare Address [address] [place] [address] Care Team Providers Care Chamber Magistrate Name Role Phone Andriy Burgos MD Primary Care Provider [phone] Reason for Visit * Diagnostic Imaging (Routine) - Closed Specialty Diagnoses / Procedures Referred By Contac t Referred To Contact Procedures Breast Imaging US Outside Reference Transcribed Order, Provider Referral ID Status Reason Start Date Expiration Date Visits Re quested Visits Authorized [id number] Closed 08/08/2023 09/06/2024 1 1 Encounter Details Date Type Department Care Team (Late st Contact Info) Description 09/23/2019 12:05 AM TRACK LAYING EQUIPMENT OPERATOR Hospital Encounter [facility] [address] [place] [address] Social History Tobacco Use Types Packs/Day [...] on file Legal Sex Female 12:53 AM TRACK LAYING EQUIPMENT OPERATOR Gender Identity Not on file Sexual Orientation Not on file documented as of this encounter Functional Status * Audit-C Score Answer Date of Assessment Author 1 09/25/2023 6:42 AM TRACK LAYING EQUIPMENT OPERATOR Shaylee Herrera, EDDIE * Question Answer Date of Assessment Author Q1: How often do you have a drink containing alcohol? 2-3 times a week 11/01/2023 2:10 PM TRACK LAYING EQUIPMENT OPERATOR Lillie Grissom , EDDIE Q2: How many drinks containing alcohol do you have on a typical day when you are drinking? 3 or 4 11/03/2023 2:57 PM TRACK LAYING EQUIPMENT OPERATOR Mary Anne Marshall Q3: How often do you have six or more drinks on one occasion? Weekly 11/03/2023 2:57 PM TRACK LAYING EQUIPMENT OPERATOR Mary Anne Marshall documented as of this encounter Plan of Treatment Not on file documented as of this encounter Procedures Procedure Name Priority Date/Time Associated Diagnosis Comments BREAST IMAGING US OUTSIDE REFERENCE Routine 09/23/2019 12:05 AM TRACK LAYING EQUIPMENT OPERATOR documented in this encounter Results * Breast Imaging US Outside Reference (09/23/2019 12:05 AM TRACK LAYING EQUIPMENT OPERATOR) Impressions [facility] - 08/08/2023 10:12 AM TRACK LAYING EQUIPMENT OPERATOR These images are for Reference purposes only and have not been reviewed by [facility] Radiology. There will be no report generated by a [facility] Radiologist. Narrative [facility] - 08/08/2023 10:12 AM TRACK LAYING EQUIPMENT OPERATOR EXAMINATION: Images For Reference Purposes Only us Provider Transcribed Order IMG MAMMO PROCEDURES Final Result [facility] documented in this encounter Visit Diagnoses Not on filedocumented in this encounter Care Teams Chamber Magistrate Relationship Specialty Start Date End Date Andriy Burgos MD [address] [place] [address] PCP - General 03/03/11 11/04/21 documented as of this encounter
--- OUTSIDE RECORDS SUMMARY | 2024-12-12 01:42 | XMS_ITS | Encounter Summary ---
Author Organization [facility] Healthcare Address [address] [place] [address] Care Team Providers Care Payroll Administrative Assistant Name Role Phone Andriy Burgos MD Primary Care Provider [phone] Reason for Visit * Diagnostic Imaging (Routine) - Closed Specialty Diagnoses / Procedures Referred By Contac t Referred To Contact Procedures Breast Imaging US Outside Reference Transcribed Order, Provider Referral ID Status Reason Start Date Expiration Date Visits Re quested Visits Authorized [id number] Closed 08/08/2023 09/06/2024 1 1 Encounter Details Date Type Department Care Team (Late st Contact Info) Description 08/07/2018 12:05 AM HAZARDOUS MATERIALS ANALYST Hospital Encounter [facility] [address] [place] [phone] Social History Tobacco Use Types Packs/Day Years [...] on file Legal Sex Female 12:53 AM HAZARDOUS MATERIALS ANALYST Gender Identity Not on file Sexual Orientation Not on file documented as of this encounter Functional Status * Audit-C Score Answer Date of Assessment Author 1 09/25/2023 6:42 AM HAZARDOUS MATERIALS ANALYST Shaylee Herrera, EDDIE * Question Answer Date of Assessment Author Q1: How often do you have a drink containing alcohol? 2-3 times a week 11/01/2023 2:10 PM HAZARDOUS MATERIALS ANALYST Lillie Grissom , EDDIE Q2: How many drinks containing alcohol do you have on a typical day when you are drinking? 3 or 4 11/03/2023 2:57 PM HAZARDOUS MATERIALS ANALYST Mary Anne Marshall Q3: How often do you have six or more drinks on one occasion? Weekly 11/03/2023 2:57 PM HAZARDOUS MATERIALS ANALYST Mary Anne Marshall documented as of this encounter Plan of Treatment Not on file documented as of this encounter Procedures Procedure Name Priority Date/Time Associated Diagnosis Comments BREAST IMAGING US OUTSIDE REFERENCE Routine 08/07/2018 12:05 AM HAZARDOUS MATERIALS ANALYST documented in this encounter Results * Breast Imaging US Outside Reference (08/07/2018 12:05 AM HAZARDOUS MATERIALS ANALYST) Impressions [facility] - 08/08/2023 10:11 AM HAZARDOUS MATERIALS ANALYST These images are for Reference purposes only and have not been reviewed by [facility]. There will be no report generated by a [facility] Radiologist. Narrative [facility] - 08/08/2023 10:11 AM HAZARDOUS MATERIALS ANALYST EXAMINATION: Images For Reference Purposes Only us Provider Transcribed Order IMG MAMMO PROCEDURES Final Result [facility] documented in this encounter Visit Diagnoses Not on filedocumented in this encounter Care Teams Payroll Administrative Assistant Relationship Specialty Start Date End Date Andriy Burgos MD [address] [place] [address] PCP - General 03/03/11 11/04/21 documented as of this encounter
--- OUTSIDE RECORDS SUMMARY | 2024-12-12 01:42 | XMS_ITS | Encounter Summary ---
Author Organization [facility] Address [address] [place] [address] Care Team Providers Care Pipelines Manager Name Role Phone Andriy Burgos MD Primary Care Provider [phone] Reason for Visit * Diagnostic Imaging (Routine) - Closed Specialty Diagnoses / Procedures Referred By Contac t Referred To Contact Procedures Breast Imaging Screening Outside Reference Transcribed Order, Provider Referral ID Status Reason Start Date Expiration Date Visits Re quested Visits Authorized [id number] Closed 08/08/2023 09/06/2024 1 1 Encounter Details Date Type Department Care Team (Late st Contact Info) Description 10/23/2020 Hospital Encounter [facility] [address] [place] [address] Social History Tobacco Use Types Packs/Day [...] on file Legal Sex Female 12:53 AM THIRD SHIFT LIEUTENANT Gender Identity Not on file Sexual Orientation Not on file documented as of this encounter Functional Status * Audit-C Score Answer Date of Assessment Author 1 09/25/2023 6:42 AM THIRD SHIFT LIEUTENANT Shaylee Herrera, EDDIE * Question Answer Date of Assessment Author Q1: How often do you have a drink containing alcohol? 2-3 times a week 11/01/2023 2:10 PM THIRD SHIFT LIEUTENANT Lillie Grissom , EDDIE Q2: How many drinks containing alcohol do you have on a typical day when you are drinking? 3 or 4 11/03/2023 2:57 PM THIRD SHIFT LIEUTENANT Mary Anne Marshall Q3: How often do you have six or more drinks on one occasion? Weekly 11/03/2023 2:57 PM THIRD SHIFT LIEUTENANT Mary Anne Marshall documented as of this encounter Plan of Treatment Not on file documented as of this encounter Procedures Procedure Name Priority Date/Time Associated Diagnosis Comments BREAST IMAGING MG SCREENING OUTSIDE REFERENCE Routine 10/23/2020 12:00 AM THIRD SHIFT LIEUTENANT documented in this encounter Results * Breast Imaging Screening Outside Reference (10/23/2020 12:00 AM THIRD SHIFT LIEUTENANT) Impressions [facility] - 08/08/2023 10:07 AM THIRD SHIFT LIEUTENANT These images are for Reference purposes only and have not been reviewed by [facility]iology. There will be no report generated by a [facility] Radiologist. Narrative [facility] - 08/08/2023 10:07 AM THIRD SHIFT LIEUTENANT EXAMINATION: Images For Reference Purposes Only us Provider Transcribed Order IMG MAMMO PROCEDURES Final Result [facility] documented in this encounter Visit Diagnoses Not on filedocumented in this encounter Care Teams Pipelines Manager Relationship Specialty Start Date End Date Andriy Burgos MD [address] [place] [address] PCP - General 03/03/11 11/04/21 documented as of this encounter
--- OUTSIDE RECORDS SUMMARY | 2024-12-12 01:42 | XMS_ITS | Encounter Summary ---
Author Organization [facility] Address [address] [place] [address] Phone Care Team Providers Care Oysterman Name Role Phone Andriy Burgos MD Unavailable [phone] Melani Mclean MD Unavailable [phone] Rajni Jimenez MD Unavailable [phone] Kevin Ryder MD PhD Unavailable Sue Thompson Primary Care Pr ovider Encounter Details Date Type Department Care Team (Late st Contact Info) Description 11/22/2024 Results Follow-Up [facility] [address] [facility] Medical [facility] [address] [place] [address] Melani Mclean MD [facility] [id number] Social History Tobacco Use Types Packs/Day Years [...] on file Legal Sex Female 12:53 AM OPTIMIZATION CONSULTANT Gender Identity Not on file Sexual Orientation Not on file documented as of this encounter Plan of Treatment Not on file documented as of this encounter Visit Diagnoses Not on filedocumented in this encounter Care Teams Oysterman Relationship Specialty Start Date End Date Sue Thompson PA [address] [facility] [address] [place] [address] PCP - General Physician Store Sales Leader 11/13/24 Andriy Burgos MD [address] [place] [address] 11/05/21 Melani Mclean MD [address] [address] Surgeon Surgical Oncology 09/25/23 Rajni Jimenez MD [address] [place] [address] Radiation Oncologist Radiation Oncology 10/31/23 Kevin Ryder MD PhD [address] [place] [address] Medical Oncologist/Access Consultant Medical Oncology 11/01/23 documented as of this encounter
--- OUTSIDE RECORDS SUMMARY | 2024-12-12 01:42 | XMS_ITS ---
Author Organization [facility] Address [address] [address] Care Team Providers Care Jig Boring Machine Operator For Metal Name Role Phone Minnie Bloom Primary Care [...] review and pick correct strength-formulatio n from SocialDiabetesan options. If intended option is not shown, discontinue and re-order from Quick Search* Active Propranolol HCl 10 MG 1 tablet on an empty stomach Orally every 12 hrs as needed for HR over 90 bpm for 30 days 08/16/2024 Active Problems Problem Type SNOMED Code ICD Code Onset Dates Problem Status W/U Status Risk Notes Problem Essential hypertension (32555407) Essential (primary) hypertension (I10) Active confirmed Vital Signs Blood pressure systolic 120 mm Hg 09/10/19 25 Blood pressure diastolic 72 mm Hg 025 Heart Rate 62 /min 09/10/2024 Respiratory Rate 12 /min 09/10/2024 Height 67 in 09/10/2024 Weight 161 lbs 09/10/2024 BMI 25.21 kg/m2 09/10/2024 Encounters Encounter Location Date Provider Diagnosis [facility] - Minnie Bloom [address] [place] [address] 09/10/2024 Minnie Bloom Hypothyroidism, unspecified E03.9 ; [...] heart disease; patient plans to consult a greeter in October. A CT calcium score may be considered for further risk assessment. Continue to monitor cholesterol levels and blood pressure. Upcoming Appointments and Tests Patient has scheduled appointments with other providers and an MRI. Recommend stress management techniques to help minimize fluctuations in cortisol and cholesterol levels. Follow-up:Javier johnson follow-up appointment post-CT calcium score results, [...] procedures, referring and communicating with other health critical care transport nurse, documenting clinical information in the electronic or [...] heart disease; patient plans to consult a greeter in October. A CT calcium score may [...] procedures, referring and communicating with other health critical care transport nurse, documenting clinical information in the electronic or [...] Patsy DEL TOROOB:[birth year] (64 yo F)Acc No.[id number]:09/10/2024 Progress Notes Patient: Katie JOHNSTON Provider: Karli Bloom MD :1960 A ge:64 Y S ex:Female Date:09/10/2024 Address:[address] [place] [address], [facility] Subjective: * Chief Complaints: * 1 . [...] *Please review and pick correct strength-formulation from [employer] options. If intended option is not shown, [...] NEUTROPHILS 49 - % ABSOLUTE NEUTROPHILS 2205 [phone] - cells/u L LYMPHOCYTES 35.1 - % ABSOLUTE LYMPHOCYTES [phone] - cells/uL MONOCYTES 11.9 - % ABSOLUTE [...] heart disease; patient plans to consult a greeter in October. A CT calcium score may [...] procedures, referring and communicating with other health critical care transport nurse, documenting clinical information in the electronic or [...] labwork) * Billing Information: * Visit Code: 70025 Office Visit, Est Pt., Level 4. Modifiers: 95 * Procedure Codes: * SCORER Sign off status: Completed true * Provider: Karli Bloom MD Date: 0 09/10/2024 Generated for Printi ng/Fatonieg/eTransmitting on: 0 12/12/2024 01:42 AM CDT History and Physical Notes * [...]
--- OUTSIDE RECORDS SUMMARY | 2024-12-12 01:42 | XMS_ITS | Encounter Summary ---
Author Organization [facility] Address [address] [place] [address] Care Team Providers Care Recreation Manager Name Role Phone Andriy Burgos MD Primary Care Provider Reason for Visit * Diagnostic Imaging (Routine) - Closed Specialty Diagnoses / Procedures Referred By Contac t Referred To Contact Procedures Breast Imaging Diagnostic Outside Reference Transcribed Order, Provider Referral ID Status Reason Start Date Expiration Date Visits Re quested Visits Authorized [id number] Closed 08/08/2023 09/06/2024 1 1 Encounter Details Date Type Department Care Team (Late st Contact Info) Description 08/07/2018 Hospital Encounter [facility] [address] [place] [address] Social History Tobacco Use Types Packs/Day [...] on file Legal Sex Female 12:53 AM INSPECTOR TOYS Gender Identity Not on file Sexual Orientation Not on file documented as of this encounter Functional Status * Audit-C Score Answer Date of Assessment Author 1 09/25/2023 6:42 AM INSPECTOR TOYS Shaylee Herrera RN * Question Answer Date of Assessment Author Q1: How often do you have a drink containing alcohol? 2-3 times a week 11/01/2023 2:10 PM INSPECTOR TOYS Lillie Grissom , EDDIE Q2: How many drinks containing alcohol do you have on a typical day when you are drinking? 3 or 4 11/03/2023 2:57 PM INSPECTOR TOYS Mary Anne Marshall Q3: How often do you have six or more drinks on one occasion? Weekly 11/03/2023 2:57 PM INSPECTOR TOYS Mary Anne Marshall documented as of this encounter Plan of Treatment Not on file documented as of this encounter Procedures Procedure Name Priority Date/Time Associated Diagnosis Comments BREAST IMAGING MG DIAGNOSTIC OUTSIDE REFERENCE Routine 08/07/2018 12:00 AM INSPECTOR TOYS documented in this encounter Results * Breast Imaging Diagnostic Outside Reference (08/07/2018 12:00 AM INSPECTOR TOYS) Impressions [facility] - 08/08/2023 10:03 AM INSPECTOR TOYS These images are for Reference purposes only and have not been reviewed by [facility]iology. There will be no report generated by a [facility] Radiologist. Narrative [facility] - 08/08/2023 10:03 AM INSPECTOR TOYS EXAMINATION: Images For Reference Purposes Only us Provider Transcribed Order IMG MAMMO PROCEDURES Final Result [facility] documented in this encounter Visit Diagnoses Not on filedocumented in this encounter Care Teams Recreation Manager Relationship Specialty Start Date End Date Andriy Burgos MD [address] [place] [id number] PCP - General 03/03/11 11/04/21 documented as of this encounter
--- OUTSIDE RECORDS SUMMARY | 2024-12-12 01:42 | XMS_ITS ---
Author Organization [facility] Address [address] [address] Care Team Providers Care Sharepoint Specialist Name Role Phone Minnie Bloom Primary Care Provider [phone] REASON FOR VISIT heart palpitations amanda Medications [...] review and pick correct strength-formulatio n from [employer] options. If intended option is not shown, discontinue and re-order from Quick Search* Active Liothyronine Sodium 5 MCG 1 tab(s) orally once a day at noon for 90 days 04/12/2024 Active Problems Problem Type SNOMED Code ICD Code Onset Dates Problem Status W/U Status Risk Notes Problem Obesity (490079825) Obesity, unspecified (E66.9) Active confirmed Vital Signs Blood pressure systolic 128 mm Hg 08/16/20 24 Blood pressure diastolic 68 mm Hg 024 Heart Rate 61 /min 08/16/2024 Respiratory Rate 12 /min 08/16/2024 Height 67 in 08/16/2024 Weight 160 lbs 08/16/2024 BMI 25.06 kg/m2 08/16/2024 Encounters Encounter Location Date Provider Diagnosis [facility] - Minnie Bloom [address] [place] [address] 08/16/2024 Minnie Bloom Obesity, unspecified E66.9 ; [...] to Ativan (Lorazepam) - Patient to inform nc manager about propranolol prescription 5. Cardiology follow-up - Patient has appointments with nc manager Dr. Romain Washburn and Sue Miller - Continue monitoring heart health and addressing any concerns with specialists 6. Medication refill and inventory - Patient has sufficient supply of Tirosint and additional 100 mcg dosage if needed - Propranolol prescription sent to [facility] for patient pick-up Spent 15 minutes preventative [...] examination and/or evaluation, counseling and educating the patient/family/animal caretaker, ordering medications, tests, or procedures, referring and communicating with other health direct support professional caregiver, documenting clinical information in the electronic or other health record, independently interpreting results and communicating results to the patient/family/animal caretaker and care coordinating patient plan. Patient alert [...] to Ativan (Lorazepam) - Patient to inform nc manager about propranolol prescription 5. Cardiology follow-up - Patient has appointments with nc manager Dr. Romain Washburn and Sue Miller - Continue monitoring heart health and addressing any concerns with specialists 6. Medication refill and inventory - Patient has sufficient supply of Tirosint and additional 100 mcg dosage if needed - Propranolol prescription sent to [facility] for patient pick-up Spent 15 minutes preventative [...] procedures, referring and communicating with other health direct support professional caregiver, documenting clinical information in the electronic or [...] * KATEY PatsyOB:[birth year] (64 yo F)Acc No.[id number]:08/16/2024 Progress Notes Patient: Katie JOHNSTON Provider: Karli Bloom MD :1960 A ge:64 Y S ex:Female Date:08/16/2024 Address:[address] [place], [place] [id number] Subjective: * Chief Complaints: * 1 . [...] *Please review and pick correct strength-formulation from [employer] options. If intended option is not shown, [...] to Ativan (Lorazepam) - Patient to inform nc manager about propranolol prescription 5. Cardiology follow-up - Patient has appointments with nc manager Dr. Romain Washburn and Sue Miller - Continue monitoring heart health and addressing any concerns with specialists 6. Medication refill and inventory - Patient has sufficient supply of Tirosint and additional 100 mcg dosage if needed - Propranolol prescription sent to [facility] for patient pick-up Spent 15 minutes preventative [...] procedures, referring and communicating with other health direct support professional caregiver, documenting clinical information in the electronic or [...] ? * Procedure Codes: 9 9401 P/M ANIMAL SCIENTIST, INDIV 15 MIN * Follow Up: 4 Weeks (Reason: labwork) * Billing Information: * Visit Code: 26319 Office Visit, Est Pt., Level 4. Modifiers: 95 * Procedure Codes: 38528 P/M ANIMAL SCIENTIST, INDIV 15 MIN. * ING MACHINE OPERATOR ELECTRO GAS Sign off status: Completed true * Provider: Karli Bloom MD Date: 1 10/17/2023 Generated for Sameer rodriguez/Thais/Alvaroitting on: 0 12/12/2024 01:41 AM CDT History and Physical Notes * [...]
--- OUTSIDE RECORDS SUMMARY | 2024-12-12 01:42 | XMS_ITS | Encounter Summary ---
Author Organization [facility] Address [address] [place] [address] Care Team Providers Care Hoistman Name Role Phone Andriy Burgos MD Primary Care Provider [phone] Reason for Visit * Diagnostic Imaging (Routine) - Closed Specialty Diagnoses / Procedures Referred By Contac t Referred To Contact Procedures Breast Imaging Screening Outside Reference Transcribed Order, Provider Referral ID Status Reason Start Date Expiration Date Visits Re quested Visits Authorized [id number] Closed 08/08/2023 09/06/2024 1 1 Encounter Details Date Type Department Care Team (Late st Contact Info) Description 09/23/2019 Hospital Encounter [facility] [address] [place] [address] Social History Tobacco Use Types Packs/Day [...] on file 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 2-3 times a week 11/01/2023 2:10 PM HOT METAL CRANE OPERATOR Lillie Grissom , EDDIE Q2: How many drinks containing alcohol do you have on a typical day when you are drinking? 3 or 4 11/03/2023 2:57 PM HOT METAL CRANE OPERATOR Mary Anne Marshall Q3: How often do you have six or more drinks on one occasion? Weekly 11/03/2023 2:57 PM HOT METAL CRANE OPERATOR Mary Anne Marshall documented as of this encounter Plan of Treatment Not on file documented as of this encounter Procedures Procedure Name Priority Date/Time Associated Diagnosis Comments BREAST IMAGING MG SCREENING OUTSIDE REFERENCE Routine 09/23/2019 12:00 AM HOT METAL CRANE OPERATOR documented in this encounter Results * Breast Imaging Screening Outside Reference (09/23/2019 12:00 AM HOT METAL CRANE OPERATOR) Impressions [facility] - 08/08/2023 10:04 AM HOT METAL CRANE OPERATOR These images are for Reference purposes only and have not been reviewed by [facility] Radiology. There will be no report generated by a [facility] Radiologist. Narrative [facility] - 08/08/2023 10:04 AM HOT METAL CRANE OPERATOR EXAMINATION: Images For Reference Purposes Only us Provider Transcribed Order IMG MAMMO PROCEDURES Final Result [facility] documented in this encounter Visit Diagnoses Not on filedocumented in this encounter Care Teams Hoistman Relationship Specialty Start Date End Date Andriy Burgos MD [address] [place] [id number] PCP - General 03/03/11 11/04/21 documented as of this encounter
--- OUTSIDE RECORDS SUMMARY | 2024-12-12 01:42 | XMS_ITS | Encounter Summary ---
Author Organization [facility] Healthcare Address [address] [place] [address] Care Team Providers Care Client Relationship Executive Name Role Phone Andriy Burgos MD Primary Care Provider [phone] Reason for Visit * Diagnostic Imaging (Routine) - Closed Specialty Diagnoses / Procedures Referred By Contac t Referred To Contact Procedures Breast Imaging Screening Outside Reference Transcribed Order, Provider Referral ID Status Reason Start Date Expiration Date Visits Re quested Visits Authorized [id number] Closed 08/08/2023 09/06/2024 1 1 Encounter Details Date Type Department Care Team (Late st Contact Info) Description 08/01/2018 Hospital Encounter [facility] [address] [place] [address] Social History Tobacco Use Types Packs/Day [...] on file Legal Sex Female 12:53 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 2-3 times a week 11/01/2023 2:10 PM ELECTION CLERK Lillie Grissom , EDDIE Q2: How many drinks containing alcohol do you have on a typical day when you are drinking? 3 or 4 11/03/2023 2:57 PM ELECTION CLERK Mary Anne Marshall Q3: How often do you have six or more drinks on one occasion? Weekly 11/03/2023 2:57 PM ELECTION CLERK Mary Anne Marshall documented as of this encounter Plan of Treatment Not on file documented as of this encounter Procedures Procedure Name Priority Date/Time Associated Diagnosis Comments BREAST IMAGING MG SCREENING OUTSIDE REFERENCE Routine 08/01/2018 12:00 AM ELECTION CLERK documented in this encounter Results * Breast Imaging Screening Outside Reference (08/01/2018 12:00 AM ELECTION CLERK) Impressions [facility] - 08/08/2023 10:02 AM ELECTION CLERK These images are for Reference purposes only and have not been reviewed by [facility] Radiology. There will be no report generated by a [facility] Radiologist. Narrative [facility] - 08/08/2023 10:02 AM ELECTION CLERK EXAMINATION: Images For Reference Purposes Only us Provider Transcribed Order IMG MAMMO PROCEDURES Final Result [facility] documented in this encounter Visit Diagnoses Not on filedocumented in this encounter Care Teams Client Relationship Executive Relationship Specialty Start Date End Date Andriy Burgos MD [address] [place] [address] PCP - General 03/03/11 11/04/21 documented as of this encounter
[2024-12-12 03:14] VITALS: BP 123/92; PULSE 98; RESP 17; O2SAT 99
[2024-12-12 03:30] VITALS: PULSE 96
[2024-12-12 03:38] VITALS: PULSE 96
[2024-12-12] MEDS: APIXABAN 5 MG TABLET PO (03:38)
[2024-12-12] MEDS: METOPROLOL SUCCINATE EXT REL 25 MG TABCR PO (03:38)
== END 2024-12-12 03:46 | disposition home or self-care (01) ==
LOC: ANHED 12-12 01:39
PROVIDERS: Emergency Medicine; Emergency Provider Physician Assistant; PCP Family Medicine
DX: I48.91 Unspecified atrial fibrillation (principal); I10 Essential (primary) hypertension; E03.9 Hypothyroidism, unspecified; F41.1 Generalized anxiety disorder; Z85.3 Personal history of malignant neoplasm of breast; Z87.891 Personal history of nicotine dependence; Z79.899 Other long term (current) drug therapy; R94.31 Abnormal electrocardiogram [ECG] [EKG]
CPT/HCPCS: 36415; 71046; 80053; 83690; 83735; 83880; 84443; 84484; 85025; 85610; 85730; 93005; 96365; 96375; 99284; A9270; J3475; J7030